=== PATIENT | male | born 1955 | race Caucasian/White ===

== ENCOUNTER → 2020-08-11 13:10 | Outpatient (BNVA) | payer MEDICARE, MEDICAID, SELFPAY | PROVIDERS: PCP Internal Medicine; Visit Provider Internal Medicine Endocrinology, Diabetes & Metabolism | DX: E11.65 Type 2 diabetes mellitus with hyperglycemia (principal); E11.21 Type 2 diabetes mellitus with diabetic nephropathy; E11.42 Type 2 diabetes mellitus with diabetic polyneuropathy; Z79.4 Long term (current) use of insulin; E53.8 Deficiency of other specified B group vitamins; E55.9 Vitamin D deficiency, unspecified; I10 Essential (primary) hypertension; E78.5 Hyperlipidemia, unspecified; E66.9 Obesity, unspecified; Z68.34 Body mass index [BMI] 34.0-34.9, adult | CPT/HCPCS: 82947; 99214 ==

== ENCOUNTER 2020-10-07 09:48 | Emergency (ER) | payer MEDICARE, MEDICAID, SELFPAY ==
[2020-10-07 09:50] VITALS: BP 147/69; BP 181/98; PULSE 104; PULSE 95; RESP 20; TEMP 36.7; O2SAT 94; O2SAT 97; BMI 35.3
--- NOTE | 2020-10-07 09:56 | CT_ITS ---
EXAMINATION: CT CERVICAL SPINE WITHOUT CONTRAST CLINICAL INFORMATION: Right arm pain COMPARISON: None TECHNIQUE: 3 mm thin axial and reformatted 2 mm thin sagittal and coronal images of cervical spine were obtained. This CT examination was performed using dose optimization techniques as appropriate, variously including the following: *Automated exposure control *Adjustment of mA and/or kV according to patient size (this includes techniques or standardized protocols for targeted exams where dose is matched to indication/reason for exam; i.e. extremities or head) *Use of iterative reconstruction technique DLP: 598 mGy-cm FINDINGS: There is mild straightening of cervical lordosis. There is loss of C5-C6, C6-C7 and C7-T1 disc levels with moderate ventral and posterior spondylosis. Rest the disc heights are normal. No visible acute fracture, dislocation or subluxation seen. There is bilateral C5-C6 and C6-C7 neural foraminal narrowing greater on the right at the C5-C6 disc level. The craniovertebral junction and the C1-C2 alignment is normal. The prevertebral and paravertebral soft tissues are normal. CT/CT cervical spine wo con IMPRESSION: Degenerative disc changes C5-C6 and C6-C7 disc levels with ventral and posterior spondylosis. There is no visible acute fracture, dislocation or subluxation seen.
--- NOTE | 2020-10-07 10:04 | ED_ITS ---
HPI - Extremity Problem General Chief complaint: Extremity Injury, Upper Stated complaint: arm pain Time Seen by Provider: 10/07/20 09:56 Source: patient Mode of arrival: ambulatory Limitations: no limitations History of Present Illness HPI Narrative: has been taking some OTC medication 250mg - 6 tabs a day up to 4 or 5 times a day unsure of what it is MD Complaint: extremity pain Onset (ago): week(s) (3) Pain Consistency: constant Location: right, upper extremity and other (also feels his right pinkie finger is numb) Quality: aching Radiation: none Relieving factors: nothing Exacerbating factors: nothing Associated symptoms: denies other symptoms Related Data Home Medications Medication Instructions Recorded Confirmed cyanocobalamin (vitamin B-12) 1,000 mcg SUBLINGUAL DAILY 08/11/20 09/24/20 1,000 mcg sublingual tablet nifedipine 30 mg tablet,extended 30 mg PO DAILY 08/11/20 09/24/20 release pen needle, diabetic 31 gauge x #1200 ea 08/11/20 09/24/2003/01 Previous Rx's Medication Instructions Recorded blood sugar diagnostic #300 ea 08/11/20 blood-glucose meter #1 ea 08/11/20 cholecalciferol (vitamin D3) 125 125 mcg PO DAILY 90 Days #90 cap 08/11/20 mcg (5,000 unit) capsule insulin degludec 200 unit/mL (3 70 unit SUBCUT DAILY 90 Days #45 ml 08/11/20 mL) subcutaneous pen lancets 28 gauge #300 ea 08/11/20 metformin 1,000 mg tablet 1,000 mg PO BID 90 Days #180 tab 08/11/20 repaglinide 1 mg tablet 1 mg PO TID 90 Days #270 tab 08/11/20 sitagliptin 100 mg tablet 100 mg PO DAILY 90 Days #90 tab 08/11/20 fluticasone 250 mcg-salmeterol 50 1 ea PO BID #180 cap 08/18/20 mcg/dose blistr powdr for inhalation lisinopril 5 mg tablet 5 mg PO DAILY #90 tab 08/29/20 simvastatin 40 mg tablet 40 mg PO BEDTIME #90 tab 09/01/20 sertraline 50 mg tablet 50 mg PO DAILY #90 tab 09/03/20 cyclobenzaprine 10 mg PO TID PRN #14 tab 12/22/20 hydrocodone-acetaminophen 1 tab PO Q6H PRN #12 tab 10/07/20 lidocaine 1 patch TOPICAL DAILY PRN #10 ea 10/07/20 Allergies Allergy/AdvReac Type Severity Reaction Status Date / Time No Known Allergies Allergy Unverified 07/03/20 15:01 [No Known Allergies*] Review of Systems Review of Systems: Constitutional : No Fever, No Chills ENT/Mouth : No Ear Pain, No Hoarseness, No sore throat Eyes: No Eye Pain, No Swelling, No Redness, No Foreign Body Cardiovascular : No Chest Pain, No SOB Respiratory : No Cough, No Dyspnea Gastrointestinal : No Nausea, No Vomiting, No Diarrhea, No abdominal Pain Genitourinary : No Dysuria, No Hematuria Musculoskeletal : positive joint pain, No Myalgias, No Joint Swelling Skin : No Skin lacerations, No rash Neuro : No Weakness, No Numbness, No Loss of Consciousness, No Dizziness, No Headache All other systems reviewed and are negative PMFSH Past Medical History Attestation statement: The following information was validated with the patient. Medical History B12 deficiency Depression, major, recurrent Diabetes type 2, uncontrolled Diabetic nephropathy Diabetic polyneuropathy associated with type 2 diabetes mellitus Dyslipidemia Hypertension halfway (current) use of insulin Obesity (BMI 30-39.9) Pain in right elbow Vitamin D deficiency Surgical History History of back surgery History of surgery of head Family History Family History Father Diabetes Mother Alzheimers disease Social History Social History Smoking Status: Current every day smoker Advance Directives: No Advance Directives Information Provided: Yes Physical Exam Vital Signs: Vital Signs: Last Vital Signs Temp 98.1 F 10/07/20 09:50 Pulse 95 10/07/20 09:50 Resp 20 10/07/20 09:50 BP 147/69 H 10/07/20 09:50 Pulse Ox 94 10/07/20 09:50 Body Mass Index 35.3 Appearance: Alert. Oriented X3. No acute distress. Eyes: Pupils equal, round and reactive to light. ENT: Pharynx normal. Neck: Normal inspection. Neck supple. negative spurling's CVS: Normal heart rate and rhythm. Pulses normal. Respiratory: No respiratory distress. Breath sounds normal. Abdomen: Soft and nontender. Skin: Skin warm and dry. Normal skin color. Normal skin turgor. Extremities: No lower extremity edema. No calf ttp reports pain in R forearm but not to palpation full ROM normal skin appearance no signs of infection, distal NV intact reports some tingling in R pinkie finger (in the whole finger) BCR in all digits, 2+ radial pulse Neuro: Oriented X 3. No motor deficit. No sensory deficit. Course Course Course Narrative: suspect radicular neck pain will start on PO pain medications stable for DC MDM - Extremity (Nontraumatic) MDM Narrative Medical decision making narrative: 65 yo male with DM here with 3 weeks of atraumatic R forearm pain no signs of infection/trauma/swelling/gout - he is NV intact, pain cannot be reproduced on my exam, bounding pulses, reports some decrease in sensation in R pinkie, will need labs due to taking OTC medication check Cr and liver, CT cspine for radicular pain as I cannot reproduce his pain, PO pain medications Lab Data Result diagrams: 10/07/20 10:24 10/07/20 10:24 Labs: Lab Results 10/07/20 10/07/20 10/07/20 Range/Units 10:24 10:24 10:24 WBC 8.7 (4.8-10.8) X10*3/uL RBC 5.07 (4.60-5.80) X10*6/uL Hgb 15.0 (14.0-18.0) g/dl Hct 44.7 (42-52) % MCV 88.2 (80-98) fL MCH 29.6 (27.0-33.0) pg MCHC 33.6 (31.0-36.0) g/dl RDW 14.5 (11.0-16.0) % Plt Count 261 (160-400) X10*3/uL MPV 9.5 (9.4-12.4) fL Immature Gran % (Auto) 0.9 H (0.0-0.4) % Neut % (Auto) 71.6 (45-73) % Lymph % (Auto) 15.5 L (20-40) % [place] % (Auto) 9.9 (2-11) % Eos % (Auto) 1.8 (0-4) % Baso % (Auto) 0.3 (0-2) % Lymph # (Auto) 1.3 (1.2-4.9) X10*3/uL [place] # (Auto) 0.9 (0.1-1.2) X10*3/uL Eos # (Auto) 0.2 (0.0-0.4) X10*3/uL Baso # (Auto) 0.0 (0.0-0.2) X10*3/uL Abs Immat Gran (auto) 0.08 H (0.00-0.03) X10*3/uL Absolute Neuts (auto) 6.2 (2.0-8.3) X10*3/uL Absolute Nucleated RBC 0.000 (0.0-0.012) X10*3/uL Nucleated RBC % (auto) 0.0 (0.0-0.2) /100WBC Sodium 136 (135-145) mmol/L Potassium 4.4 (3.3-5.1) mmol/l Chloride 104 (96-108) mmol/L Carbon Dioxide 22 (22-29) mmol/L Anion Gap 14 (12-20) BUN 20 H (9-16) mg/dL Creatinine 1.02 (0.5-1.4) mg/dL Estim Creat Clear Calc 90.6 Estimated GFR > 60 Random Glucose 242 H (60-115) mg/dL Calcium 10.3 H (8.4-10.2) mg/dL Total Bilirubin 0.3 (0.0-1.0) mg/dL Direct Bilirubin < 0.2 (0.0-0.5) mg/dL AST 14 (5-37) U/L ALT 32 (0-40) U/L Alkaline Phosphatase 58 (39-117) U/L Total Protein 7.1 (6.5-8.0) g/dL Albumin 4.3 (3.5-5.0) g/dL Discharge Plan Discharge Clinical Impression: Cervical radicular pain Arm pain Qualifiers: Laterality: right Qualified Code(s): M79.601 - Pain in right arm Patient Disposition: Home, Self-Care Instructions: Cervical Radiculopathy (ED), Arm Pain (ED) Additional Instructions: return to ED for any worsening symptoms or concerns your doctor needs to refer you to PT and possibly MRI of your neck if this does not improve Prescriptions: New cyclobenzaprine 10 mg tablet 10 mg PO TID PRN (Reason: muscle spasm) Qty: 14 RF: 0 lidocaine 4 % adhesive patch,medicated 1 patch topical DAILY PRN (Reason: pain) Qty: 10 RF: 0 hydrocodone-acetaminophen 5-325 mg tablet 1 tab PO Q6H PRN (Reason: pain) Qty: 12 RF: 0 No Action fluticasone propion-salmeterol [Advair Diskus] 250-50 mcg/dose blister with device 1 ea PO BID Qty: 180 RF: 0 lisinopril 5 mg tablet 5 mg PO DAILY Qty: 90 RF: 2 simvastatin 40 mg tablet 40 mg PO BEDTIME Qty: 90 RF: 0 sertraline 50 mg tablet 50 mg PO DAILY Qty: 90 RF: 0 nifedipine 30 mg tablet extended release 30 mg PO DAILY RF: 0 (DME) pen needle, diabetic 31 gauge x 5/16 needle See Rx Instructions ea subcut .MEDSUPPLY Qty: 1200 RF: 0 cyanocobalamin (vitamin B-12) 1,000 mcg tablet, sublingual 1,000 mcg sublingual DAILY RF: 0 insulin degludec 200 unit/mL (3 mL) insulin pen 70 unit subcut DAILY 90 Days Qty: 45 RF: 1 metformin 1,000 mg tablet 1,000 mg PO BID 90 Days Qty: 180 RF: 1 sitagliptin 100 mg tablet 100 mg PO DAILY 90 Days Qty: 90 RF: 1 repaglinide 1 mg tablet 1 mg PO TID 90 Days Qty: 270 RF: 1 (DME) blood-glucose meter [FreeStyle Lite Meter] Kit See Rx Instructions .ROUTE .MEDSUPPLY Qty: 1 RF: 0 (DME) FreeStyle Lite Strips Strip See Rx Instructions .ROUTE .MEDSUPPLY Qty: 300 RF: 1 (DME) lancets [FreeStyle Lancets] 28 gauge misc See Rx Instructions .ROUTE .MEDSUPPLY Qty: 300 RF: 1 cholecalciferol (vitamin D3) 125 mcg (5,000 unit) capsule 125 mcg PO DAILY 90 Days Qty: 90 RF: 1 Referrals: Toby Pugh MD [Primary Care Provider] - 5 days (if not better)
[2020-10-07] MEDS: oxyCODONE HCl Immed Release 5 MG TABLET 10 MG PO (10:12)
--- NOTE | 2020-10-07 10:20 | PC.NURSE ---
Patient states he has been take 6 orange pills that are 250mg multiple times a day for 3 weeks
[2020-10-07 10:34] LABS: MANUAL DIFF FLAG NO
[2020-10-07 10:35] LABS: Basophils Percent Auto 0.3 % (0-2); Eosinophils Absolute Auto 0.2 X10*3/uL (0.0-0.4); Eosinophils Percent Auto 1.8 % (0-4); Hematocrit 44.7 % (42-52); Imm Gran Abs Auto 0.08 X10*3/uL (0.00-0.03); Imm Gran Pct Auto 0.9 % (0.0-0.4); Lymphocytes Absolute Auto 1.3 X10*3/uL (1.2-4.9); Lymphocytes Percent Auto 15.5 % (20-40); Mean Corpuscular HGB Conc 33.6 g/dl (31.0-36.0); Mean Corpuscular Hemoglobin 29.6 pg (27.0-33.0); Mean Corpuscular Volume 88.2 fL (80-98); Mean Platelet Volume 9.5 fL (9.4-12.4); Monocytes Absolute Auto 0.9 X10*3/uL (0.1-1.2); Monocytes Percent Auto 9.9 % (2-11); Neutrophils Absolute Auto 6.2 X10*3/uL (2.0-8.3); Neutrophils Percent Auto 71.6 % (45-73); Platelet Count 261 X10*3/uL (160-400); Red Blood Count 5.07 X10*6/uL (4.60-5.80); Red Cell Distribution Width 14.5 % (11.0-16.0); White Blood Count 8.7 X10*3/uL (4.8-10.8)
[2020-10-07 11:01] LABS: Alanine Aminotransferase 32 U/L (0-40); Albumin Level 4.3 g/dL (3.5-5.0); Alkaline Phosphatase 58 U/L (39-117); Aspartate Amino Transferase 14 U/L (5-37); Bilirubin Direct < 0.2 mg/dL (0.0-0.5); Bilirubin Total 0.3 mg/dL (0.0-1.0); Total Protein 7.1 g/dL (6.5-8.0)
[2020-10-07 11:02] LABS: Anion Gap 14 (12-20); Blood Urea Nitrogen 20 mg/dL (9-16); Calcium 10.3 mg/dL (8.4-10.2); Carbon Dioxide 22 mmol/L (22-29); Chloride 104 mmol/L (96-108); Creatinine Clr Calc Pharmacy 90.6; Estimated Glomerular Filt Rate > 60; Glucose Random 242 mg/dL (60-115); Potassium 4.4 mmol/l (3.3-5.1); Sodium 136 mmol/L (135-145)
== END 2020-10-07 11:44 | disposition home or self-care (01) ==
PROVIDERS: Emergency Provider Emergency Medicine; PCP Internal Medicine
DX: M54.2 Cervicalgia (principal); M79.601 Pain in right arm; F17.200 Nicotine dependence, unspecified, uncomplicated; Z71.6 Tobacco abuse counseling; Z79.899 Other long term (current) drug therapy
CPT/HCPCS: 36415; 72125; 80048; 80076; 85025; 99284

== ENCOUNTER → 2020-12-08 13:45 | Outpatient (BNVA) | payer MEDICARE, MEDICAID, SELFPAY | PROVIDERS: PCP Internal Medicine; Visit Provider Internal Medicine Endocrinology, Diabetes & Metabolism | DX: E11.65 Type 2 diabetes mellitus with hyperglycemia (principal); E11.42 Type 2 diabetes mellitus with diabetic polyneuropathy; E11.21 Type 2 diabetes mellitus with diabetic nephropathy; E53.8 Deficiency of other specified B group vitamins; E55.9 Vitamin D deficiency, unspecified; E78.5 Hyperlipidemia, unspecified; E66.9 Obesity, unspecified; I10 Essential (primary) hypertension; Z79.4 Long term (current) use of insulin | CPT/HCPCS: 82947; 99212 ==

== ENCOUNTER → 2021-11-27 12:59 | Outpatient (BNVA) | payer OTHER, MEDICAID, SELFPAY | PROVIDERS: PCP Internal Medicine; Visit Provider Nurse Practitioner Gerontology | DX: E11.65 Type 2 diabetes mellitus with hyperglycemia (principal); E11.42 Type 2 diabetes mellitus with diabetic polyneuropathy; E11.21 Type 2 diabetes mellitus with diabetic nephropathy; E53.8 Deficiency of other specified B group vitamins; E55.9 Vitamin D deficiency, unspecified; E78.5 Hyperlipidemia, unspecified; E66.9 Obesity, unspecified; I10 Essential (primary) hypertension; Z79.4 Long term (current) use of insulin; Z68.37 Body mass index [BMI] 37.0-37.9, adult | CPT/HCPCS: 82947; 83036; 99212 ==

== ENCOUNTER 2022-02-24 09:43 | Outpatient (REF) | payer OTHER, SELFPAY ==
--- NOTE | ~2022-02-24 | XR_ITS ---
EXAMINATION: XR knee RT 2V CLINICAL INFORMATION: Reason for Exam M25.561 - Pain in right knee COMPARISON: Prior x-ray 2019 TECHNIQUE: frontal, lateral, tunnel and patella sunrise views FINDINGS: BONES: No fracture or dislocation is present. JOINTS: Narrowing of joint spaces and developed osteophytes from the edges of articular surfaces suggest degenerative osteoarthritis. SOFT TISSUE: Intra-articular calcification suggesting chondrocalcinosis, this has been described in association with CPPD. XR/XR knee RT 2V IMPRESSION: Moderate degenerative osteoarthritis. Intra-articular calcification chondrocalcinosis, this has been described in association with CPPD. Please correlate with patient's laboratory data.
--- NOTE | ~2022-02-24 | XR_ITS ---
EXAMINATION: 2 views left knee. CLINICAL INFORMATION: Pain COMPARISON: Prior x-ray 2019 TECHNIQUE: Frontal and lateral views. FINDINGS: BONES: No fracture or dislocation is present. JOINTS: Narrowing of joint spaces and developed osteophytes from the edges of articular surfaces suggest degenerative osteoarthritis. SOFT TISSUE: Intra-articular calcification suggesting chondrocalcinosis, this has been described in association with CPPD. XR/XR knee LT 2V IMPRESSION: Moderate degenerative osteoarthritis. Intra-articular calcification chondrocalcinosis, this has been described in association with CPPD. Please correlate with patient's laboratory data.
[2022-02-24 12:17] LABS: Vitamin D 25-OH Total 14.6 ng/mL (>30)
[2022-02-24 12:21] LABS: Alanine Aminotransferase 33 U/L (0-40); Albumin Level 3.8 g/dL (3.5-5.0); Alkaline Phosphatase 107 U/L (39-117); Anion Gap 14 (12-20); Aspartate Amino Transferase 22 U/L (5-37); Bilirubin Total 0.3 mg/dL (0.0-1.0); Blood Urea Nitrogen 12 mg/dL (9-16); Carbon Dioxide 23 mmol/L (22-29); Chloride 103 mmol/L (96-108); Cholesterol 184 mg/dL; Estimated Glomerular Filt Rate > 60; Glucose Fasting 310 mg/dL (60-99); HDL Cholesterol 27 mg/dL; Potassium 4.5 mmol/L (3.3-5.1); Sodium 135 mmol/L (135-145); Total Protein 6.9 g/dL (6.5-8.0); Triglycerides 407 mg/dL
[2022-02-24 12:28] LABS: Vitamin B12 297 pg/mL (200-900)
[2022-02-26 05:27] LABS: LDL Cholesterol Direct 120 mg/dL (<100)
== END 2022-02-24 09:44 | disposition home or self-care (01) ==
LOC: HO.HMGCX 09:43
PROVIDERS: Absent Provider Internal Medicine; PCP Internal Medicine; Visit Provider Nurse Practitioner Gerontology
DX: M25.561 Pain in right knee (principal); M25.562 Pain in left knee; E11.65 Type 2 diabetes mellitus with hyperglycemia; E55.9 Vitamin D deficiency, unspecified
CPT/HCPCS: 36415; 73560; 80053; 80061; 82306; 82607; 83721

== ENCOUNTER 2022-04-29 07:54 | Outpatient (REF) | payer OTHER, SELFPAY ==
--- NOTE | ~2022-04-29 | XR_ITS ---
EXAMINATION: XR KNEE AP STANDING XR KNEE, RIGHT XR KNEE, LEFT CLINICAL INFORMATION: Bilateral knee pain. COMPARISON: Radiographs bilateral knees 02/24/2022. TECHNIQUE: Standing AP view of both knees is performed. Axial view of each patella is also performed. FINDINGS: Right: No fracture or dislocation or destructive process. Borderline narrowing lateral knee joint compartment. No subchondral sclerosis. There is again extensive chondrocalcinosis involving both the menisci and articular cartilage. No erosive changes. No lateralization or tilting patella. Mineralization in region of proximal medial collateral ligament is likely related to remote MCL injury (Jai striata). Left: No fracture or dislocation or destructive process. No significant joint narrowing. No subchondral sclerosis. There is again extensive chondrocalcinosis involving both the menisci and articular cartilage. No erosive changes. No lateralization or tilting patella. XR/XR knee RT 1V IMPRESSION: Right: -Extensive chondrocalcinosis menisci and articular cartilage. No erosive change. -Borderline narrowing lateral compartment. No lateralization or tilting patella. -Focal mineralization in region of proximal medial collateral ligament, likely remote injury. Left: -Extensive chondrocalcinosis menisci and articular cartilage. No erosive change. -No definite knee joint narrowing. No lateralization or tilting patella.
--- NOTE | ~2022-04-29 | XR_ITS ---
EXAMINATION: XR KNEE AP STANDING XR KNEE, RIGHT XR KNEE, LEFT CLINICAL INFORMATION: Bilateral knee pain. COMPARISON: Radiographs bilateral knees 02/24/2022. TECHNIQUE: Standing AP view of both knees is performed. Axial view of each patella is also performed. FINDINGS: Right: No fracture or dislocation or destructive process. Borderline narrowing lateral knee joint compartment. No subchondral sclerosis. There is again extensive chondrocalcinosis involving both the menisci and articular cartilage. No erosive changes. No lateralization or tilting patella. Mineralization in region of proximal medial collateral ligament is likely related to remote MCL injury (Jai striata). Left: No fracture or dislocation or destructive process. No significant joint narrowing. No subchondral sclerosis. There is again extensive chondrocalcinosis involving both the menisci and articular cartilage. No erosive changes. No lateralization or tilting patella. XR/XR knee standing BI IMPRESSION: Right: -Extensive chondrocalcinosis menisci and articular cartilage. No erosive change. -Borderline narrowing lateral compartment. No lateralization or tilting patella. -Focal mineralization in region of proximal medial collateral ligament, likely remote injury. Left: -Extensive chondrocalcinosis menisci and articular cartilage. No erosive change. -No definite knee joint narrowing. No lateralization or tilting patella.
--- NOTE | ~2022-04-29 | XR_ITS ---
EXAMINATION: XR KNEE AP STANDING XR KNEE, RIGHT XR KNEE, LEFT CLINICAL INFORMATION: Bilateral knee pain. COMPARISON: Radiographs bilateral knees 02/24/2022. TECHNIQUE: Standing AP view of both knees is performed. Axial view of each patella is also performed. FINDINGS: Right: No fracture or dislocation or destructive process. Borderline narrowing lateral knee joint compartment. No subchondral sclerosis. There is again extensive chondrocalcinosis involving both the menisci and articular cartilage. No erosive changes. No lateralization or tilting patella. Mineralization in region of proximal medial collateral ligament is likely related to remote MCL injury (Jai striata). Left: No fracture or dislocation or destructive process. No significant joint narrowing. No subchondral sclerosis. There is again extensive chondrocalcinosis involving both the menisci and articular cartilage. No erosive changes. No lateralization or tilting patella. XR/XR knee LT 1V IMPRESSION: Right: -Extensive chondrocalcinosis menisci and articular cartilage. No erosive change. -Borderline narrowing lateral compartment. No lateralization or tilting patella. -Focal mineralization in region of proximal medial collateral ligament, likely remote injury. Left: -Extensive chondrocalcinosis menisci and articular cartilage. No erosive change. -No definite knee joint narrowing. No lateralization or tilting patella.
== END 2022-04-29 07:55 | disposition home or self-care (01) ==
LOC: HO.HOSX 07:54
PROVIDERS: Visit Provider Physician Assistant
DX: M17.2 Bilateral post-traumatic osteoarthritis of knee (principal)
CPT/HCPCS: 73560; 73565; 99202

== ENCOUNTER 2022-09-29 13:27 | Outpatient (REF) | payer OTHER, SELFPAY ==
[2022-09-29 16:32] LABS: MANUAL DIFF FLAG NO
[2022-09-29 16:36] LABS: Basophils Percent Auto 0.2 % (0-2); Eosinophils Absolute Auto 0.2 X10*3/uL (0.0-0.4); Eosinophils Percent Auto 2.1 % (0-4); Hematocrit 43.8 % (42.0-52.0); Hemoglobin 14.5 g/dl (14.0-18.0); Imm Gran Abs Auto 0.05 X10*3/uL (0.00-0.03); Imm Gran Pct Auto 0.6 % (0.0-0.4); Lymphocytes Absolute Auto 1.7 X10*3/uL (1.2-4.9); Lymphocytes Percent Auto 19.7 % (20-40); Mean Corpuscular HGB Conc 33.1 g/dl (31.0-36.0); Mean Corpuscular Hemoglobin 29.4 pg (27.0-33.0); Mean Corpuscular Volume 88.7 fL (80.0-98.0); Monocytes Absolute Auto 0.8 X10*3/uL (0.1-1.2); Monocytes Percent Auto 8.9 % (2-11); Neutrophils Percent Auto 68.5 % (45-73); Platelet Count 255 X10*3/uL (160-400); Red Blood Count 4.94 X10*6/uL (4.60-5.80); Red Cell Distribution Width 14.1 % (11.0-16.0); White Blood Count 8.7 X10*3/uL (4.8-10.8)
[2022-09-29 16:46] LABS: Estimated Average Glucose 203 mg/dL; Hemoglobin A1c % 8.7 %
[2022-09-29 17:19] LABS: Alanine Aminotransferase 35 U/L (0-40); Albumin Level 4.1 g/dL (3.5-5.0); Alkaline Phosphatase 78 U/L (39-117); Anion Gap 14 (12-20); Aspartate Amino Transferase 23 U/L (5-37); Bilirubin Total 0.4 mg/dL (0.0-1.0); Blood Urea Nitrogen 16 mg/dL (9-16); Calcium 9.5 mg/dL (8.4-10.2); Carbon Dioxide 23 mmol/L (22-29); Chloride 104 mmol/L (96-108); Estimated Glomerular Filt Rate > 60; Glucose Random 183 mg/dL (60-115); Potassium 4.2 mmol/L (3.3-5.1); Sodium 137 mmol/L (135-145); TSH reflex Free T4 1.68 uIU/mL (0.32-4.0); Total Protein 6.8 g/dL (6.5-8.0)
[2022-09-29 17:28] LABS: Vitamin B12 425 pg/mL (200-900)
[2022-10-06 16:14] LABS: LDL Cholesterol Direct 160 mg/dL (<100); Vitamin D 25-OH, D2 <4 ng/mL; Vitamin D 25-OH, D3 14 ng/mL; Vitamin D 25-OH, Total 14 ng/mL (30-100)
== END 2022-09-29 13:28 | disposition home or self-care (01) ==
LOC: HO.HMGCLDS 13:27
PROVIDERS: PCP Internal Medicine; Visit Provider Internal Medicine
DX: E11.21 Type 2 diabetes mellitus with diabetic nephropathy (principal); E11.42 Type 2 diabetes mellitus with diabetic polyneuropathy; E11.65 Type 2 diabetes mellitus with hyperglycemia; E53.8 Deficiency of other specified B group vitamins; E55.9 Vitamin D deficiency, unspecified; E66.9 Obesity, unspecified; E78.5 Hyperlipidemia, unspecified; F33.9 Major depressive disorder, recurrent, unspecified; I10 Essential (primary) hypertension; Z79.4 Long term (current) use of insulin
CPT/HCPCS: 36415; 80053; 82306; 82607; 83036; 83721; 84443; 85025

== ENCOUNTER 2023-01-28 14:38 | Outpatient (REF) | payer OTHER, SELFPAY ==
[2023-01-28 16:35] LABS: Hematocrit 45.1 % (42.0-52.0); Hemoglobin 15.2 g/dl (14.0-18.0)
[2023-01-28 16:40] LABS: Estimated Average Glucose 223 mg/dL; Hemoglobin A1c % 9.4 %
[2023-01-28 16:51] LABS: Alanine Aminotransferase 37 U/L (0-40); Albumin Level 4.2 g/dL (3.5-5.0); Alkaline Phosphatase 99 U/L (39-117); Anion Gap 12 (12-20); Aspartate Amino Transferase 25 U/L (5-37); Bilirubin Total 0.5 mg/dL (0.0-1.0); Blood Urea Nitrogen 9 mg/dL (9-16); Calcium 9.6 mg/dL (8.4-10.2); Carbon Dioxide 23 mmol/L (22-29); Chloride 105 mmol/L (96-108); Estimated Glomerular Filt Rate > 60; Glucose Random 133 mg/dL (60-115); Potassium 4.2 mmol/L (3.3-5.1); Sodium 136 mmol/L (135-145); Total Protein 7.1 g/dL (6.5-8.0)
[2023-01-30 09:43] LABS: LDL Cholesterol Direct 128 mg/dL (<100)
== END 2023-01-28 14:39 | disposition home or self-care (01) ==
LOC: HO.HMGCLDS 14:38
PROVIDERS: PCP Internal Medicine; Visit Provider Internal Medicine
DX: E11.42 Type 2 diabetes mellitus with diabetic polyneuropathy (principal); E11.65 Type 2 diabetes mellitus with hyperglycemia; E66.9 Obesity, unspecified; E78.5 Hyperlipidemia, unspecified; F33.9 Major depressive disorder, recurrent, unspecified; I10 Essential (primary) hypertension; Z79.4 Long term (current) use of insulin
CPT/HCPCS: 36415; 80053; 83036; 83721; 85014; 85018

== ENCOUNTER 2023-06-15 19:18 | Emergency (ER) | payer OTHER, SELFPAY ==
--- NOTE | ~2023-06-15 | CT_ITS ---
EXAMINATION: CT CERVICAL SPINE WITHOUT CONTRAST CLINICAL INFORMATION: Neck pain COMPARISON: Portions of a previous study 10/07/20 TECHNIQUE: Multidetector CT. Examination of the cervical spine. No contrast. This CT examination was performed using dose optimization techniques as appropriate, variously including the following: *Automated exposure control *Adjustment of mA and/or kV according to patient size (this includes techniques or standardized protocols for targeted exams where dose is matched to indication/reason for exam; i.e. extremities or head) *Use of iterative reconstruction technique DLP: 541 mGy-cm FINDINGS: Study limited by motion artifact There is no acute fracture or subluxation. There is reversal of expected lordosis. There is marked narrowing of the C5/C6 and C6/C7 discs. There is sclerosis throughout the mid cervical spine. There are relative areas of lucency at multiple levels similar to previous. There are osteophytes anteriorly and posteriorly and there is bilateral foraminal narrowing. There is narrowing of the facets with proliferative osteophytes bilaterally. The canal contents are not well evaluated. There is some central canal and lateral recess/foraminal narrowing. Motion limits assessment of the lung apices. CT/CT cervical spine wo IV con IMPRESSION: Degenerative disc and degenerative joint disease with reversal of expected lordosis. No acute fracture or subluxation. Fleischner guidelines were followed.
--- NOTE | 2023-06-15 19:32 | MHC.EDTECH ---
THIS TECH TOOK OVER CARE AT 1930 ED ROUNDS ARE DONE RN IS AT BEDSIDE PATIENT IS RESTING COMFORTABLY WILL CONTINUE MONITORING
[2023-06-15 19:34] VITALS: BP 135/67; BP 150/90; PULSE 96; RESP 14; TEMP 36.8; O2SAT 95; O2SAT 96; BMI 34.9
--- NOTE | 2023-06-15 19:43 | PC.NURSE ---
Pt aox4 at the bedside reporting neck pain, 9/10, that began earlier this morning. Reports pain has worsen throughout the day. Decreased ROM. Denies headache, N/V/D, chest pain, sob. Reports bilateral knee and ankle arthritis. Pending physician eval.
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
[2023-06-15 20:20] LABS: MANUAL DIFF FLAG NO
[2023-06-15] MEDS: Ketorolac Tromethamine 15 MG/ML VIAL IVPUSH (20:22)
[2023-06-15] MEDS: HYDROmorphone HCl 0.5 MG/0.5 ML SYRINGE IVPUSH (20:22)
[2023-06-15] MEDS: LORazepam 2 MG/ML VIAL 0.5 MG IVPUSH (20:23)
--- NOTE | 2023-06-15 20:27 | PC.NURSE ---
20G IV line placed on the left FA. Pt medicated for pain as ordered. Tolerated well. Pending ct scan. Pt aware of plan of care.
[2023-06-15 20:42] LABS: Anion Gap 14 (12-20); Blood Urea Nitrogen 9 mg/dL (9-16); Calcium 9.3 mg/dL (8.4-10.2); Carbon Dioxide 23 mmol/L (22-29); Chloride 106 mmol/L (96-108); Creatinine Clr Calc Pharmacy 137.5; Estimated Glomerular Filt Rate > 60; Glucose Random 102 mg/dL (60-115); Potassium 3.8 mmol/L (3.3-5.1); Sodium 139 mmol/L (135-145)
[2023-06-15 20:44] LABS: Basophils Percent Auto 0.2 % (0-2); Eosinophils Absolute Auto 0.1 X10*3/uL (0.0-0.4); Eosinophils Percent Auto 0.7 % (0-4); Imm Gran Abs Auto 0.07 X10*3/uL (0.00-0.03); Imm Gran Pct Auto 0.5 % (0.0-0.4); Lymphocytes Absolute Auto 1.3 X10*3/uL (1.2-4.9); Lymphocytes Percent Auto 9.6 % (20-40); Mean Corpuscular HGB Conc 33.3 g/dl (31.0-36.0); Mean Corpuscular Hemoglobin 27.9 pg (27.0-33.0); Mean Corpuscular Volume 83.8 fL (80.0-98.0); Mean Platelet Volume 9.4 fL (9.4-12.4); Monocytes Absolute Auto 1.1 X10*3/uL (0.1-1.2); Monocytes Percent Auto 7.6 % (2-11); Neutrophils Absolute Auto 11.4 x10*3/uL (2.0-8.3); Neutrophils Percent Auto 81.4 % (45-73); Platelet Count 331 X10*3/uL (160-400); Red Blood Count 5.01 X10*6/uL (4.60-5.80); Red Cell Distribution Width 14.5 % (11.0-16.0)
[2023-06-15 21:23] VITALS: BP 116/54; PULSE 92; RESP 14; TEMP 37; O2SAT 90
--- NOTE | 2023-06-15 21:27 | PC.NURSE ---
Pt aox4 resting at the bedside. Reports improved ROM on the neck. Pt able to turn head to the left side with minimal discomfort. Reports neck pain 8/10. Pending ct scan results. Pt aware of plan of care.
[2023-06-15 22:20] VITALS: BP 113/50; PULSE 94; RESP 14; TEMP 36.9; O2SAT 93
--- NOTE | 2023-06-15 22:32 | PC.NURSE ---
IV line removed with no complications. Discharge instructions reviewed with pt. Pt verbalizes understanding. Pending EMS transport to home. [employer] aware.
== END 2023-06-15 23:02 | disposition home or self-care (01) ==
PROVIDERS: Emergency Provider Emergency Medicine Emergency Medical Services
DX: M43.6 Torticollis (principal); E11.9 Type 2 diabetes mellitus without complications; I10 Essential (primary) hypertension; E78.5 Hyperlipidemia, unspecified; F17.210 Nicotine dependence, cigarettes, uncomplicated; E66.9 Obesity, unspecified; Z68.34 Body mass index [BMI] 34.0-34.9, adult; Z79.899 Other long term (current) drug therapy
CPT/HCPCS: 36415; 72125; 80048; 85025; 96374; 96375; 99284; 99285; J1170; J1885; J2060

== ENCOUNTER 2023-07-10 18:17 | Emergency (ER) | payer OTHER, SELFPAY ==
--- NOTE | ~2023-07-10 | CT_ITS ---
EXAMINATION: CT LUMBAR SPINE WITHOUT CONTRAST CLINICAL INFORMATION: Fall off scooter. Low back pain. Rule out fracture. COMPARISON: None available. TECHNIQUE: Multidetector volumetric imaging was obtained through the lumbar spine without contrast. Multiplanar reformatted images in coronal and sagittal orientations were submitted. This CT examination was performed using dose optimization techniques as appropriate, variously including the following: *Automated exposure control *Adjustment of mA and/or kV according to patient size (this includes techniques or standardized protocols for targeted exams where dose is matched to indication/reason for exam; i.e. extremities or head) *Use of iterative reconstruction technique DLP; 788 mGy-cm FINDINGS: Vertebral body heights are normal. No fractures. There is grade 1 anterolisthesis of L4 on L5 by 4 mm as well as grade 1 retrolisthesis of L1 on L2 by 2 mm. Mild multilevel degenerative disc disease is characterized by loss of vertebral disc height with endplate osteophytes. There is severe facet arthropathy at L4-L5 and more mild to moderate facet arthropathy at the levels of the lumbar spine. No aggressive osseous lesions. [id number] osteoarthritis in the SI joints. There is a 2.2 cm left adrenal nodule with attenuation value of -6 Hounsfield units, consistent with a lipid rich adrenal adenoma. No recommended imaging follow-up. No acute soft tissue abnormalities are identified. Mild calcific atherosclerosis abdominal aorta and iliac arteries. At L4-L5, there is at least moderate central canal stenosis produced by a grade 1 anterolisthesis of L4 forward on L5, s s arthropathy, ligamentum flavum thickening, and a mild disc bulge. There is severe right and moderate to severe left neural foraminal encroachment with mass effect upon the exiting L4 nerve roots. More mild central canal narrowing is suspected at the L3-L4 level due to a mild disc bulge and ligamentum flavum thickening. More mild neural foraminal encroachment is also suspected at L3-L4 bilaterally due to facet arthropathy and a mild disc bulge. No additional sites of significant central canal or neural foraminal encroachment. CT/CT lumbar spine wo IV con IMPRESSION: 1. No acute fracture in the lumbar spine. No aggressive osseous lesions. 2. Grade 1 anterolisthesis of L4 on L5 with severe facet arthropathy and a mild disc bulge. This results in at least moderate central canal stenosis as well as severe right and moderate to severe left neural foraminal encroachment with mass effect upon the exiting L4 nerve roots. 3. Mild multilevel degenerative disc disease and facet arthropathy.
[2023-07-10 18:26] VITALS: BP 180/80; PULSE 104; O2SAT 98
[2023-07-10 18:38] VITALS: BP 167/73; PULSE 89; RESP 18; TEMP 36.1; O2SAT 95; BMI 32.9
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
[2023-07-10] MEDS: Acetaminophen 325 MG TABLET 975 MG PO (20:37)
[2023-07-10] MEDS: Morphine Sulfate Immed Release 15 MG TABLET PO (20:37)
[2023-07-10 22:10] VITALS: BP 158/70; PULSE 86; RESP 16; TEMP 36.8; O2SAT 97
== END 2023-07-11 00:21 | disposition home or self-care (01) ==
PROVIDERS: Emergency Provider Emergency Medicine Emergency Medical Services; PCP Internal Medicine
DX: S33.5XXA Sprain of ligaments of lumbar spine, initial encounter (principal); F17.210 Nicotine dependence, cigarettes, uncomplicated; W01.0XXA Fall on same level from slipping, tripping and stumbling without subsequent striking against object, initial encounter; Y93.9 Activity, unspecified; Y92.9 Unspecified place or not applicable; Y99.9 Unspecified external cause status; Z79.899 Other long term (current) drug therapy; Z71.6 Tobacco abuse counseling
CPT/HCPCS: 72131; 99284

== ENCOUNTER 2023-10-05 13:03 | Emergency (ER) | payer OTHER, SELFPAY ==
--- NOTE | ~2023-10-05 | CT_ITS ---
EXAMINATION: CT HEAD WITHOUT CONTRAST CLINICAL INFORMATION: Change in mental status. COMPARISON: CT head from 03/03/2019. TECHNIQUE: Contiguous axial imaging was performed from the skull base to vertex without intravenous administration of contrast. This CT examination was performed using dose optimization techniques as appropriate, variously including the following: *Automated exposure control. *Adjustment of mA and/or kV according to patient size (this includes techniques or standardized protocols for targeted exams where dose is matched to indication/reason for exam; i.e. extremities or head). *Use of iterative reconstruction technique. DLP: 792 mGy-cm FINDINGS: There is no evidence of acute intracranial hemorrhage or edematous territorial infarction. Garcia-white matter differentiation is preserved. Scattered and partially confluent hypoattenuation in the periventricular and deep white matter are consistent with moderate microangiopathy. Proportional prominence of the ventricles and sulcal spaces without evidence of obstructive hydrocephalus. No abnormal mass effect or midline shift. No extra-axial fluid collections. Calcific atherosclerotic disease of the intracranial internal carotid and vertebral arteries. No hyperdense vessel sign. No acute soft tissue or osseous abnormalities. Mild mucosal thickening of the paranasal sinuses. The mastoid air cells and middle ear cavities are clear. CT/CT head/brain wo IV con IMPRESSION: 1. No evidence of acute intracranial hemorrhage or edematous territorial infarction. 2. Moderate underlying microangiopathy and generalized cerebral volume loss.
[2023-10-05 13:22] VITALS: BP 147/67; PULSE 78; RESP 18; TEMP 35.9; O2SAT 95; BMI 38.0
--- NOTE | 2023-10-05 13:37 | ED_ITS ---
HPI - Medical Clearance General Chief complaint: Medical Clearance Stated complaint: SEC 12,LIVING IN UNINHABITAL CONDITIONS PER EMS Time Seen by Provider: 10/05/23 13:36 Source: patient Mode of arrival: EMS Limitations: no limitations History of Present Illness HPI Narrative: 68-year-old male with history of depression, obesity, dyslipidemia, hypertension, diabetes mellitus, diabetic neuropathy, who was placed on a Section 12 by the police after social media coordinator deemed that the patient's living situation was unsafe. The following information was obtained from the Section 12: ?unable to verify dates, living in on an however double conditions. Self aware The patient told me that his apartment is unclean because the person that occludes is apartment has not been able to come. He also states that his social media coordinator quit. The patient is a wearing a shirt and cover also that are covered in dirt and food. The patient seems to confabulate answers to every question. Patient skin is on clean and is clear that the patient has not been bathing. Patient denied being suicidal or homicidal. He states he does not want to be here and he will not cooperate or let us draw his blood.. Related Information Home Medications Medication Instructions Recorded Confirmed cyanocobalamin (vitamin B-12) 1,000 mcg sublingual DAILY 08/11/20 01/28/23 1,000 mcg sublingual tablet Previous Rx's Medication Instructions Recorded blood sugar diagnostic (FreeStyle #300 ea 08/11/20 Lite Strips) blood-glucose meter (FreeStyle #1 ea 08/11/20 Lite Meter kit) cholecalciferol (vitamin D3) 125 125 mcg PO DAILY 90 days #90 caps 08/11/20 mcg (5,000 unit) capsule lancets 28 gauge (FreeStyle #300 ea 08/11/20 Lancets) lidocaine 4 % topical patch 1 patch topical DAILY PRN pain #10 10/07/20 ea pen needle, diabetic 31 gauge x #1,200 ea 08/26/2203/01 sertraline 50 mg tablet 50 mg PO DAILY #90 tabs 12/02/22 nifedipine 30 mg tablet,extended 30 mg PO DAILY #90 tabs 12/07/22 release 24 hr repaglinide 2 mg tablet 2 mg PO TID #270 tabs 12/07/22 celecoxib 200 mg capsule (Celebrex) 200 mg PO DAILY 30 days #30 caps 01/28/23 fluticasone 250 mcg-salmeterol 50 1 ea PO BID #180 caps 02/23/23 mcg/dose blistr powdr for inhalation (Advair Diskus) lisinopril 5 mg tablet 5 mg PO DAILY #90 tabs 03/25/23 metformin 1,000 mg tablet 1,000 mg PO BID 90 days #180 tabs 04/22/23 sitagliptin phosphate 100 mg tablet 100 mg PO DAILY 90 days #90 tabs 04/22/23 cyclobenzaprine 10 mg tablet 10 mg PO TID PRN pain #14 tabs 06/15/23 acetaminophen 500 mg tablet 1,000 mg (2 x 500 mg) PO Q6H PRN 07/10/23 (Tylenol Extra Strength) fever or pain #20 tabs ibuprofen 400 mg tablet 400 mg PO TID PRN fever or pain 07/10/23 #30 tabs morphine 15 mg immediate release 15 mg PO Q4-6H PRN pain #10 tabs 07/10/23 tablet insulin degludec 200 unit/mL (3 80 unit (0.4 mL) subcut DAILY #12 07/29/23 mL) subcutaneous pen (Tresiba mL FlexTouch U-200 insulin) simvastatin 40 mg tablet 40 mg PO BEDTIME #30 tabs 07/29/23 Allergies Allergy/AdvReac Type Severity Reaction Status Date / Time No Known Allergies Allergy Verified 10/05/23 13:22 [No Known Allergies*] Review of Systems Review of Systems: Yes all other systems are reviewed and are negative [facility] Past Medical History [facility] Narrative: Social history: Patient states he lives alone. He states that he rolls his own cigarettes and smokes 15-20 cigarettes per day for at least 50 years. He drinks 1/2 gal of alcohol over a 2 week. He denies drug use. Medical History Bilateral post-traumatic osteoarthritis of knee Pain in right elbow Depression, major, recurrent Obesity (BMI 30-39.9) Dyslipidemia Hypertension Vitamin D deficiency B12 deficiency Diabetic nephropathy Diabetic polyneuropathy associated with type 2 diabetes mellitus 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 Diabetes type 2, uncontrolled Surgical History History of surgery of head History of back surgery Family History Family History Father Diabetes Mother Alzheimers disease Social History Social History Household Members: None Housing: Apartment Alcohol intake: current Alcohol intake frequency: does not drink Alcohol type: hard liquor Patient Tobacco Use Status: Current everyday Tobacco user Cigarette Packs Per Day: 1.5 e-Cigarette/Vaping Use: Never Used Advance Directives: No service: No Current occupational status: unemployed, retired and disabled Cognitive needs: No Hearing needs: No Vision needs: Yes Physical Exam Vital Signs: Vital Signs: Last Vital Signs Temp 96.7 F L 10/05/23 13:22 Pulse 78 10/05/23 13:22 Resp 18 10/05/23 13:22 BP 147/67 H 10/05/23 13:22 Pulse Ox 95 10/05/23 13:22 O2 Del Method Room Air 10/05/23 13:22 BMI result Body Mass Index 38.0 Vital signs were normal Exam: General: Awake, alert, oriented to person. Patient is unkempt, his skin is covered with dirt cough, his clothes are covered with dirt and old food. Head: Normocephalic, atraumatic EENT: PERRL, Lids normal, sclera normal, conjunctiva normal, nose normal , ears normal, throat without erythema or exudates Neck: Supple, no adenopathy, no trachea midline or C-spine tenderness Lung: breath sounds symmetric, no wheezing, rales or rhonchi Chest: symmetric movement, nontender Heart: regular rate and rhythm, normal S1, S2 no murmurs or rubs Abdomen: soft, non-tender, nondistended, normal bowel sounds Back: no vertebral tenderness, no CVAT Extremities: no deformities, moves all extremities symmetrically Neuro: Awake, alert, oriented, normal speech, cranial nerves intact, moves all extremities symmetrically Psych: Patient is agitated about being here in the emergency department and developed being brought here by ambulance against as will. Medical Decision Making Medical Decision Making MDM Narrative: 68-year-old male with history of depression, obesity, dyslipidemia, hypertension, diabetes mellitus, diabetic neuropathy, who was placed on a Section 12 by the police after social media coordinator deemed that the patient's living situation was unsafe. The following information was obtained from the Section 12: ?unable to verify dates, living in on an however double conditions. Self aware . Vital signs were normal. Patient is very unkempt and it is clear that he has not been washing his clothes her bathing. Patient seems to confabulate answers to every question. Exam was otherwise unremarkable. Following evaluation was ordered: CBC, CMP, lipase, ethanol level, urine drug screen, TSH with free T4, urinalysis, COVID-19, influenza and RSV I will consult care team in case puente to determine disposition At the end of my shift, patient's care was turned over to my colleague, Dr. Tracee Lopez. Differential Diagnosis Differential Diagnoses: The differential diagnosis associated with the presentation includes Differential diagnosis includes was not limited to psychiatric illness, alcoholic dementia, thyroid disease, electrolyte abnormalities, anemia Admission/Observation Consideration of admission/observation: Escalation of care including a dmission/observation considered External Record Review External record reviewed: Other (Section 12) Chronic Conditions Patient?s care impacted by: Diabetes Discharge Plan Discharge Clinical Impression: Moderate dementia associated with alcoholism, Unsatisfactory living conditions Prescriptions: No Action (DME) pen needle, diabetic 31 gauge x 5/16 needle See Rx Instructions subcut .MEDSUPPLY Qty: 1200 3RF Rx Instructions: As directed sertraline 50 mg tablet 50 mg PO DAILY Qty: 90 3RF repaglinide 2 mg tablet 2 mg PO TID Qty: 270 2RF nifedipine 30 mg tablet extended release 24hr 30 mg PO DAILY Qty: 90 2RF fluticasone propion-salmeterol [Advair Diskus] 250-50 mcg/dose blister with device 1 ea PO BID Qty: 180 5RF lisinopril 5 mg tablet 5 mg PO DAILY Qty: 90 1RF metformin 1,000 mg tablet 1,000 mg PO BID 90 Days Qty: 180 6RF sitagliptin phosphate 100 mg tablet 100 mg PO DAILY 90 Days Qty: 90 1RF Tresiba FlexTouch U-200 200 unit/mL (3 mL) insulin pen 80 unit subcut DAILY Qty: 12 6RF simvastatin 40 mg tablet 40 mg PO BEDTIME Qty: 30 2RF lidocaine 4 % adhesive patch,medicated 1 patch topical DAILY PRN (Reason: pain) Qty: 10 0RF Rx Instructions: may leave on for up to 12 hrs cyclobenzaprine 10 mg tablet 10 mg PO TID PRN (Reason: pain) Qty: 14 0RF acetaminophen [Tylenol Extra Strength] 500 mg tablet 1,000 mg PO Q6H PRN (Reason: fever or pain) Qty: 20 0RF ibuprofen 400 mg tablet 400 mg PO TID PRN (Reason: fever or pain) Qty: 30 0RF morphine 15 mg tablet 15 mg PO Q4-6H PRN (Reason: pain) Qty: 10 0RF Rx Instructions: The patient may ask for partial fill; Partial Fill upon patient request. celecoxib [Celebrex] 200 mg capsule 200 mg PO DAILY 30 Days Qty: 30 0RF cyanocobalamin (vitamin B-12) 1,000 mcg tablet, sublingual 1,000 mcg sublingual DAILY (DME) blood-glucose meter [FreeStyle Lite Meter] Kit See Rx Instructions .ROUTE .MEDSUPPLY Qty: 1 0RF Rx Instructions: 4 times a day (DME) FreeStyle Lite Strips Strip See Rx Instructions .ROUTE .MEDSUPPLY Qty: 300 1RF Rx Instructions: 3 times a day (DME) lancets [FreeStyle Lancets] 28 gauge misc See Rx Instructions .ROUTE .MEDSUPPLY Qty: 300 1RF Rx Instructions: 3 times a day cholecalciferol (vitamin D3) 125 mcg (5,000 unit) capsule 125 mcg PO DAILY 90 Days Qty: 90 1RF
[2023-10-05 17:52] LABS: MANUAL DIFF FLAG NO
[2023-10-05 18:11] LABS: Alanine Aminotransferase 14 U/L (0-40); Albumin Level 3.9 g/dL (3.5-5.0); Alkaline Phosphatase 80 U/L (39-117); Anion Gap 12 (12-20); Aspartate Amino Transferase 15 U/L (5-37); Bilirubin Total 0.3 mg/dL (0.0-1.0); Blood Urea Nitrogen 13 mg/dL (9-16); Calcium 9.7 mg/dL (8.4-10.2); Carbon Dioxide 24 mmol/L (22-29); Chloride 107 mmol/L (96-108); Creatinine Clr Calc Pharmacy 135.4; Estimated Glomerular Filt Rate > 60; Ethanol < 10 mg/dL; Glucose Random 85 mg/dL (60-115); Lipase 14 U/L (8-78); Potassium 3.8 mmol/L (3.3-5.1); Sodium 139 mmol/L (135-145); Total Protein 7.4 g/dL (6.5-8.0)
--- NOTE | 2023-10-05 18:13 | MHC.CM.ED ---
Received consult from Dr. Shannon. Pt arrived on section 12. Per record, living conditions uninhabitable. Hx ETOH and smoking. Depression, obesity, hypertension and diabetes with neuropathy. Pt is unkempt in appearance with unclean clothes, old shoes without laces and no socks. Care Team consult pending. CM will evaluate pending Care Team assessment. CM following.
[2023-10-05 18:15] LABS: Basophils Percent Auto 0.3 % (0-2); Eosinophils Absolute Auto 0.2 X10*3/uL (0.0-0.4); Eosinophils Percent Auto 1.3 % (0-4); Hematocrit 45.9 % (42.0-52.0); Hemoglobin 15.4 g/dl (14.0-18.0); Imm Gran Abs Auto 0.06 X10*3/uL (0.00-0.03); Imm Gran Pct Auto 0.4 % (0.0-0.4); Lymphocytes Absolute Auto 1.7 X10*3/uL (1.2-4.9); Lymphocytes Percent Auto 12.8 % (20-40); Mean Corpuscular HGB Conc 33.6 g/dl (31.0-36.0); Mean Corpuscular Hemoglobin 28.9 pg (27.0-33.0); Mean Corpuscular Volume 86.1 fL (80.0-98.0); Mean Platelet Volume 9.7 fL (9.4-12.4); Monocytes Absolute Auto 0.9 X10*3/uL (0.1-1.2); Monocytes Percent Auto 6.8 % (2-11); Neutrophils Absolute Auto 10.6 x10*3/uL (2.0-8.3); Neutrophils Percent Auto 78.4 % (45-73); Platelet Count 308 X10*3/uL (160-400); Red Blood Count 5.33 X10*6/uL (4.60-5.80); Red Cell Distribution Width 14.4 % (11.0-16.0); White Blood Count 13.5 X10*3/uL (4.8-10.8)
[2023-10-05 18:34] LABS: TSH reflex Free T4 2.06 uIU/mL (0.32-4.0)
--- NOTE | 2023-10-05 18:38 | PC.NURSE ---
patient has been resting quietly in hallway bed in front of nurses station. patient will suddenly voice that he is leaving due to having to go home and feed his cat. patient is redirectable but is consistant on leaving the ED. patient is on sect 12 due to living conditions. patient denied his dinner tray stating he only eats one time a day at breakfast. patient states he has a visiting nurse who comes every day and draws his labs and does his insulin. respirations equal and unlabored, patient is unkempt but skin is dry and intact. alert and oriented x 3
[2023-10-05 18:49] LABS: Folate 5.1 ng/mL (> or = 4.0); Vitamin B12 440 pg/mL (200-900)
--- NOTE | 2023-10-05 20:31 | MHC.EDTECH ---
Patient stated that he is able to refuse to pee and is refusing to let staff take vitals, swab or obtain urine.
--- NOTE | 2023-10-05 21:13 | MHC.CM.ED ---
Pt refusing urine sample. Demanding to go home. CM met with patient. Very unkempt with filthy clothing with caked on dirt. A&O x3. Lives alone. Uses scooter and walker. Has MOW. Has [employer]. SSDI. States daily medication from [place]. Called and referral placed. Pt admits that his clothes are very dirty, but states he cannot get to housing authority for voucher for laundry. States policy manager hasn't come in months. States he cannot get physically into shower, so he sponge bathes. Is estranged from 2 local siblings. States he does speak with an elder sister in [place], [place] ([phone]). Message left. Pt was a section 12 from [place] police to ED. Pt appears to have capacity. Dr. Lopez in to see pt. Believes patient can be discharged to home. CM will file with [facility] for Elder at risk.
--- NOTE | 2023-10-05 22:26 | PC.NURSE ---
pt continues to refuse vital signs. ems provided with report prior to transport. pt provided with discharge packet pt verbalized understanding of discharge plan. per nurse casey saw operator, dr helton, and charge weigher pt safe for discharge
== END 2023-10-05 22:29 | disposition home or self-care (01) ==
PROVIDERS: Emergency Medicine Emergency Medical Services; Emergency Provider Student in an Organized Health Care Education/Training Program; PCP Internal Medicine
DX: F33.1 Major depressive disorder, recurrent, moderate (principal); F10.97 Alcohol use, unspecified with alcohol-induced persisting dementia; Y90.9 Presence of alcohol in blood, level not specified; F17.210 Nicotine dependence, cigarettes, uncomplicated; R51.9 Headache, unspecified; Z71.6 Tobacco abuse counseling; Z79.899 Other long term (current) drug therapy
CPT/HCPCS: 36415; 70450; 80053; 80307; 82607; 82746; 83690; 84443; 85025; 99284

== ENCOUNTER 2023-12-02 07:53 | Outpatient (AMB) | payer OTHER, SELFPAY ==
--- OUTSIDE RECORDS SUMMARY | 2023-12-02 07:53 | XMS_ITS | Continuity of Care Document ---
Author Name Unknown Organization [facility] Address [address] [place] [id number] Care Team Providers Care Gear Nicker Name Role Phone Keaton MITCHELL, Toby Primary Care Physician Encounter [facility] Date(s): 10/29/23 - 11/28/23 [facility] [address] [place] [id number] Patient Care team information Care Team Personnel Name: Toby Pugh MD Position: [facility] Physician - Primary Care Member Role: PCP Address: Address: [address] [place] [id number]- Care Team Related Persons Name: IFRAH BANKS Address: home [address] [place] [address]
[2023-12-02 08:06] VITALS: BP 136/74; PULSE 82; O2SAT 95; BMI 35.1
--- NOTE | 2023-12-02 08:06 | A.OFFPC_ITS ---
Vital Signs 12/02/23 08:06 Height 5 ft 8 in Weight 231 lb BMI 35.1 BP 136/74 Blood Pressure Location Lt brachial Position Sitting Pulse 82 Pulse Source Pulse Oximeter Pulse Oximetry (%) 95 Oxygen Delivery Method Room Air Intake Visit Reasons: Trouble walking/ numb fingers Allergies No Known Allergies [No Known Allergies*] Allergy (Verified 12/02/23 08:10) Medication List - Last Reconciled 12/02/23 by Toby Pugh MD blood sugar diagnostic (FreeStyle Lite Strips) 3 times a day blood-glucose meter (FreeStyle Lite Meter kit) 4 times a day celecoxib (Celebrex) 200 mg PO DAILY 30 days cholecalciferol (vitamin D3) 125 mcg PO DAILY 90 days cyanocobalamin (vitamin B-12) 1,000 mcg sublingual DAILY fluticasone propion-salmeterol 250-50 mcg/dose (Advair Diskus) 1 ea PO BID ibuprofen 400 mg PO TID PRN insulin degludec (Tresiba FlexTouch U-200 insulin) 80 units (0.4 mL) subcut DAILY lancets (FreeStyle Lancets) 3 times a day lisinopril 5 mg PO DAILY metformin 1,000 mg PO BID 90 days nifedipine ER 30 mg PO DAILY pen needle, diabetic (Comfort EZ Pen [place]) USE DIRECTED repaglinide 2 mg PO TID sertraline 50 mg PO DAILY simvastatin 40 mg PO BEDTIME sitagliptin phosphate (Januvia) 100 mg PO DAILY Tobacco use date assessed: 12/02/23 Fall risk assessment: 1 Fall in past year Last assessed Fall Risk: 12/02/23 HPI Trouble walking/ numb fingers HPI Details Patient is 68-year-old gentleman came in today with his new drum cleaner, as IFRAH, his old drum cleaner Patient have scooter now, he says that in September he was on his scooter when he tripped and fell He was seen in emergency room He was brought to emergency room under section 12 by a local police department as patient was found to be lacking capacity to make decision Patient has a long history of depression, hypertension, diabetes, diabetic neuropathy, COPD, still smoking, elevated lipids, obesity, severe osteoarthritis multiple joint, which limits his mobility along with neuropathy that he has in his feet He continued to smoke and have a smoker's cough He is using Advair inhaler I am not sure how much she is using but it is listed in his medication list He does have a nurse who comes in to give him his medications and insulin His hemoglobin A1c is 7.9 today After evaluation patient was discharged with diagnosis of 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 Patient had a CT scan of head which did not show any bleed He has been taking Motrin through his neighbors which is helping his joint pains He is requesting a refill Labs done in September in emergency room reviewed kidney functions are intact He came in today with his new drum cleaner Lawanda [phone] Patient's phone number changed as well [phone] He is sitting in his scooter today Personal hygiene poor His medication list printed and handed to the drum cleaner [facility], [facility] Medical History Bilateral post-traumatic osteoarthritis of knee Pain in right elbow Depression, major, recurrent Obesity (BMI 30-39.9) Dyslipidemia Hypertension Vitamin D deficiency B12 deficiency Diabetic nephropathy Diabetic polyneuropathy associated with type 2 diabetes mellitus 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 Diabetes type 2, uncontrolled Surgical History History of surgery of head History of back surgery Family History Father Diabetes Mother Alzheimers disease Social History Household Members: None Housing: Apartment Alcohol intake: current Alcohol intake frequency: 0-2 drinks per day Alcohol type: hard liquor Patient Tobacco Use Status: Current everyday Tobacco user Cigarette Packs Per Day: 1 e-Cigarette/Vaping Use: Never Used service: No Current occupational status: unemployed, retired and disabled Cognitive needs: No Hearing needs: No Vision needs: Yes Review of Systems Const Denies chills and Denies fever(s) ENT Denies epistaxis and Denies nasal discharge Card Denies chest pain Resp Denies hemoptysis GI Denies diarrhea and Denies nausea Skin/Breast Denies rash Neuro Reports no additional complaints Psych Reports no additional complaints Endo Reports no additional complaints Physical exam (Primary Care) Vital Signs: Last Vital Signs Pulse 82 12/02/23 08:06 BP 136/74 12/02/23 08:06 Pulse Ox 95 12/02/23 08:06 Oxygen Delivery Method Room Air 12/02/23 08:06 BMI result Body Mass Index 35.1 Tobacco/Smoking Status: Tobacco use Status Tobacco use date assessed 12/02/23 12/02/23 08:14 Patient Tobacco Use Status Current everyday Tobacco 12/02/23 08:14 e-Cigarette/Vaping Use Never Used 12/02/23 08:14 Const General: cooperative, comfortable and no acute distress HENMT Head: Yes normocephalic Resp Effort & Inspection: normal respiratory effort and no stridor Cardio Rhythm: regular rhythm Heart sounds: S1 normal heart sound present and S2 normal heart sound present Skin General skin exam: turgor normal Neuro General: tone normal and moves all extremities Extrem Right lower extremity: no edema Left lower extremity: no edema Results AMB Hemoglobin A1c AMB Hemoglobin A1c 7.9 % Last Edit by Ana Paula Cook CMA on 12/02/23 08: 31 Results Reviewed Results Reviewed: Laboratory Last Values Hgb A1c (Clinic) 7.9 % (4.0-6.0) H 12/02/23 08:26 Assessment and Plan Assessment & Plan (1) [facility] (current) use of insulin: Code(s): Z79.4 - [facility] (current) use of insulin (2) Diabetic polyneuropathy associated with type 2 diabetes mellitus: Code(s): E11.42 - Type 2 diabetes mellitus with diabetic polyneuropathy (3) Diabetic nephropathy: Code(s): E11.21 - Type 2 diabetes mellitus with diabetic nephropathy Qualifiers: Diabetes mellitus type: type 2 Qualified Code(s): E11.21 - Type 2 diabetes mellitus with diabetic nephropathy (4) B12 deficiency: Code(s): E53.8 - Deficiency of other specified B group vitamins (5) Vitamin D deficiency: Code(s): E55.9 - Vitamin D deficiency, unspecified (6) Hypertension: Code(s): I10 - Essential (primary) hypertension Qualifiers: Hypertension type: primary hypertension Qualified Code(s): I10 - Essential (primary) hypertension (7) Dyslipidemia: Code(s): E78.5 - Hyperlipidemia, unspecified (8) Obesity (BMI 30-39.9): Code(s): E66.9 - Obesity, unspecified (9) Depression, major, recurrent: Code(s): F33.9 - Major depressive disorder, recurrent, unspecified Qualifiers: Active/Remission status: in partial remission Qualified Code(s): F33.41 - Major depressive disorder, recurrent, in partial remission (10) Osteoarthritis of knees, bilateral: Code(s): M17.0 - Bilateral primary osteoarthritis of knee Qualifiers: Osteoarthritis type: primary Qualified Code(s): M17.0 - Bilateral primary osteoarthritis of knee (11) Risk for falls: Code(s): Z91.81 - History of falling (12) Moderate dementia associated with alcoholism: Code(s): F10.27 - Alcohol dependence with alcohol-induced persisting dementia Qualifiers: Dementia behavioral or psychological symptom: without behavioral, psychotic, or mood disturbance or anxiety Qualified Code(s): F10.27 - Alcohol dependence with alcohol-induced persisting dementia Plan Patient is 68-year-old gentleman came in today with his new drum cleaner, as IFRAH, his old drum cleaner Patient have scooter now, he says that in September he was on his scooter when he tripped and fell He was seen in emergency room He was brought to emergency room under section 12 by a local police department as patient was found to be lacking capacity to make decision Patient has a long history of depression, hypertension, diabetes, diabetic neuropathy, COPD, still smoking, elevated lipids, obesity, severe osteoarthritis multiple joint, which limits his mobility along with neuropathy that he has in his feet He continued to smoke and have a smoker's cough He is using Advair inhaler I am not sure how much she is using but it is listed in his medication list He does have a nurse who comes in to give him his medications and insulin His hemoglobin A1c is 7.9 today After evaluation patient was discharged with diagnosis of 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 Patient had a CT scan of head which did not show any bleed He has been taking Motrin through his neighbors which is helping his joint pains He is requesting a refill Labs done in September in emergency room reviewed kidney functions are intact He came in today with his new drum cleaner Lawanda [phone] Patient's phone number changed as well [phone] He is sitting in his scooter today Personal hygiene poor His medication list printed and handed to the drum cleaner Orders: Orders AMB Hemoglobin A1c Today E11.65 - Type 2 diabetes mellitus with hyperglycemia Medications: Discontinued celecoxib (Celebrex) Discontinued Reason: Patient Completed Course 200 mg PO DAILY 30 days 30 caps 0RF Coding Level of Care Code Est Pt Level 5 (46442) Diagnoses 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 Z79.4 Diabetic polyneuropathy associated with type 2 diabetes mellitus E11.42 Diabetic nephropathy associated with type 2 diabetes mellitus E11.21 Diabetes mellitus type: type 2 B12 deficiency E53.8 Vitamin D deficiency E55.9 Primary hypertension I10 Hypertension type: primary hypertension Dyslipidemia E78.5 Obesity (BMI 30-39.9) E66.9 Recurrent major depressive disorder, in partial remission F33.41 Active/Remission status: in partial remission Primary osteoarthritis of both knees M17.0 Osteoarthritis type: primary Risk for falls Z91.81 Moderate dementia associated with alcoholism, without behavioral disturbance, psychotic disturbance, mood disturbance, or anxiety F10.27 Dementia behavioral or psychological symptom: without behavioral, psychotic, or mood disturbance or anxiety Time Spent (min) 46 Comment 7 minute pre visit, 33 minute with patient and drum cleaner, 6 minute documentation
== END 2023-12-02 08:37 | disposition home or self-care (01) ==
PROVIDERS: PCP Internal Medicine; Visit Provider Internal Medicine
DX: E11.65 Type 2 diabetes mellitus with hyperglycemia (principal)
CPT/HCPCS: 83036; 99215

== ENCOUNTER 2024-03-09 13:05 | Outpatient (AMB) | payer OTHER, SELFPAY ==
--- NOTE | 2024-03-09 14:07 | A.OFFPC_ITS ---
Vital Signs 03/09/24 14:10 Height 5 ft 8 in Weight 233 lb BMI 35.4 BP 140/80 H Blood Pressure Location Rt brachial Position Sitting Pulse 66 Pulse Source Pulse Oximeter Pulse Oximetry (%) 92 Oxygen Delivery Method Room Air Intake Visit Reasons: 3mth f/u diabetes Allergies No Known Allergies [No Known Allergies*] Allergy (Verified 03/09/24 14:10) Medication List - Last Reconciled 03/09/24 by Toby Pugh MD blood sugar diagnostic (FreeStyle Lite Strips) 3 times a day blood-glucose meter (FreeStyle Lite Meter kit) 4 times a day cholecalciferol (vitamin D3) 125 mcg PO DAILY 90 days cyanocobalamin (vitamin B-12) 1,000 mcg sublingual DAILY fluticasone propion-salmeterol 250-50 mcg/dose (Advair Diskus) 1 ea PO BID ibuprofen 400 mg PO TID PRN insulin degludec (Tresiba FlexTouch U-200 insulin) 80 units (0.4 mL) subcut DAILY lancets (FreeStyle Lancets) 3 times a day lisinopril 5 mg PO DAILY metformin 1,000 mg PO BID 90 days nifedipine ER 30 mg PO DAILY pen needle, diabetic (Comfort EZ Pen Hinkle) USE DIRECTED repaglinide 2 mg PO TID sertraline 50 mg PO DAILY simvastatin 40 mg PO BEDTIME sitagliptin phosphate (Januvia) 100 mg PO DAILY Tobacco use date assessed: 12/02/23 Fall risk assessment: No Falls in past year Last assessed Fall Risk: 03/09/24 HPI 3mth f/u diabetes HPI Details Patient is 68-year-old gentleman came in today with his new cylinder grinder, Lawanda phone number [phone] Patient has a long history of depression, hypertension, diabetes, diabetic neuropathy, COPD, still smoking, elevated lipids, obesity, severe osteoarthritis multiple joint, which limits his mobility along with neuropathy that he has in his feet He continued to smoke and have a smoker's cough He is using Advair inhaler He does have a nurse who comes in to give him his medications and insulin Due for labs He also suffers from 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 and to she by 80 units daily along with repaglinide 2 mg t.i.d. and Januvia 100 mg daily Lipids: Continue simvastatin 40 mg For depression he is on sertraline 50 mg Patient is obese having difficulty losing weight Follow-up 3 months [facility] Medical History Bilateral post-traumatic osteoarthritis of knee Pain in right elbow Depression, major, recurrent Obesity (BMI 30-39.9) Dyslipidemia Hypertension Vitamin D deficiency B12 deficiency Diabetic nephropathy Diabetic polyneuropathy associated with type 2 diabetes mellitus custodial (current) use of insulin Diabetes type 2, uncontrolled Surgical History History of surgery of head History of back surgery Family History Father Diabetes Mother Alzheimers disease Social History Household Members: None Housing: Apartment Alcohol intake: current Alcohol intake frequency: 0-2 drinks per day Alcohol type: hard liquor Patient Tobacco Use Status: Current everyday Tobacco user Cigarette Packs Per Day: 1 e-Cigarette/Vaping Use: Never Used service: No Current occupational status: unemployed, retired and disabled Cognitive needs: No Hearing needs: No Vision needs: Yes Questionnaire PHQ-9 Over the last 2 weeks, how often have you been bothered by any of the following problems? 1. Little interest or pleasure in doing things: more than half the days 2. Feeling down, depressed, or hopeless: several days 3. Trouble falling or staying asleep, or sleeping too much: more than half the days 4. Feeling tired or having little energy: more than half the days 5. Poor appetite or overeating: more than half the days 6. Feeling bad about yourself - or that you are a failure or have let yourself or your family down: several days 7. Trouble concentrating on things, such as reading the newspaper or watching television: more than half the days 8. Moving or speaking so slowly that other people could have noticed. Or the opposite - being so fidgety or restless that you have been moving around a lot more than usual: not at all 9. Thoughts that you would be better off or of hurting yourself in some way: not at all Total score: 12 Depression Screening Interpretation: Positive Depression Screening Follow-up: Existing condition and In treatment Depression Screening Done: Yes 91149 - PHQ-9 Billing: Yes Source: Developed by Drs. Clark Ledezma, Ellie Marie, Alfred Tenorio and colleagues, with an educational alexis from [employer]. Review of Systems Const Denies chills and Denies fever(s) ENT Denies epistaxis and Denies nasal discharge Card Denies chest pain Resp Denies hemoptysis GI Denies diarrhea and Denies nausea Skin/Breast Denies rash Neuro Reports no additional complaints Psych Reports no additional complaints Endo Reports no additional complaints Physical exam (Primary Care) Vital Signs: Last Vital Signs Pulse 66 03/09/24 14:10 BP 140/80 H 03/09/24 14:10 Pulse Ox 92 03/09/24 14:10 Oxygen Delivery Method Room Air 03/09/24 14:10 BMI result Body Mass Index 35.4 Tobacco/Smoking Status: Tobacco use Status Tobacco use date assessed 12/02/23 03/09/24 14:08 Patient Tobacco Use Status Current everyday Tobacco 03/09/24 14:08 e-Cigarette/Vaping Use Never Used 03/09/24 14:08 Depression Screening Interpretation: Positive Depression Screening Follow-up: Existing condition and In treatment Const General: cooperative, comfortable and no acute distress Orientation/consciousness: patient oriented x3 HENMT Head: Yes normocephalic Eyes General: appearance normal, both eyes and all related structures Resp Effort & Inspection: normal respiratory effort, no cough and no stridor Cardio Rhythm: regular rhythm Heart sounds: S1 normal heart sound present and S2 normal heart sound present Skin General skin exam: turgor normal Neuro General: patient oriented x3, tone normal and moves all extremities Assessment and Plan Assessment & Plan (1) long term care phlebotomist (current) use of insulin: Code(s): Z79.4 - long term care phlebotomist (current) use of insulin (2) Diabetic polyneuropathy associated with type 2 diabetes mellitus: Code(s): E11.42 - Type 2 diabetes mellitus with diabetic polyneuropathy (3) Diabetic nephropathy: Code(s): E11.21 - Type 2 diabetes mellitus with diabetic nephropathy Qualifiers: Diabetes mellitus type: type 2 Qualified Code(s): E11.21 - Type 2 diabetes mellitus with diabetic nephropathy (4) B12 deficiency: Code(s): E53.8 - Deficiency of other specified B group vitamins (5) Vitamin D deficiency: Code(s): E55.9 - Vitamin D deficiency, unspecified (6) Hypertension: Code(s): I10 - Essential (primary) hypertension Qualifiers: Hypertension type: primary hypertension Qualified Code(s): I10 - Essential (primary) hypertension (7) Obesity (BMI 30-39.9): Code(s): E66.9 - Obesity, unspecified (8) Depression, major, recurrent: Code(s): F33.9 - Major depressive disorder, recurrent, unspecified Qualifiers: Active/Remission status: in partial remission Qualified Code(s): F33.41 - Major depressive disorder, recurrent, in partial remission (9) Dyslipidemia: Code(s): E78.5 - Hyperlipidemia, unspecified (10) Osteoarthritis of knees, bilateral: Code(s): M17.0 - Bilateral primary osteoarthritis of knee Qualifiers: Osteoarthritis type: primary Qualified Code(s): M17.0 - Bilateral primary osteoarthritis of knee (11) Moderate dementia associated with alcoholism: Code(s): F10.27 - Alcohol dependence with alcohol-induced persisting dementia Qualifiers: Dementia behavioral or psychological symptom: without behavioral, psychotic, or mood disturbance or anxiety Qualified Code(s): F10.27 - Alcohol dependence with alcohol-induced persisting dementia (12) Diabetes mellitus: Code(s): E11.9 - Type 2 diabetes mellitus without complications Qualifiers: Diabetes mellitus complication detail: with polyneuropathy Diabetes mellitus complication status: with neurologic complications Diabetes mellitus terminal superintendent insulin use: with [facility] use Diabetes mellitus type: type 2 Qualified Code(s): E11.42 - Type 2 diabetes mellitus with diabetic polyneuropathy; Z79.4 - custodial (current) use of insulin (13) Risk for falls: Code(s): Z91.81 - History of falling Plan Patient is 68-year-old gentleman came in today with his new cylinder grinder, Lawanda phone number [phone] Patient has a long history of depression, hypertension, diabetes, diabetic neuropathy, COPD, still smoking, elevated lipids, obesity, severe osteoarthritis multiple joint, which limits his mobility along with neuropathy that he has in his feet He continued to smoke and have a smoker's cough He is using Advair inhaler He does have a nurse who comes in to give him his medications and insulin Due for labs He also suffers from 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 and to she by 80 units daily along with repaglinide 2 mg t.i.d. and Januvia 100 mg daily Lipids: Continue simvastatin 40 mg For depression he is on sertraline 50 mg Patient is obese having difficulty losing weight Follow-up 3 months Need ophthalmology and podiatry referrals Orders: Orders Complete Blood Count Auto Diff Today E11.21 - Type 2 diabetes mellitus with diabetic nephropathy, E11.42 - Type 2 diabetes mellitus with diabetic polyneuropathy, E53.8 - Deficiency of other specified B group vitamins, E55.9 - Vitamin D deficiency, unspecified, E66.9 - Obesity, unspecified, E78.5 - Hyperlipidemia, unspecified, F10.27 - Alcohol dependence with alcohol-induced persisting dementia, F33.41 - Major depressive disorder, recurrent, in partial remission, I10 - Essential (primary) hypertension, M17.0 - Bilateral primary osteoarthritis of knee, Z79.4 - custodial (current) use of insulin Comprehensive Met. Panel Today E11.21 - Type 2 diabetes mellitus with diabetic nephropathy, E11.42 - Type 2 diabetes mellitus with diabetic polyneuropathy, E53.8 - Deficiency of other specified B group vitamins, E55.9 - Vitamin D deficiency, unspecified, E66.9 - Obesity, unspecified, E78.5 - Hyperlipidemia, unspecified, F10.27 - Alcohol dependence with alcohol-induced persisting dementia, F33.41 - Major depressive disorder, recurrent, in partial remission, I10 - Essential (primary) hypertension, M17.0 - Bilateral primary osteoarthritis of knee, Z79.4 - long term care phlebotomist (current) use of insulin TSH reflex Free T4 Today E11.21 - Type 2 diabetes mellitus with diabetic nep hropathy, E11.42 - Type 2 diabetes mellitus with diabetic polyneuropathy, E53.8 - Deficiency of other specified B group vitamins, E55.9 - Vitamin D deficiency, unspecified, E66.9 - Obesity, unspecified, E78.5 - Hyperlipidemia, unspecified, F10.27 - Alcohol dependence with alcohol-induced persisting dementia, F33.41 - Major depressive disorder, recurrent, in partial remission, I10 - Essential (primary) hypertension, M17.0 - Bilateral primary osteoarthritis of knee, Z79.4 - long term care phlebotomist (current) use of insulin Microalbumin, Random (w Creat) Today E11.21 - Type 2 diabetes mellitus with diabetic nephropathy, E11.42 - Type 2 diabetes mellitus with diabetic polyneuropathy, E53.8 - Deficiency of other specified B group vitamins, E55.9 - Vitamin D deficiency, unspecified, E66.9 - Obesity, unspecified, E78.5 - Hyperlipidemia, unspecified, F10.27 - Alcohol dependence with alcohol-induced persisting dementia, F33.41 - Major depressive disorder, recurrent, in partial remission, I10 - Essential (primary) hypertension, M17.0 - Bilateral primary osteoarthritis of knee, Z79.4 - long term care phlebotomist (current) use of insulin Hemoglobin A1c Today E11.21 - Type 2 diabetes mellitus with diabetic nephropathy, E11.42 - Type 2 diabetes mellitus with diabetic polyneuropathy, E53.8 - Deficiency of other specified B group vitamins, E55.9 - Vitamin D deficiency, unspecified, E66.9 - Obesity, unspecified, E78.5 - Hyperlipidemia, unspecified, F10.27 - Alcohol dependence with alcohol-induced persisting dementia, F33.41 - Major depressive disorder, recurrent, in partial remission, I10 - Essential (primary) hypertension, M17.0 - Bilateral primary osteoarthritis of knee, Z79.4 - long term care phlebotomist (current) use of insulin LDL Cholesterol Direct Today E11.21 - Type 2 diabetes mellitus with diabetic nephropathy, E11.42 - Type 2 diabetes mellitus with diabetic polyneuropathy, E53.8 - Deficiency of other specified B group vitamins, E55.9 - Vitamin D deficiency, unspecified, E66.9 - Obesity, unspecified, E78.5 - Hyperlipidemia, unspecified, F10.27 - Alcohol dependence with alcohol-induced persisting dementia, F33.41 - Major depressive disorder, recurrent, in partial remission, I10 - Essential (primary) hypertension, M17.0 - Bilateral primary osteoarthritis of knee, Z79.4 - custodial (current) use of insulin Vitamin D 25-OH (D2 and D3) Today E11.21 - Type 2 diabetes mellitus with diabetic nephropathy, E11.42 - Type 2 diabetes mellitus with diabetic polyneuropathy, E53.8 - Deficiency of other specified B group vitamins, E55.9 - Vitamin D deficiency, unspecified, E66.9 - Obesity, unspecified, E78.5 - Hyperlipidemia, unspecified, F10.27 - Alcohol dependence with alcohol-induced persisting dementia, F33.41 - Major depressive disorder, recurrent, in partial remission, I10 - Essential (primary) hypertension, M17.0 - Bilateral primary osteoarthritis of knee, Z79.4 - long term care phlebotomist (current) use of insulin Vitamin B12 Today E11.21 - Type 2 diabetes mellitus with diabetic nephropathy, E11.42 - Type 2 diabetes mellitus with diabetic polyneuropathy, E53.8 - Deficiency of other specified B group vitamins, E55.9 - Vitamin D deficiency, unspecified, E66.9 - Obesity, unspecified, E78.5 - Hyperlipidemia, unspecified, F10.27 - Alcohol dependence with alcohol-induced persisting dementia, F33.41 - Major depressive disorder, recurrent, in partial remission, I10 - Essential (primary) hypertension, M17.0 - Bilateral primary osteoarthritis of knee, Z79.4 - custodial (current) use of insulin Referrals Podiatry Referral E11.9 - Type 2 diabetes mellitus without complications Ophthalmology Referral E11.9 - Type 2 diabetes mellitus without complications Medications: New acetaminophen ER (Tylenol Arthritis Pain) 650 mg PO Q12H 180 tabs 0RF pain 90 days naproxen 500 mg PO BID 180 tabs 0RF pain 90 days Discontinued ibuprofen Discontinued Reason: Doctor's Order 400 mg PO TID PRN 30 tabs 0RF fever or pain Coding Level of Care Code Est Pt Level 4 (85684) Complex EM visit Add On G2211 Diagnoses long term care phlebotomist (current) use of insulin Z79.4 Diabetic polyneuropathy associated with type 2 diabetes mellitus E11.42 Diabetic nephropathy associated with type 2 diabetes mellitus E11.21 Diabetes mellitus type: type 2 B12 deficiency E53.8 Vitamin D deficiency E55.9 Primary hypertension I10 Hypertension type: primary hypertension Obesity (BMI 30-39.9) E66.9 Recurrent major depressive disorder, in partial remission F33.41 Active/Remission status: in partial remission Dyslipidemia E78.5 Primary osteoarthritis of both knees M17.0 Osteoarthritis type: primary Moderate dementia associated with alcoholism, without behavioral disturbance, psychotic disturbance, mood disturbance, or anxiety F10.27 Dementia behavioral or psychological symptom: without behavioral, psychotic, or mood disturbance or anxiety Type 2 diabetes mellitus with diabetic polyneuropathy, with long-term current use of insulin E11.42; Z79.4 Diabetes mellitus complication detail: with polyneuropathy Diabetes mellitus complication status: with neurologic complications Diabetes mellitus [facility] insulin use: with terminal superintendent use Diabetes mellitus type: type 2 Risk for falls Z91.81
[2024-03-09 14:10] VITALS: BP 140/80; PULSE 66; O2SAT 92; BMI 35.4
== END 2024-03-09 16:13 | disposition home or self-care (01) ==
PROVIDERS: PCP Internal Medicine; Visit Provider Internal Medicine
DX: E11.42 Type 2 diabetes mellitus with diabetic polyneuropathy (principal); E11.21 Type 2 diabetes mellitus with diabetic nephropathy; Z79.4 Long term (current) use of insulin; F33.41 Major depressive disorder, recurrent, in partial remission; F10.27 Alcohol dependence with alcohol-induced persisting dementia; E53.8 Deficiency of other specified B group vitamins; E55.9 Vitamin D deficiency, unspecified; I10 Essential (primary) hypertension; E66.9 Obesity, unspecified; E78.5 Hyperlipidemia, unspecified; M17.0 Bilateral primary osteoarthritis of knee; Z91.81 History of falling
CPT/HCPCS: 99214; G2211

== ENCOUNTER 2024-03-09 14:26 | Outpatient (REF) | payer OTHER, SELFPAY ==
[2024-03-09 16:03] LABS: MANUAL DIFF FLAG NO
[2024-03-09 16:29] LABS: Basophils Percent Auto 0.3 % (0-2); Eosinophils Absolute Auto 0.2 X10*3/uL (0.0-0.4); Eosinophils Percent Auto 1.8 % (0-4); Hematocrit 43.8 % (42.0-52.0); Hemoglobin 14.6 g/dl (14.0-18.0); Imm Gran Abs Auto 0.04 X10*3/uL (0.00-0.03); Imm Gran Pct Auto 0.4 % (0.0-0.4); Lymphocytes Absolute Auto 1.6 X10*3/uL (1.2-4.9); Lymphocytes Percent Auto 17.6 % (20-40); Mean Corpuscular HGB Conc 33.3 g/dl (31.0-36.0); Mean Corpuscular Hemoglobin 28.9 pg (27.0-33.0); Mean Corpuscular Volume 86.7 fL (80.0-98.0); Mean Platelet Volume 9.8 fL (9.4-12.4); Monocytes Absolute Auto 0.7 X10*3/uL (0.1-1.2); Monocytes Percent Auto 7.1 % (2-11); Neutrophils Absolute Auto 6.8 x10*3/uL (2.0-8.3); Neutrophils Percent Auto 72.8 % (45-73); Platelet Count 320 X10*3/uL (160-400); Red Blood Count 5.05 X10*6/uL (4.60-5.80); Red Cell Distribution Width 14.3 % (11.0-16.0); White Blood Count 9.3 X10*3/uL (4.8-10.8)
[2024-03-09 16:45] LABS: Estimated Average Glucose 166 mg/dL; Hemoglobin A1c % 7.4 % (<6.0)
[2024-03-09 16:47] LABS: Alanine Aminotransferase 16 U/L (0-40); Alkaline Phosphatase 87 U/L (39-117); Anion Gap 12 (12-20); Aspartate Amino Transferase 18 U/L (5-37); Bilirubin Total 0.2 mg/dL (0.0-1.0); Blood Urea Nitrogen 11 mg/dL (9-16); Calcium 9.8 mg/dL (8.4-10.2); Carbon Dioxide 27 mmol/L (22-29); Chloride 105 mmol/L (96-108); Estimated Glomerular Filt Rate > 60; Glucose Random 104 mg/dL (60-115); Potassium 4.1 mmol/L (3.3-5.1); Sodium 140 mmol/L (135-145); Total Protein 7.5 g/dL (6.5-8.0)
[2024-03-09 17:02] LABS: Vitamin B12 352 pg/mL (200-900)
[2024-03-09 17:06] LABS: TSH reflex Free T4 2.72 uIU/mL (0.32-4.0)
[2024-03-10 11:09] LABS: LDL Cholesterol Direct 115 mg/dL (<100)
[2024-03-13 16:53] LABS: Vitamin D 25-OH, D2 <4 ng/mL; Vitamin D 25-OH, D3 15 ng/mL; Vitamin D 25-OH, Total 15 ng/mL (30-100)
== END 2024-03-09 14:27 | disposition home or self-care (01) ==
LOC: HO.HMGCLDS 14:26
PROVIDERS: PCP Internal Medicine; Visit Provider Internal Medicine
DX: E11.42 Type 2 diabetes mellitus with diabetic polyneuropathy (principal); E53.8 Deficiency of other specified B group vitamins; E55.9 Vitamin D deficiency, unspecified; E66.9 Obesity, unspecified; F33.41 Major depressive disorder, recurrent, in partial remission; I10 Essential (primary) hypertension; E78.5 Hyperlipidemia, unspecified; M17.0 Bilateral primary osteoarthritis of knee; F10.27 Alcohol dependence with alcohol-induced persisting dementia; E11.21 Type 2 diabetes mellitus with diabetic nephropathy; Z79.4 Long term (current) use of insulin
CPT/HCPCS: 36415; 80053; 82306; 82607; 83036; 83721; 84443; 85025

== ENCOUNTER 2024-06-08 12:27 | Outpatient (AMB) | payer OTHER, SELFPAY ==
[2024-06-08 12:37] VITALS: BP 130/84; PULSE 78; O2SAT 98; BMI 35.0
--- NOTE | 2024-06-08 12:37 | MHC.PC.OV ---
Vital Signs 06/08/24 12:37 Height 5 ft 8 in Weight 230 lb 8 oz BMI 35.0 BP 130/84 Blood Pressure Location Lt brachial Position Sitting Pulse 78 Pulse Source Pulse Oximeter Pulse Oximetry (%) 98 Oxygen Delivery Method Room Air Intake Visit Reasons: 3M F/u~ [phone] Allergies No Known Allergies [No Known Allergies*] Allergy (Verified 06/08/24 12:43) Medication List - Last Reconciled 06/08/24 by Toby Pugh MD acetaminophen ER (Tylenol Arthritis Pain) 650 mg PO Q12H 90 days blood sugar diagnostic (FreeStyle Lite Strips) 3 times a day blood-glucose meter (FreeStyle Lite Meter kit) 4 times a day cholecalciferol (vitamin D3) 125 mcg PO DAILY 90 days cyanocobalamin (vitamin B-12) 1,000 mcg sublingual DAILY fluticasone propion-salmeterol 250-50 mcg/dose (Advair Diskus) 1 ea PO BID insulin degludec (Tresiba FlexTouch U-200 insulin) 80 units (0.4 mL) subcut DAILY lancets (FreeStyle Lancets) 3 times a day lisinopril 5 mg PO DAILY metformin 1,000 mg PO BID 90 days naproxen 500 mg PO BID 90 days nifedipine ER 30 mg PO DAILY pen needle, diabetic (Comfort EZ [place]) USE DIRECTED repaglinide 2 mg PO TID sertraline 50 mg PO DAILY simvastatin 40 mg PO BEDTIME sitagliptin phosphate (Januvia) 100 mg PO DAILY Tobacco use date assessed: 06/08/24 Fall risk assessment: 2 + Falls in past year Last assessed Fall Risk: 06/08/24 Dental Screening Dental Screen Date: 06/08/24 Did you have a dental visit in the last 12 months?: No Did you have a dental problem in the last 6 months where you did not have access to dental care?: No Was dental information given to patient?: No HPI 3M F/u~ [phone] HPI Details Patient is 69-year-old gentleman came in today with 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 new 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, Lawanda phone number [phone] Patient has a long history of depression, hypertension, diabetes, diabetic neuropathy, COPD, still smoking, elevated lipids, obesity, severe osteoarthritis multiple joint, which limits his mobility along with neuropathy that he has in his feet He continued to smoke and have a smoker's cough He is using Advair inhaler , but I am not sure if he is doing it regularly and appropriately He does have a nurse who comes in to give him his medications and insulin He also suffers from 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 and to she by 80 units daily along with repaglinide 2 mg t.i.d. and Januvia 100 mg daily Hemoglobin A1c 7.0 today Lipids: Continue simvastatin 40 mg For depression he is on sertraline 50 mg Patient is obese having difficulty losing weight Follow-up 3 months [facility] Medical History Bilateral post-traumatic osteoarthritis of knee Pain in right elbow Depression, major, recurrent Obesity (BMI 30-39.9) Dyslipidemia Hypertension Vitamin D deficiency B12 deficiency Diabetic nephropathy Diabetic polyneuropathy associated with type 2 diabetes mellitus [facility] (current) use of insulin Diabetes type 2, uncontrolled Surgical History History of surgery of head History of back surgery Family History Father Diabetes Mother Alzheimers disease Social History Household Members: None Housing: Apartment Alcohol intake: current Alcohol intake frequency: 0-2 drinks per day Alcohol type: hard liquor Patient Tobacco Use Status: Current everyday Tobacco user Cigarette Packs Per Day: 1 e-Cigarette/Vaping Use: Never Used service: No Current occupational status: unemployed, retired and disabled Cognitive needs: No Hearing needs: No Vision needs: Yes Questionnaire PHQ-9 Over the last 2 weeks, how often have you been bothered by any of the following problems? 1. Little interest or pleasure in doing things: more than half the days 2. Feeling down, depressed, or hopeless: several days 3. Trouble falling or staying asleep, or sleeping too much: several days 4. Feeling tired or having little energy: several days 5. Poor appetite or overeating: more than half the days 6. Feeling bad about yourself - or that you are a failure or have let yourself or your family down: not at all 7. Trouble concentrating on things, such as reading the newspaper or watching television: not at all 8. Moving or speaking so slowly that other people could have noticed. Or the opposite - being so fidgety or restless that you have been moving around a lot more than usual: not at all 9. Thoughts that you would be better off or of hurting yourself in some way: not at all Total score: 7 Depression Screening Interpretation: Negative Depression Screening Done: Yes 07064 - PHQ-9 Billing: Yes Source: Developed by Drs. Clark Ledezma, Ellie Marie, Alfred Tenorio and colleagues, with an educational alexis from [employer]. Thrive Questionnaire Date Thrive assessed: 06/08/24 I am a: Patient What is your living situation today?: I have a steady place to live Within the past 12 months, did the food you bought not last and you didn't have the money to get more?: Never true Within the past 12 months, did you worry whether your food would run out before you got money to buy more?: Never true Do you have trouble paying for medicines?: No Do you have trouble getting transportation to medical appointments?: No Do you have trouble paying your heating and electricity bill?: No Do you have trouble taking care of your child, family member or friend?: No Do you have trouble with day-to-day activities such as bathing, preparing meals, shopping, managing finances, etc.?: No Are you currently unemployed and looking for a job?: No Are you interested in more education?: No Please select the resources that you would like help with: None Currently or been in a relationship where the following occur: No concerns reported THRIVE Score: 0 AUDIT C Alcohol Use Questionnaire (AUDIT-C) 1. How often do you have a drink containing alcohol?: Never 3. How often do you have six or more drinks on one occasion?: Never Total Score: 0 Score Reviewed/Action Taken: Yes AMBAR-7 AMB Questionnaire AMBAR-7 Date AMBAR - 7 assessed: 06/08/24 Feeling nervous, anxious, or on edge: 0 = Not at all Not being able to stop or control worryin = Not at all Worrying too much about different things: 0 = Not at all Trouble relaxin = Not at all Being so restless that it is hard to sit still: 0 = Not at all Becoming easily annoyed or irritable: 0 = Not at all Feeling afraid as if something awful might happen: 0 = Not at all Total AMBAR-7 score (0-4 normal; 5-9 mild; 10-14 moderate; 15-21 severe): 0 Source: Developed by Drs. Clark Ledezma, Ellie Marie, Alfred Tenorio and colleagues, with an educational alexis from [employer]. AMBAR-7 Assessment Billing AMBAR-7 Assessment Tool: AMBAR-7 Assessment 25065 Review of Systems Const Denies chills and Denies fever(s) ENT Denies epistaxis and Denies nasal discharge Card Denies chest pain Resp Denies hemoptysis GI Denies diarrhea and Denies nausea Skin/Breast Denies rash Neuro Reports no additional complaints Psych Reports no additional complaints Endo Reports no additional complaints Physical exam (Primary Care) Vital Signs: Last Vital Signs Pulse 78 06/08/24 12:37 BP 130/84 06/08/24 12:37 Pulse Ox 98 06/08/24 12:37 Oxygen Delivery Method Room Air 06/08/24 12:37 BMI result Body Mass Index 35.0 Tobacco/Smoking Status: Tobacco use Status Tobacco use date assessed 06/08/24 06/08/24 12:44 Patient Tobacco Use Status Current everyday Tobacco 06/08/24 12:39 e-Cigarette/Vaping Use Never Used 06/08/24 12:39 PHQ-9: PHQ-9 Score PHQ-9: Total score 7 06/08/24 12:48 Depression Screening Interpretation: Negative Thrive Assessment: Date of Thrive Assessment Date Thrive assessed 06/08/24 06/08/24 12:44 Currently or been in a relationship where the following occur: No concerns reported Const General: cooperative, comfortable and no acute distress Orientation/consciousness: patient oriented x3 HENMT Head: Yes normocephalic Eyes General: appearance normal, both eyes and all related structures Neck Neck: Yes supple Resp Effort & Inspection: normal respiratory effort, no cough and no stridor Cardio Rhythm: regular rhythm Heart sounds: S1 normal heart sound present and S2 normal heart sound present Skin General skin exam: turgor normal Neuro General: patient oriented x3, tone normal and moves all extremities Assessment and Plan Assessment & Plan (1) Diabetes mellitus: Code(s): E11.9 - Type 2 diabetes mellitus without complications Qualifiers: Diabetes mellitus complication detail: with polyneuropathy Diabetes mellitus complication status: with neurologic complications Diabetes mellitus fpc insulin use: with machine long goods helper use Diabetes mellitus type: type 2 Qualified Code(s): E11.42 - Type 2 diabetes mellitus with diabetic polyneuropathy; Z79.4 - terminal press operator (current) use of insulin (2) [facility] (current) use of insulin: Code(s): Z79.4 - terminal press operator (current) use of insulin (3) Diabetic polyneuropathy associated with type 2 diabetes mellitus: Code(s): E11.42 - Type 2 diabetes mellitus with diabetic polyneuropathy (4) Osteoarthritis of knees, bilateral: Code(s): M17.0 - Bilateral primary osteoarthritis of knee Qualifiers: Osteoarthritis type: primary Qualified Code(s): M17.0 - Bilateral primary osteoarthritis of knee (5) Moderate dementia associated with alcoholism: Code(s): F10.27 - Alcohol dependence with alcohol-induced persisting dementia Qualifiers: Dementia behavioral or psychological symptom: without behavioral, psychotic, or mood disturbance or anxiety Qualified Code(s): F10.27 - Alcohol dependence with alcohol-induced persisting dementia (6) Diabetic nephropathy: Code(s): E11.21 - Type 2 diabetes mellitus with diabetic nephropathy Qualifiers: Diabetes mellitus type: type 2 Qualified Code(s): E11.21 - Type 2 diabetes mellitus with diabetic nephropathy (7) B12 deficiency: Code(s): E53.8 - Deficiency of other specified B group vitamins (8) Vitamin D deficiency: Code(s): E55.9 - Vitamin D deficiency, unspecified (9) Hypertension: Code(s): I10 - Essential (primary) hypertension Qualifiers: Hypertension type: primary hypertension Qualified Code(s): I10 - Essential (primary) hypertension (10) Depression, major, recurrent: Code(s): F33.9 - Major depressive disorder, recurrent, unspecified Qualifiers: Active/Remission status: in partial remission Qualified Code(s): F33.41 - Major depressive disorder, recurrent, in partial remission (11) Dyslipidemia: Code(s): E78.5 - Hyperlipidemia, unspecified (12) Risk for falls: Code(s): Z91.81 - History of falling (13) Obesity (BMI 30-39.9): Code(s): E66.9 - Obesity, unspecified (14) Diabetes type 2, uncontrolled: Code(s): E11.65 - Type 2 diabetes mellitus with hyperglycemia (15) Immobility: Code(s): Z74.09 - Other reduced mobility Plan Patient is 69-year-old gentleman came in today with his new 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, Lawanda phone number [phone] Patient has a long history of depression, hypertension, diabetes, diabetic neuropathy, COPD, still smoking, elevated lipids, obesity, severe osteoarthritis multiple joint, which limits his mobility along with neuropathy that he has in his feet He continued to smoke and have a smoker's cough He is using Advair inhaler , but I am not sure if he is doing it regularly and appropriately He does have a nurse who comes in to give him his medications and insulin He also suffers from 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 and to she by 80 units daily along with repaglinide 2 mg t.i.d. and Januvia 100 mg daily Hemoglobin A1c 7.0 today Lipids: Continue simvastatin 40 mg For depression he is on sertraline 50 mg Patient is obese having difficulty losing weight Follow-up 3 months Orders: Referrals Physical Medicine and Rehabilitation Referral Z74.09 - Other reduced mobility Ophthalmology Referral E11.65 - Type 2 diabetes mellitus with hyperglycemia Coding Level of Care Code Est Pt Level 4 (88346) Complex EM visit Add On G2211 Diagnoses Type 2 diabetes mellitus with diabetic polyneuropathy, with long-term current use of insulin E11.42; Z79.4 Diabetes mellitus complication detail: with polyneuropathy Diabetes mellitus complication status: with neurologic complications Diabetes mellitus machine long goods helper insulin use: with fpc use Diabetes mellitus type: type 2 terminal press operator (current) use of insulin Z79.4 Diabetic polyneuropathy associated with type 2 diabetes mellitus E11.42 Primary osteoarthritis of both knees M17.0 Osteoarthritis type: primary Moderate dementia associated with alcoholism, without behavioral disturbance, psychotic disturbance, mood disturbance, or anxiety F10.27 Dementia behavioral or psychological symptom: without behavioral, psychotic, or mood disturbance or anxiety Diabetic nephropathy associated with type 2 diabetes mellitus E11.21 Diabetes mellitus type: type 2 B12 deficiency E53.8 Vitamin D deficiency E55.9 Primary hypertension I10 Hypertension type: primary hypertension Recurrent major depressive disorder, in partial remission F33.41 Active/Remission status: in partial remission Dyslipidemia E78.5 Risk for falls Z91.81 Obesity (BMI 30-39.9) E66.9 Diabetes type 2, uncontrolled E11.65 Immobility Z74.09 Additional Codes AMBAR-7 Assessment Billing - AMBAR-7 Assessment Tool: AMBAR-7 Assessment 60946 ([id number])
== END 2024-06-08 13:05 | disposition home or self-care (01) ==
PROVIDERS: PCP Internal Medicine; Visit Provider Internal Medicine
DX: E11.42 Type 2 diabetes mellitus with diabetic polyneuropathy (principal); Z79.4 Long term (current) use of insulin; M17.0 Bilateral primary osteoarthritis of knee; F10.27 Alcohol dependence with alcohol-induced persisting dementia; E11.21 Type 2 diabetes mellitus with diabetic nephropathy; E53.8 Deficiency of other specified B group vitamins; E55.9 Vitamin D deficiency, unspecified; I10 Essential (primary) hypertension; F33.41 Major depressive disorder, recurrent, in partial remission; E78.5 Hyperlipidemia, unspecified; Z91.81 History of falling; E11.65 Type 2 diabetes mellitus with hyperglycemia; E66.9 Obesity, unspecified; Z74.09 Other reduced mobility
CPT/HCPCS: 83036; 96127; 99214; G2211

== ENCOUNTER 2024-11-09 08:46 | Outpatient (AMB) | payer OTHER, SELFPAY ==
[2024-11-09 09:04] VITALS: BP 140/82; PULSE 85; O2SAT 95
--- NOTE | 2024-11-09 09:04 | MHC.PC.OV ---
Vital Signs 11/09/24 09:04 Height 5 ft 8 in BP 140/82 H Blood Pressure Location Rt brachial Position Sitting Pulse 85 Pulse Source Pulse Oximeter Pulse Oximetry (%) 95 Oxygen Delivery Method Room Air Intake Visit Reasons: DM, B12 Allergies No Known Allergies [No Known Allergies*] Allergy (Verified 11/09/24 09:07) Medication List - Last Reconciled 11/09/24 by Toby Pugh MD acetaminophen ER (Tylenol Arthritis Pain) 650 mg PO Q12H 90 days blood sugar diagnostic (FreeStyle Lite Strips) 3 times a day blood-glucose meter (FreeStyle Lite Meter kit) 4 times a day cholecalciferol (vitamin D3) 125 mcg PO DAILY 90 days cyanocobalamin (vitamin B-12) 1,000 mcg sublingual DAILY fluticasone propion-salmeterol 250-50 mcg/dose (Advair Diskus) 1 ea PO BID insulin degludec (Tresiba FlexTouch U-200 insulin) 80 units (0.4 mL) subcut DAILY lancets (FreeStyle Lancets) 3 times a day lisinopril 5 mg PO DAILY metformin 1,000 mg PO BID 90 days naproxen 500 mg PO BID 90 days nifedipine ER 30 mg PO DAILY pen needle, diabetic (Comfort EZ Pen Sunman) USE DIRECTED repaglinide 2 mg PO TID sertraline 100 mg PO DAILY simvastatin 40 mg PO BEDTIME sitagliptin phosphate (Januvia) 100 mg PO DAILY Tobacco use date assessed: 11/09/24 Dental Screening Dental Screen Date: 06/08/24 HPI DM, B12 HPI Details - The patient is a 69-year-old male presenting with routine evaluation and management of diabetes mellitus type , patient also have history of hypertension, severe COPD, severe osteoarthritis bilateral knee, scooter dependent for mobility, obesity, diabetic neuropathy, depression and anxiety, lipid disorder . Last lab test dated February of last year; new set of lab order placed - Cough: Persistent chronic cough noted, worsened by environmental factors such as smoke. No current production of phlegm. Associated wheezing observed. Continued to smoke - COPD: Wheezing noted, particularly on the right side, with questioning of inhaler usage. Which patient is not using regularly - Hyperlipidemia: Elevated LDL at 150 mg/dL as noted in previous labs. Current management includes statins. - Vitamin D deficiency: Last labs showed slightly reduced vitamin D levels; continue supplement - History of missed podiatry appointments noted; new referral placed Also due for eye exam ophthalmology referral placed Scooter dependent for mobility Medications - Long-acting insulin, 80 units daily - Metformin 1 mg, two times daily for diabetes management - Sitagliptin 100 mg daily for diabetes management - Sertraline 100 mg daily - Nifedipine 30 mg daily for hypertension - Repaglinide 2 mg three times daily for diabetes management - Pravastatin 40 mg at bedtime for hyperlipidemia Problem List - Diabetes Mellitus type 2 with elevated hemoglobin A1c - Hyperlipidemia with elevated LDL - Vitamin D deficiency - Chronic cough secondary to COPD and smoking - Wheezing - History of missed podiatry appointment - due for ophthalmology appointment - obesity - hygiene issue Diagnostic results - Labs: - Hemoglobin A1c 7.4 - LDL 150 mg/dL - Normal kidney function - Liver enzymes within normal limits - Thyroid within normal limits - Vitamin D level slightly below normal threshold Patient Instructions - Schedule and attend routine laboratory tests as suggested - Schedule a chest X-ray - Begin or resume use of the prescribed inhaler for management of wheezing and cough - Schedule and attend podiatry and eye appointments as needed Review of Systems - Respiratory: Reports chronic cough, denies sputum production; wheezing noted on physical exam, especially on the right side. 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 awake oriented x3 motor sensory intact skin: Normal turgor PFSH Medical History Bilateral post-traumatic osteoarthritis of knee Pain in right elbow Depression, major, recurrent Obesity (BMI 30-39.9) Dyslipidemia Hypertension Vitamin D deficiency B12 deficiency Diabetic nephropathy Diabetic polyneuropathy associated with type 2 diabetes mellitus long-term (current) use of insulin Diabetes type 2, uncontrolled Surgical History History of surgery of head History of back surgery Family History Father Diabetes Mother Alzheimers disease Social History Household Members: None Housing: Apartment Alcohol intake: current Alcohol intake frequency: 0-2 drinks per day Alcohol type: hard liquor Patient Tobacco Use Status: Current everyday Tobacco user Cigarette Packs Per Day: 1 e-Cigarette/Vaping Use: Never Used service: No Current occupational status: unemployed, retired and disabled Cognitive needs: No Hearing needs: No Vision needs: Yes Questionnaire PHQ-9 Over the last 2 weeks, how often have you been bothered by any of the following problems? 79520 - PHQ-9 Billing: Patient declined-do not bill Source: Developed by Drs. Clark Ledezma, Ellie Marie, Alfred Tenorio and colleagues, with an educational alexis from [employer]. Thrive Questionnaire Date Thrive assessed: 06/08/24 AMBAR-7 AMB Questionnaire AMBAR-7 Date AMBAR - 7 assessed: 06/08/24 Source: Developed by Drs. Clark Ledezma, Ellie Marie, Alfred Tenorio and colleagues, with an educational alexis from [employer]. Physical exam (Primary Care) Vital Signs: Last Vital Signs Pulse 85 11/09/24 09:04 BP 140/82 H 11/09/24 09:04 Pulse Ox 95 11/09/24 09:04 Oxygen Delivery Method Room Air 11/09/24 09:04 Tobacco/Smoking Status: Tobacco use Status Tobacco use date assessed 11/09/24 11/09/24 09:09 Patient Tobacco Use Status Current everyday Tobacco 11/09/24 09:05 e-Cigarette/Vaping Use Never Used 11/09/24 09:05 Thrive Assessment: Date of Thrive Assessment Date Thrive assessed 06/08/24 11/09/24 09:05 Coding Level of Care Code Est Pt Level 4 (95319) Complex EM visit Add On G2211 Diagnoses Diabetic polyneuropathy associated with type 2 diabetes mellitus E11.42 Chesty cough R05.8 long-term (current) use of insulin Z79.4 Type 2 diabetes mellitus with diabetic polyneuropathy, with long-term current use of insulin E11.42; Z79.4 Diabetes mellitus complication detail: with polyneuropathy Diabetes mellitus complication status: with neurologic complications Diabetes mellitus retirement insulin use: with certified diabetes educator use Diabetes mellitus type: type 2 Vitamin D deficiency E55.9 Recurrent major depressive disorder, in partial remission F33.41 Active/Remission status: in partial remission Obesity (BMI 30-39.9) E66.9 Chronic pain of both knees M25.561; M25.562; G89.29 Chronicity: chronic Primary osteoarthritis of both knees M17.0 Osteoarthritis type: primary Risk for falls Z91.81 Moderate dementia associated with alcoholism, without behavioral disturbance, psychotic disturbance, mood disturbance, or anxiety F10.27 Dementia behavioral or psychological symptom: without behavioral, psychotic, or mood disturbance or anxiety Immobility Z74.09 Assessment & Plan Assessment & Plan (1) Diabetic polyneuropathy associated with type 2 diabetes mellitus: Code(s): E11.42 - Type 2 diabetes mellitus with diabetic polyneuropathy Category: Medical (2) Chesty cough: Code(s): R05.8 - Other specified cough Category: Medical (3) director merit system (current) use of insulin: Code(s): Z79.4 - director merit system (current) use of insulin Category: Medical (4) Diabetes mellitus: Code(s): E11.9 - Type 2 diabetes mellitus without complications Category: Medical Qualifiers: Diabetes mellitus complication detail: with polyneuropathy Diabetes mellitus complication status: with neurologic complications Diabetes mellitus certified diabetes educator insulin use: with certified diabetes educator use Diabetes mellitus type: type 2 Qualified Code(s): E11.42 - Type 2 diabetes mellitus with diabetic polyneuropathy; Z79.4 - long-term (current) use of insulin (5) Vitamin D deficiency: Code(s): E55.9 - Vitamin D deficiency, unspecified Category: Medical (6) Depression, major, recurrent: Code(s): F33.9 - Major depressive disorder, recurrent, unspecified Category: Medical Qualifiers: Active/Remission status: in partial remission Qualified Code(s): F33.41 - Major depressive disorder, recurrent, in partial remission (7) Obesity (BMI 30-39.9): Code(s): E66.9 - Obesity, unspecified Category: Medical (8) Knee pain, bilateral: Code(s): M25.561 - Pain in right knee; M25.562 - Pain in left knee Category: Medical Qualifiers: Chronicity: chronic Qualified Code(s): M25.561 - Pain in right knee; M25.562 - Pain in left knee; G89.29 - Other chronic pain (9) Osteoarthritis of knees, bilateral: Code(s): M17.0 - Bilateral primary osteoarthritis of knee Category: Medical Qualifiers: Osteoarthritis type: primary Qualified Code(s): M17.0 - Bilateral primary osteoarthritis of knee (10) Risk for falls: Code(s): Z91.81 - History of falling Category: Medical (11) Moderate dementia associated with alcoholism: Code(s): F10.27 - Alcohol dependence with alcohol-induced persisting dementia Category: Medical Qualifiers: Dementia behavioral or psychological symptom: without behavioral, psychotic, or mood disturbance or anxiety Qualified Code(s): F10.27 - Alcohol dependence with alcohol-induced persisting dementia (12) Immobility: Code(s): Z74.09 - Other reduced mobility Category: Medical Plan - The patient is a 69-year-old male presenting with routine evaluation and management of diabetes mellitus type , patient also have history of hypertension, severe COPD, severe osteoarthritis bilateral knee, scooter dependent for mobility, obesity, diabetic neuropathy, depression and anxiety, lipid disorder . Last lab test dated February of last year; new set of lab order placed - Cough: Persistent chronic cough noted, worsened by environmental factors such as smoke. No current production of phlegm. Associated wheezing observed. Continued to smoke - COPD: Wheezing noted, particularly on the right side, with questioning of inhaler usage. Which patient is not using regularly - Hyperlipidemia: Elevated LDL at 150 mg/dL as noted in previous labs. Current management includes statins. - Vitamin D deficiency: Last labs showed slightly reduced vitamin D levels; continue supplement - History of missed podiatry appointments noted; new referral placed Also due for eye exam ophthalmology referral placed Scooter dependent for mobility Medications - Long-acting insulin, 80 units daily - Metformin 1 mg, two times daily for diabetes management - Sitagliptin 100 mg daily for diabetes management - Sertraline 100 mg daily - Nifedipine 30 mg daily for hypertension - Repaglinide 2 mg three times daily for diabetes management - Pravastatin 40 mg at bedtime for hyperlipidemia Problem List - Diabetes Mellitus type 2 with elevated hemoglobin A1c - Hyperlipidemia with elevated LDL - Vitamin D deficiency - Chronic cough secondary to COPD and smoking - Wheezing - History of missed podiatry appointment - due for ophthalmology appointment - obesity - hygiene issue Diagnostic results - Labs: - Hemoglobin A1c 7.4 - LDL 150 mg/dL - Normal kidney function - Liver enzymes within normal limits - Thyroid within normal limits - Vitamin D level slightly below normal threshold Patient Instructions - Schedule and attend routine laboratory tests as suggested - Schedule a chest X-ray - Begin or resume use of the prescribed inhaler for management of wheezing and cough - Schedule and attend podiatry and eye appointments as needed Orders: Orders Complete Blood Count Auto Diff Today E11.42 - Type 2 diabetes mellitus with diabetic polyneuropathy, E55.9 - Vitamin D deficiency, unspecified, E66.9 - Obesity, unspecified, F10.27 - Alcohol dependence with alcohol-induced persisting dementia, F33.41 - Major depressive disorder, recurrent, in partial remission, M17.0 - Bilateral primary osteoarthritis of knee, M25.561 - Pain in right knee, M25.562 - Pain in left knee, Z74.09 - Other reduced mobility, Z79.4 - director merit system (current) use of insulin, Z91.81 - History of falling LDL Cholesterol Direct Today E11.42 - Type 2 diabetes mellitus with diabetic polyneuropathy, E55.9 - Vitamin D deficiency, unspecified, E66.9 - Obesity, unspecified, F10.27 - Alcohol dependence with alcohol-induced persisting dementia, F33.41 - Major depressive disorder, recurrent, in partial remission, M17.0 - Bilateral primary osteoarthritis of knee, M25.561 - Pain in right knee, M25.562 - Pain in left knee, Z74.09 - Other reduced mobility, Z79.4 - director merit system (current) use of insulin, Z91.81 - History of falling XR chest 2V Today R05.8 - Other specified cough Hemoglobin A1c Today E11.42 - Type 2 diabetes mellitus with diabetic polyneuropathy, E55.9 - Vitamin D deficiency, unspecified, E66.9 - Obesity, unspecified, F10.27 - Alcohol dependence with alcohol-induced persisting dementia, F33.41 - Major depressive disorder, recurrent, in partial remission, M17.0 - Bilateral primary osteoarthritis of knee, M25.561 - Pain in right knee, M25.562 - Pain in left knee, Z74.09 - Other reduced mobility, Z79.4 - long-term (current) use of insulin, Z91.81 - History of falling Comprehensive Met. Panel Today E11.42 - Type 2 diabetes mellitus with diabetic polyneuropathy, E55.9 - Vitamin D deficiency, unspecified, E66.9 - Obesity, unspecified, F10.27 - Alcohol dependence with alcohol-induced persisting dementia, F33.41 - Major depressive disorder, recurrent, in partial remission, M17.0 - Bilateral primary osteoarthritis of knee, M25.561 - Pain in right knee, M25.562 - Pain in left knee, Z74.09 - Other reduced mobility, Z79.4 - long-term (current) use of insulin, Z91.81 - History of falling Referrals Podiatry Referral E11.9 - Type 2 diabetes mellitus without complications
== END 2024-11-09 09:31 | disposition home or self-care (01) ==
PROVIDERS: PCP Internal Medicine; Visit Provider Internal Medicine
DX: E11.42 Type 2 diabetes mellitus with diabetic polyneuropathy (principal); R05.8 Other specified cough; Z79.4 Long term (current) use of insulin; E55.9 Vitamin D deficiency, unspecified; F33.41 Major depressive disorder, recurrent, in partial remission; E66.9 Obesity, unspecified; M25.561 Pain in right knee; M25.562 Pain in left knee; G89.29 Other chronic pain; M17.0 Bilateral primary osteoarthritis of knee; Z91.81 History of falling; F10.27 Alcohol dependence with alcohol-induced persisting dementia; Z74.09 Other reduced mobility

== ENCOUNTER 2024-11-09 08:46 | Outpatient (REF) | payer OTHER, SELFPAY ==
--- NOTE | ~2024-11-09 | XR_ITS ---
EXAMINATION: XR CHEST 2 VIEWS HISTORY: R05.8 - Other specified cough COMPARISON: Comparison is made with the prior examination dated 03/03/2019. FINDINGS: PA and lateral views of the chest are submitted. There is a 5 mm nodular density in the right lower lung zone. The left lung is clear. There are no focal airspace opacities. There is no pleural effusion, pneumothorax, or pulmonary vascular congestion. The heart is normal in size. The bones are intact. XR/XR chest 2V IMPRESSION: 5 mm nodular opacity in the right lower lung zone. Further evaluation with chest CT is recommended. Electronically signed by: Clark Maciel MD 11/09/2024 11:36 AM EST
[2024-11-09 13:53] LABS: MANUAL DIFF FLAG NO
[2024-11-09 13:56] LABS: Basophils Percent Auto 0.5 % (0-2); Eosinophils Absolute Auto 0.2 X10*3/uL (0.0-0.4); Hematocrit 45.7 % (42.0-52.0); Imm Gran Abs Auto 0.04 X10*3/uL (0.00-0.03); Imm Gran Pct Auto 0.5 % (0.0-0.4); Lymphocytes Absolute Auto 1.4 X10*3/uL (1.2-4.9); Lymphocytes Percent Auto 18.5 % (20-40); Mean Corpuscular HGB Conc 32.8 g/dl (31.0-36.0); Mean Corpuscular Hemoglobin 29.1 pg (27.0-33.0); Mean Corpuscular Volume 88.7 fL (80.0-98.0); Mean Platelet Volume 10.1 fL (9.4-12.4); Monocytes Absolute Auto 0.5 X10*3/uL (0.1-1.2); Monocytes Percent Auto 7.1 % (2-11); Neutrophils Absolute Auto 5.2 x10*3/uL (2.0-8.3); Neutrophils Percent Auto 71.4 % (45-73); Platelet Count 291 X10*3/uL (160-400); Red Blood Count 5.15 X10*6/uL (4.60-5.80); Red Cell Distribution Width 14.6 % (11.0-16.0); White Blood Count 7.4 X10*3/uL (4.8-10.8)
[2024-11-09 14:12] LABS: Estimated Average Glucose 163 mg/dL; Hemoglobin A1C 214.8384 umol/L; Hemoglobin A1c % 7.3 % (<6.0); Total Hemoglobin (HGBA1C) 3800.4397 umol/L
[2024-11-09 15:43] LABS: Alanine Aminotransferase 18 U/L (0-40); Alkaline Phosphatase 99 U/L (39-117); Anion Gap 13 (12-20); Aspartate Amino Transferase 21 U/L (5-37); Bilirubin Total 0.4 mg/dL (0.0-1.0); Blood Urea Nitrogen 9 mg/dL (9-16); Carbon Dioxide 25 mmol/L (22-29); Chloride 105 mmol/L (96-108); Estimated Glomerular Filt Rate > 60; Glucose Random 178 mg/dL (60-115); Potassium 4.2 mmol/L (3.3-5.1); Sodium 139 mmol/L (135-145); Total Protein 7.6 g/dL (6.5-8.0)
[2024-11-10 17:39] LABS: LDL Cholesterol Direct 133 mg/dL (<100)
== END 2024-11-09 08:47 | disposition home or self-care (01) ==
LOC: HO.HMGCX 08:46
PROVIDERS: PCP Internal Medicine; Visit Provider Internal Medicine
DX: E11.42 Type 2 diabetes mellitus with diabetic polyneuropathy (principal); R05.8 Other specified cough; I10 Essential (primary) hypertension; R05.3 Chronic cough; J44.9 Chronic obstructive pulmonary disease, unspecified; E78.5 Hyperlipidemia, unspecified; E55.9 Vitamin D deficiency, unspecified; F33.41 Major depressive disorder, recurrent, in partial remission; E66.9 Obesity, unspecified; M17.0 Bilateral primary osteoarthritis of knee; F10.27 Alcohol dependence with alcohol-induced persisting dementia; F17.210 Nicotine dependence, cigarettes, uncomplicated; Z79.4 Long term (current) use of insulin; Z79.899 Other long term (current) drug therapy; Z91.81 History of falling; Z74.09 Other reduced mobility
CPT/HCPCS: 36415; 71046; 80053; 83036; 83721; 85025; 99212

== ENCOUNTER → 2024-11-09 09:40 | Outpatient (BNV) | payer OTHER, SELFPAY | PROVIDERS: PCP Internal Medicine; Visit Provider Radiology Diagnostic Radiology | DX: R05.8 Other specified cough (principal) | CPT/HCPCS: 71046 ==

== ENCOUNTER → 2025-03-20 23:59 | Outpatient (BNV) | payer OTHER, SELFPAY | PROVIDERS: PCP Internal Medicine; Visit Provider Internal Medicine | DX: E11.9 Type 2 diabetes mellitus without complications (principal); J44.9 Chronic obstructive pulmonary disease, unspecified; I10 Essential (primary) hypertension | CPT/HCPCS: G0179 ==

== ENCOUNTER 2025-05-07 08:35 | Outpatient (AMB) | payer OTHER, SELFPAY ==
--- NOTE | 2025-05-07 08:44 | MHC.PC.OV ---
Vital Signs 05/07/25 08:50 Height 5 ft 8 in Weight 228 lb BMI 34.7 BP 140/82 H Blood Pressure Location Lt brachial Position Sitting Pulse 86 Pulse Source Pulse Oximeter Pulse Oximetry (%) 93 Oxygen Delivery Method Room Air Intake Visit Reasons: Diabetic F/U Allergies No Known Allergies (No Known Allergies*) Allergy (Verified 11/09/24 09:07) Medication List - Last Reconciled 05/07/25 by Toby Pugh MD acetaminophen ER (Tylenol Arthritis Pain) 650 mg PO Q12H 90 days blood sugar diagnostic (FreeStyle Lite Strips) 3 times a day blood-glucose meter (FreeStyle Lite Meter kit) 4 times a day cholecalciferol (vitamin D3) 125 mcg PO DAILY 90 days cyanocobalamin (vitamin B-12) 1,000 mcg sublingual DAILY fluticasone propion-salmeterol 250-50 mcg/dose (Advair Diskus) 1 ea PO BID insulin degludec (Tresiba FlexTouch U-200 insulin) 80 units (0.4 mL) subcut DAILY lancets (FreeStyle Lancets) 3 times a day lisinopril 5 mg PO DAILY metformin 1,000 mg PO BID 90 days naproxen 500 mg PO BID 90 days nifedipine ER 30 mg PO DAILY pen needle, diabetic (Comfort EZ Pen [place]) USE DIRECTED repaglinide 2 mg PO TID sertraline 50 mg PO DAILY simvastatin 40 mg PO BEDTIME sitagliptin phosphate (Januvia) 100 mg PO DAILY Tobacco use date assessed: 11/09/24 Fall risk assessment: No Falls in past year Last assessed Fall Risk: 05/07/25 Dental Screening Dental Screen Date: 05/07/25 Did you have a dental visit in the last 12 months?: No Did you have a dental problem in the last 6 months where you did not have access to dental care?: No Was dental information given to patient?: Patient declined HPI Diabetic F/U HPI Details History - The patient is a 70-year-old male presenting with management of diabetes. The patient reports consistent blood sugar levels between 145 and 150, although levels have reached 300 on occasion, particularly after consuming excessive coffee with sugar. The patient's last hemoglobin A1c measured at 8.4%. 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 - The patient confirms smoking habits of approximately 20 cigarettes per day. He rolls his own cigarettes, citing cost as a factor, and acknowledges occasional alcohol consumption about once a month. - The patient reports severe osteoarthritis in the knees, limiting ambulation to five feet without the aid of a motorized chair. This condition is long-standing and significantly impacts his mobility. - The patient mentions the last blood test was conducted in October and recognizes the need for routine bloodwork. - There is a history of hypertension noted, and the patient is currently medicated for the same. - The patient confirms difficulties due to wheezing on the right lung but denies shortness of breath or any recent worsening of respiratory symptoms. The patient mentions using a motorized chair for mobility, indicating severe arthritis impact. - The last healthcare visit was approximately seven months ago. 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 He has developed a habitual coffee intake associated with that occupation, consuming 12 to 24 cups daily. - Smoking includes approximately 20 cigarettes per day, rolled manually due to financial constraints. - The patient's mobility is severely limited due to knee osteoarthritis, necessitating the use of a motorized chair for distances beyond five feet. Medications - Lisinopril 5 mg for hypertension - Metformin 1 g, twice daily, for diabetes mellitus - Nifedipine 30 mg for hypertension - Sertraline 50 mg - Repaglinide 2 mg, three times daily, for diabetes mellitus - Simvastatin 40 mg - Sitagliptin (Januvia) 100 mg for diabetes mellitus Problem List - Diabetes mellitus with poor glycemic control - Chronic obstructive pulmonary disease - Hypertension - Severe osteoarthritis of the knees - Obesity Diagnostic results - Labs: Hemoglobin A1c measured at 8.4% Patient Instructions - Reduce coffee intake and alternate with water or other low-caffeine beverages. - Prepare for a blood test today and follow up as needed. - Attempt to cut down on smoking if possible. - Return in three months for a follow-up visit. Review of Systems General: No fever no chills neurological: No headaches no dizziness ear nose throat: No sore throat no hearing difficulty no ear pain cardiovascular: No syncope, no chest pain, no palpitations gastrointestinal: No nausea vomiting or diarrhea endocrine: No polyuria polydipsia no heat intolerance genitourinary: No dysuria skin: No new complaints Physical Exam general: No acute distress HEENT: No acute findings neck: Supple respiratory system: Wheezing noted on the right side of the lung cardiovascular: S1-S2 RRR gastrointestinal: No pain extremities: No new findings, difficulty walking due to severe osteoarthritis knees 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 MANAGER: Alert awake oriented x3 motor sensory intact skin: Normal turgor [facility] Medical History Bilateral post-traumatic osteoarthritis of knee Pain in right elbow Depression, major, recurrent Obesity (BMI 30-39.9) Dyslipidemia Hypertension Vitamin D deficiency B12 deficiency Diabetic nephropathy Diabetic polyneuropathy associated with type 2 diabetes mellitus 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 Diabetes type 2, uncontrolled Surgical History History of surgery of head History of back surgery Family History Father Diabetes Mother Alzheimers disease Social History Household Members: None Housing: Apartment Alcohol intake: current Alcohol intake frequency: 0-2 drinks per day Alcohol type: hard liquor Patient Tobacco Use Status: Current everyday Tobacco user Cigarette Packs Per Day: 1 e-Cigarette/Vaping Use: Never Used service: No Current occupational status: unemployed, retired and disabled Cognitive needs: No Hearing needs: No Vision needs: Yes Questionnaire PHQ-9 Over the last 2 weeks, how often have you been bothered by any of the following problems? 1. Little interest or pleasure in doing things: more than half the days 2. Feeling down, depressed, or hopeless: several days 3. Trouble falling or staying asleep, or sleeping too much: several days 4. Feeling tired or having little energy: several days 5. Poor appetite or overeating: more than half the days 6. Feeling bad about yourself - or that you are a failure or have let yourself or your family down: not at all 7. Trouble concentrating on things, such as reading the newspaper or watching television: not at all 8. Moving or speaking so slowly that other people could have noticed. Or the opposite - being so fidgety or restless that you have been moving around a lot more than usual: not at all 9. Thoughts that you would be better off or of hurting yourself in some way: not at all Total score: 7 Depression Screening Interpretation: Negative Depression Screening Done: Yes 84759 - PHQ-9 Billing: Yes Source: Developed by Drs. Clark Ledezma, Ellie Marie, Alfred Tenorio and colleagues, with an educational alexis from [employer]. Thrive Questionnaire Date Thrive assessed: 05/07/25 I am a: Patient What is your living situation today?: I have a steady place to live Within the past 12 months, did the food you bought not last and you didn't have the money to get more?: Never true Within the past 12 months, did you worry whether your food would run out before you got money to buy more?: Never true Do you have trouble paying for medicines?: No Do you have trouble getting transportation to medical appointments?: No Do you have trouble paying your heating and electricity bill?: No Do you have trouble taking care of your child, family member or friend?: No Do you have trouble with day-to-day activities such as bathing, preparing meals, shopping, managing finances, etc.?: No Are you currently unemployed and looking for a job?: No Are you interested in more education?: No Please select the resources that you would like help with: None Currently or been in a relationship where the following occur: No concerns reported THRIVE Score: 0 AUDIT C Alcohol Use Questionnaire (AUDIT-C) 1. How often do you have a drink containing alcohol?: 2-4 times a month 2. How many drinks containing alcohol do you have on a typical day when you are drinking?: 3 or 4 3. How often do you have six or more drinks on one occasion?: Never Total Score: 3 Score Reviewed/Action Taken: Yes AMBAR-7 AMB Questionnaire AMBAR-7 Date AMBAR - 7 assessed: 05/07/25 Feeling nervous, anxious, or on edge: 0 = Not at all Not being able to stop or control worryin = Not at all Worrying too much about different things: 0 = Not at all Trouble relaxin = Not at all Being so restless that it is hard to sit still: 0 = Not at all Becoming easily annoyed or irritable: 0 = Not at all Feeling afraid as if something awful might happen: 0 = Not at all Total AMBAR-7 score (0-4 normal; 5-9 mild; 10-14 moderate; 15-21 severe): 0 Source: Developed by Drs. Clark Ledezma, Ellie Marie, Alfred Tenorio and colleagues, with an educational alexis from [employer]. AMBAR-7 Assessment Billing AMBAR-7 Assessment Tool: AMBAR-7 Assessment 22342 Physical exam (Primary Care) Vital Signs: Last Vital Signs Pulse 86 05/07/25 08:50 BP 140/82 H 05/07/25 08:50 Pulse Ox 93 05/07/25 08:50 Oxygen Delivery Method Room Air 05/07/25 08:50 BMI result Body Mass Index 34.7 Tobacco/Smoking Status: Tobacco use Status Tobacco use date assessed 11/09/24 05/07/25 08:46 Patient Tobacco Use Status Current everyday Tobacco 05/07/25 08:46 e-Cigarette/Vaping Use Never Used 05/07/25 08:46 PHQ-9: PHQ-9 Score PHQ-9: Total score 7 05/07/25 11:10 Depression Screening Interpretation: Negative Thrive Assessment: Date of Thrive Assessment Date Thrive assessed 05/07/25 05/07/25 08:53 Currently or been in a relationship where the following occur: No concerns reported Results AMB Hemoglobin A1c AMB Hemoglobin A1c 8.4 % Last Edit by Mane Barnhart CMA on 05/07/25 09:06 Results Reviewed Results Reviewed: Laboratory Last Values Hgb A1c (Clinic) 8.4 % (4.0-6.0) H 05/07/25 08:56 Coding Level of Care Code Est Pt Level 5 (62412) Diagnoses Uncontrolled type 2 diabetes mellitus with hyperglycemia E11.65 Glycemic state: with hyperglycemia Primary hypertension I10 Hypertension type: primary hypertension Dyslipidemia E78.5 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 Z79.4 Diabetic nephropathy associated with type 2 diabetes mellitus E11.21 Diabetes mellitus type: type 2 Diabetic polyneuropathy associated with type 2 diabetes mellitus E11.42 Primary osteoarthritis of both knees M17.0 Osteoarthritis type: primary B12 deficiency E53.8 Vitamin D deficiency E55.9 Obesity (BMI 30-39.9) E66.9 Immobility Z74.09 Recurrent major depressive disorder, in partial remission F33.41 Active/Remission status: in partial remission Risk for falls Z91.81 Additional Codes AMBAR-7 Assessment Billing - AMBAR-7 Assessment Tool: AMBAR-7 Assessment 23998 ([id number]) PHQ-9 - 66758 - PHQ-9 Billing: Yes ([id number]) Time Spent (min) 40 Comment Reviewing chart/previous labs/tong-kf-czej/coordination of care Assessment & Plan Assessment & Plan (1) Diabetes type 2, uncontrolled: Code(s): E11.65 - Type 2 diabetes mellitus with hyperglycemia Category: Medical Qualifiers: Glycemic state: with hyperglycemia Qualified Code(s): E11.65 - Type 2 diabetes mellitus with hyperglycemia (2) Hypertension: Code(s): I10 - Essential (primary) hypertension Category: Medical Qualifiers: Hypertension type: primary hypertension Qualified Code(s): I10 - Essential (primary) hypertension (3) Dyslipidemia: Code(s): E78.5 - Hyperlipidemia, unspecified Category: Medical (4) assisted (current) use of insulin: Code(s): Z79.4 - 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 Category: Medical (5) Diabetic nephropathy: Code(s): E11.21 - Type 2 diabetes mellitus with diabetic nephropathy Category: Medical Qualifiers: Diabetes mellitus type: type 2 Qualified Code(s): E11.21 - Type 2 diabetes mellitus with diabetic nephropathy (6) Diabetic polyneuropathy associated with type 2 diabetes mellitus: Code(s): E11.42 - Type 2 diabetes mellitus with diabetic polyneuropathy Category: Medical (7) Osteoarthritis of knees, bilateral: Code(s): M17.0 - Bilateral primary osteoarthritis of knee Category: Medical Qualifiers: Osteoarthritis type: primary Qualified Code(s): M17.0 - Bilateral primary osteoarthritis of knee (8) B12 deficiency: Code(s): E53.8 - Deficiency of other specified B group vitamins Category: Medical (9) Vitamin D deficiency: Code(s): E55.9 - Vitamin D deficiency, unspecified Category: Medical (10) Obesity (BMI 30-39.9): Code(s): E66.9 - Obesity, unspecified Category: Medical (11) Immobility: Code(s): Z74.09 - Other reduced mobility Category: Medical (12) Depression, major, recurrent: Code(s): F33.9 - Major depressive disorder, recurrent, unspecified Category: Medical Qualifiers: Active/Remission status: in partial remission Qualified Code(s): F33.41 - Major depressive disorder, recurrent, in partial remission (13) Risk for falls: Code(s): Z91.81 - History of falling Category: Medical Plan History - The patient is a 70-year-old male presenting with management of diabetes. The patient reports consistent blood sugar levels between 145 and 150, although levels have reached 300 on occasion, particularly after consuming excessive coffee with sugar. The patient's last hemoglobin A1c measured at 8.4%. 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 - The patient confirms smoking habits of approximately 20 cigarettes per day. He rolls his own cigarettes, citing cost as a factor, and acknowledges occasional alcohol consumption about once a month. - The patient reports severe osteoarthritis in the knees, limiting ambulation to five feet without the aid of a motorized chair. This condition is long-standing and significantly impacts his mobility. - The patient mentions the last blood test was conducted in October and recognizes the need for routine bloodwork. - There is a history of hypertension noted, and the patient is currently medicated for the same. - The patient confirms difficulties due to wheezing on the right lung but denies shortness of breath or any recent worsening of respiratory symptoms. The patient mentions using a motorized chair for mobility, indicating severe arthritis impact. - The last healthcare visit was approximately seven months ago. 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 He has developed a habitual coffee intake associated with that occupation, consuming 12 to 24 cups daily. - Smoking includes approximately 20 cigarettes per day, rolled manually due to financial constraints. - The patient's mobility is severely limited due to knee osteoarthritis, necessitating the use of a motorized chair for distances beyond five feet. Medications - Lisinopril 5 mg for hypertension - Metformin 1 g, twice daily, for diabetes mellitus - Nifedipine 30 mg for hypertension - Sertraline 50 mg - Repaglinide 2 mg, three times daily, for diabetes mellitus - Simvastatin 40 mg - Sitagliptin (Januvia) 100 mg for diabetes mellitus Problem List - Diabetes mellitus with poor glycemic control - Chronic obstructive pulmonary disease - Hypertension - Severe osteoarthritis of the knees - Obesity Diagnostic results - Labs: Hemoglobin A1c measured at 8.4% Patient Instructions - Reduce coffee intake and alternate with water or other low-caffeine beverages. - Prepare for a blood test today and follow up as needed. - Attempt to cut down on smoking if possible. - Return in three months for a follow-up visit. Orders: Orders AMB Hemoglobin A1c Today Z13.9 - Encounter for screening, unspecified Complete Blood Count Auto Diff Today E11.21 - Type 2 diabetes mellitus with diabetic nephropathy, E11.42 - Type 2 diabetes mellitus with diabetic polyneuropathy, E11.65 - Type 2 diabetes mellitus with hyperglycemia, E53.8 - Deficiency of other specified B group vitamins, E55.9 - Vitamin D deficiency, unspecified, E66.9 - Obesity, unspecified, E78.5 - Hyperlipidemia, unspecified, F33.41 - Major depressive disorder, recurrent, in partial remission, I10 - Essential (primary) hypertension, M17.0 - Bilateral primary osteoarthritis of knee, Z74.09 - Other reduced mobility, Z79.4 - 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 Vitamin D 25-OH (D2 and D3) Today E11.21 - Type 2 diabetes mellitus with diabetic nephropathy, E11.42 - Type 2 diabetes mellitus with diabetic polyneuropathy, E11.65 - Type 2 diabetes mellitus with hyperglycemia, E53.8 - Deficiency of other specified B group vitamins, E55.9 - Vitamin D deficiency, unspecified, E66.9 - Obesity, unspecified, E78.5 - Hyperlipidemia, unspecified, F33.41 - Major depressive disorder, recurrent, in partial remission, I10 - Essential (primary) hypertension, M17.0 - Bilateral primary osteoarthritis of knee, Z74.09 - Other reduced mobility, Z79.4 - assisted (current) use of insulin, Z91.81 - History of falling Microalbumin, Random (w Creat) Today E11.21 - Type 2 diabetes mellitus with diabetic nephropathy, E11.42 - Type 2 diabetes mellitus with diabetic polyneuropathy, E11.65 - Type 2 diabetes mellitus with hyperglycemia, E53.8 - Deficiency of other specified B group vitamins, E55.9 - Vitamin D deficiency, unspecified, E66.9 - Obesity, unspecified, E78.5 - Hyperlipidemia, unspecified, F33.41 - Major depressive disorder, recurrent, in partial remission, I10 - Essential (primary) hypertension, M17.0 - Bilateral primary osteoarthritis of knee, Z74.09 - Other reduced mobility, Z79.4 - 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 Vitamin B12 Today E11.21 - Type 2 diabetes mellitus with diabetic nephropathy, E11.42 - Type 2 diabetes mellitus with diabetic polyneuropathy, E11.65 - Type 2 diabetes mellitus with hyperglycemia, E53.8 - Deficiency of other specified B group vitamins, E55.9 - Vitamin D deficiency, unspecified, E66.9 - Obesity, unspecified, E78.5 - Hyperlipidemia, unspecified, F33.41 - Major depressive disorder, recurrent, in partial remission, I10 - Essential (primary) hypertension, M17.0 - Bilateral primary osteoarthritis of knee, Z74.09 - Other reduced mobility, Z79.4 - assisted (current) use of insulin, Z91.81 - History of falling LDL Cholesterol Direct Today E11.21 - Type 2 diabetes mellitus with diabetic nephropathy, E11.42 - Type 2 diabetes mellitus with diabetic polyneuropathy, E11.65 - Type 2 diabetes mellitus with hyperglycemia, E53.8 - Deficiency of other specified B group vitamins, E55.9 - Vitamin D deficiency, unspecified, E66.9 - Obesity, unspecified, E78.5 - Hyperlipidemia, unspecified, F33.41 - Major depressive disorder, recurrent, in partial remission, I10 - Essential (primary) hypertension, M17.0 - Bilateral primary osteoarthritis of knee, Z74.09 - Other reduced mobility, Z79.4 - assisted (current) use of insulin, Z91.81 - History of falling TSH reflex Free T4 Today E11.21 - Type 2 diabetes mellitus with diabetic nephropathy, E11.42 - Type 2 diabetes mellitus with diabetic polyneuropathy, E11.65 - Type 2 diabetes mellitus with hyperglycemia, E53.8 - Deficiency of other specified B group vitamins, E55.9 - Vitamin D deficiency, unspecified, E66.9 - Obesity, unspecified, E78.5 - Hyperlipidemia, unspecified, F33.41 - Major depressive disorder, recurrent, in partial remission, I10 - Essential (primary) hypertension, M17.0 - Bilateral primary osteoarthritis of knee, Z74.09 - Other reduced mobility, Z79.4 - 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
[2025-05-07 08:50] VITALS: BP 140/82; PULSE 86; O2SAT 93; BMI 34.7
--- OUTSIDE RECORDS SUMMARY | 2025-05-07 08:54 | XMS_ITS | Data Portability ---
Author Organization [facility], [facility] Address [address] [place] [phone] Care Team Providers Care Fern Gatherer Name Role Phone [facility] Referring Provider [phone] Assessment Encounter Date Assessment Date Assessment LastModified by Organization Details LastModified Time 03/10/2023 03/10/2023 I provided real -time medical direction via phone for this encounter, and was available for additional phone based assistance as needed. I have reviewed and agree with the Assessment and Plan as documented by the Budget Manager. Patient given the opportunity to ask questions. Advised if develops CP/severe SOB/turning blue/ AMS/ syncope/ hi fever to call 911- advised need to discuss further venous stasis pain management with pcp tomorrow- he verbalized understanding of instructions to medic- little interest in dietary modification [email or web address] Not available 03/10/2023 13:23:52 Plan of Treatment Reminders Order Date Submit Date Provider Last Modified By Organization Details Last Modified Time Details Appointments None recorded. Lab glucose, fingerstick , blood 2022 023 [email or web address], [phone] 3 13:14:41 BMP, serum or plasma 2022 023 [email or web address], [phone] 3 13:21:46 Referral None recorded. Procedures None recorded. Surgeries None recorded. Imaging None recorded. Medication Orders ketorolac 30 mg/mL (1 mL) injection solution 2022 023 [email or web address] 0 [facility]/Pharmacy #[id number], [address] [place], [address], 3 13:21:46 amoxicillin 500 mg capsule 2022 023 [facility]/Pharmacy #[id number], [address] [place], [address], 10:48:25 Patient TargetsNo targets recorded. Patient InstructionsNo instructions recorded. Reason for Referral None Reported. Results Created Date Observation Date Name Description Value Unit Range Abnormal Flag Note LastModifiedBy Organization Detail LastModifiedTime 03/10/20 23 03/10/2023 BMP, serum or plasm a BUN 12 Not Available [facility] - Ins [address], [address] [place] [address] 03/10/2023 13:14:50 03/10/2003/10/2023 BMP, serum or plasm a Ca I roseann 1.23 Not Available [facility] - [facility] ed [address] [place] [address], [address] [place] [address] 03/10/2023 13:14:50 03/10/20 23 03/10/2023 BMP, serum or plasm a CI- 103 Not Available Main - Ins [address], [address] [place] [address] 03/10/2023 13:14:50 03/10/20 23 03/10/2023 BMP, serum or plasm a CRE 0.5 Not Available Main - Ins [address], [address] [place] [address] 03/10/2023 13:14:50 03/10/20 23 03/10/2023 BMP, serum or plasm a GLU did not report see finger stick Not Available [facility] - [address], [address] [place] [address] 03/10/2023 13:14:50 03/10/20 23 03/10/2023 BMP, serum or plasm a K+ 4.1 Not Available Main - Ins [address], [address] [place] [address] 03/10/2023 13:14:50 03/10/20 23 03/10/2023 BMP, serum or plasm a Na+ 135 Not Available Main - Ins [address], [address] [place] [address] 03/10/2023 13:14:50 03/10/20 23 03/10/2023 BMP, serum or plasm a tCO2 24 Not Available Main - Ins [address], [address] [place] [address] 03/10/2023 13:14:50 03/10/20 23 03/10/2023 BMP, serum or plasm a eGFR not report ed Not Available Main - [facility] ed [address] [place] [address], [phone] 03/10/2023 13:14:50 03/10/20 23 03/10/2023 gluco se, andrei batista k, blood Blood Glucose: mg/dl 295 Not Available Main - [facility] [address] [place] [address], [phone] 03/10/2023 13:14:08 Result Notes None recorded. Medical Equipment None Reported. Allergies No known drug allergies Medications Name Sig Start Date Stop Date Status Note LastModified by Organization Details LastModified Time nifedipine ER 30 mg tablet,exten ded release 24 hr TAKE 1 TABLET BY MOUTH ONCE DAILY active Not Available Not Available No t Available celecoxib 200 mg capsule active Not Available Not Available Not Available amoxicillin 500 mg capsule Take 1 capsule every 8 hours by oral route for 7 days. active Not Available Not Available Not Available fluticasone 250 mcg-salmeter ol 50 mcg/dose blistr powdr for inhalation INHALE 1 PUFF BY MOUTH INTO THE lungs two (2) times a day active Not Available Not Available Not Available repaglinide 2 mg tablet TAKE 1 TABLET BY MOUTH 3 (THREE) TIMES A DAY active Not Available Not Available Not Available ketorolac 30 mg/mL (1 mL) injection solution 30 mg IM x1 2022 active Not Available Not Available Not Avai lable simvastatin 40 mg tablet TAKE 1 TABLET BY MOUTH AT BEDTIME active Not Available Not Available No t Available metformin 1,000 mg tablet TAKE 1 TABLET BY MOUTH two (2) times a day active Not Available Not Available No t Available lisinopril 5 mg tablet TAKE 1 TABLET BY MOUTH ONCE DAILY active Not Available Not Available No t Available sertraline 50 mg tablet TAKE 1 TABLET BY MOUTH ONCE DAILY active Not Available Not Available No t Available Januvia 100 mg tablet TAKE 1 TABLET BY MOUTH ONCE DAILY active Not Available Not Available No t Available Comfort EZ Pen [place] 31 gauge x 5/16 USE DIRECTED active Not Available Not Available No t Available Tresiba FlexTouch U-200 insulin 200 unit/mL (3 mL) subcutaneous pen INJECT 80 UNITS SUBCUTANEOU SLY ONCE DAILY active Not Available Not Available No t Available Flowflex COVID-19 Antigen Home Test kit USE DIRECTED active Not Available Not Available No t Available Vitals Date Recorded Body weight Respiratory rate Heart rate Body temperature Oxygen saturation Oxygen saturation in Arterial blood by Pulse oximetry Systolic And Diastolic Provider Name and Address Organization Details Last Updated DateTime 3 057561. 88 g 18 /min 85 /min 97.1 [degF] 96 % 96 % 159/84 mm[Hg] Not Available [facility] - production 3 10:38:21 Date Recorded Heart rate Respiratory rate Body weight Oxygen saturation Oxygen saturation in Arterial blood by Pulse oximetry Body temperature Respiratory rate Body temperature Heart rate Body weight Oxygen saturation Oxygen saturation in Arterial blood by Pulse oximetry Provider Name and Address Organization Details Last Updated DateTime 3 89 /min 18 /min 719676. 92 g 97 % 97 % 97.1 [degF] 18 /min 97.1 [degF] 89 /min 400277. 92 g 97 % 97 % Not Available [facility] - production 3 13:30:08 Date Recorded Systolic And Diastolic Systolic And Diastolic Provider Name and Address Organization Details Last Updated DateTime 03/10/2023 157/76 mm[Hg] 157/76 mm[Hg] Not Available [facility] - [facility] 03/10/2023 13:30:08 Social History None recorded. Functional Status None recorded. Mental Status None recorded. Family History Nothing Reported. Medical History No medical history recorded. Past Encounters Encounter ID Performer Location Encounter Start Date Encounter Closed Date Diagnosis/Indication Diagnosis SNOMED-CT Code Diagnosis ICD10 Code Diagnosis Note [id number] Yaya Conley MD Main - [address] [phone] 01/10/2023 10:38:08 01/12/2023 09:43:41 Paronychia of finger of right hand [id number] L03.011 This 67-year-ol d male has had swelling and pain of his distal right thumb for several days with no history of trauma. There has been some purulent drainage but no fever. I reviewed images of the area and he clearly has a paronychia . I ordered Amoxicilli n 500 mg tid for seven days. He will follow-up with his PCP. The patient agreed with this plan. [id number] Yarelis Osborne MD Main - [address] [place] [address] 03/10/2023 12:54:58 03/11/2023 14:14:21 Chronic pain syndrome 247653686 G89.4 chronic edema/ venous stasis of LE- no evidence of acute cellulitis -or CHF clinically - patient taking too much Tylenol- advised limit to 4 grams/ 24hr max - patient denies hx ckd- checked bmp- renal function nl- bs would not read but got accucheck for BS no longer on celebrex/ on no anticoagul ants- Advised can give 1 dose ketorolac- repeat dosing not advisable as can affect renal function/i nteract w/ antihypert ensives and increase risk of bleeding Suggested to elevate legs/ reduce salt and sugar intake - will help with dm/ weight and thus reduce edema/ venous stasis and pain / also smoking cessation will assist w/ reducing PVD- is board attendant commitment - advised no simple fix Health Concerns Section Related Observation LastModified by Organization Detai ls LastModified Time None Recorded Concern Status LastModified by Organization Details LastModified Time None Recorded Advance Directives Directive None Recorded Payers Insurance Date Sequence Insurance Name Policy Number Policy Ramirez Covered Member ID Ramirez Member ID Guarantor Name 03/10/2023 1 [facility] - DOS PRIOR TO 2023 - DUAL ELIGIBLE (MEDICARE REPLACEMENT/AD VANTAGE - HMO) Gilberto Vásquez [id number] Gilberto Vásquez 11/22/2023 1 [facility] - DOS ON OR AFTER 2023 - DUAL ELIGIBLE - LONG-TERM OPTIONS AND ONE CARE (MEDICARE REPLACEMENT/AD VANTAGE - HMO) Gilberto Vásquez [id number] Gilberto Vásquez Notes Date Note Type Note Provider Name and Address Organization Details Recorded Time 01/10/2023 text/html [facility] Nursing Assessment: Reason For Request: Infected thumb Chief Complaints: Pain, Wound Care PMH: Diabetes Allergies: No Known Comments: Member calling in to place a referral, identified via /name. Member with 2 day history of thumb pain. Member denies trauma, scratch, splinter etc to thumb. Member thumb is now swollen with pus draining from one side, it is warm to touch, He has been washing and applying bacitracin with no improvement. Denies fever/chills. Would like thumb evaluated. Yaya Conley MD [address] [facility],[address], [place], [phone], [place] [facility] 01/10/2023 10:58:16 03/10/2023 text/html [facility] Nursing Assessment: Reason For Request: pt kneecaps down scarlet red, seems and looks like as if he is bleeding under his leg>Pts states when he walks there is pain, PT doc told them he has arthritis but pt states he doesn't feel this is connected to that. PT states these symptoms have been going on for a year>Liquid discharge>No swelling. Chief Complaints: Edema PMH: Diabetes Allergies: No Known Comments: Member calling in to place a referral, identified via /name. Member with LE pain x1 year, however, from his knee caps down his legs are extremely painful and red, denies swelling, says he can see blood tinged drainage under his skin, but unsure how else to describe what his legs look like. Denies hx of cellulitis. Member would like to be evaluated- Kathya SEG: pat non compliant with diet- hi salt/ sugar- had coffee w/ sugar when medic arrived/home poorly kept/hygiene issues noted by medic- no fever/chills/ no increased SOB/ no CP- wants something for pain in legs- is taking Tylenol 650mg 3 tablets every 6 hrs without relief- still smoking........... .................. .................. .................. .................. .................. .................. .................. .... Budget Manager Note From Jasbir Cornell: Pt reports one year of bilateral lower leg pain unrelieved by APAP. Pt denies CP SOB, f/n/v/d. Pt is alert, no distress. VSS. Afebrile. Neuro exam and gait normal. Lungs CTA. Lower legs are discolored and very painful to touch. unremarkable BMP. Pts sx c/w chronic venous stasis. Pt treated with 30 mg IM ketorolac in the right deltoid. Pt educated to keep legs elevated, proper APAP dose, decrease salt and sugar intake, quit smoking. Pt instructed to f/u with PCP and to seek emergent medical care for new or worsening sx, which are reviewed with him. .................. .................. .................. .................. .................. .................. .................. ............... Disposition: Fulfilled Yarelis Osborne MD [address] [facility],[address], [place], [address], [facility] 03/10/2023 17:51:25
== END 2025-05-07 09:15 | disposition home or self-care (01) ==
LOC: HO.HMCC 08:36
PROVIDERS: PCP Internal Medicine; Visit Provider Internal Medicine
DX: E11.65 Type 2 diabetes mellitus with hyperglycemia (principal); Z79.4 Long term (current) use of insulin; E11.21 Type 2 diabetes mellitus with diabetic nephropathy; E11.42 Type 2 diabetes mellitus with diabetic polyneuropathy; I10 Essential (primary) hypertension; E78.5 Hyperlipidemia, unspecified; M17.0 Bilateral primary osteoarthritis of knee; E53.8 Deficiency of other specified B group vitamins; E55.9 Vitamin D deficiency, unspecified; E66.9 Obesity, unspecified; Z74.09 Other reduced mobility; F33.41 Major depressive disorder, recurrent, in partial remission

== ENCOUNTER → 2025-05-07 08:35 | Outpatient (BNVA) | payer OTHER, SELFPAY | PROVIDERS: PCP Internal Medicine; Visit Provider Internal Medicine | DX: E11.65 Type 2 diabetes mellitus with hyperglycemia (principal); M17.0 Bilateral primary osteoarthritis of knee; I10 Essential (primary) hypertension; R06.2 Wheezing; E78.5 Hyperlipidemia, unspecified; E11.21 Type 2 diabetes mellitus with diabetic nephropathy; E11.42 Type 2 diabetes mellitus with diabetic polyneuropathy; E53.8 Deficiency of other specified B group vitamins; E55.9 Vitamin D deficiency, unspecified; E66.9 Obesity, unspecified; F33.41 Major depressive disorder, recurrent, in partial remission; F17.210 Nicotine dependence, cigarettes, uncomplicated; Z91.81 History of falling; Z74.09 Other reduced mobility; Z79.4 Long term (current) use of insulin; Z68.34 Body mass index [BMI] 34.0-34.9, adult | CPT/HCPCS: 83036; 96127; 99212 ==

== ENCOUNTER 2025-05-27 13:20 | Outpatient (AMB) | payer OTHER, SELFPAY ==
[2025-05-27 13:22] VITALS: BP 150/82; PULSE 85; O2SAT 95; BMI 35.2
--- NOTE | 2025-05-27 13:22 | A.OFFVIS_ITS ---
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 He is accompanied by his porter sample case Lawanda. He was referred by PCP for pulmonary evaluation after incidental finding on CXR revealing 5 mm nodular density of RLL. CT chest was recommended however patient refuses further evaluation with CT imaging. He reports ongoing dry cough, dyspnea, wheezing and chest tightness. More recently cough productive unsure of sputum color with associated chest congestion. Denies fevers or chills. He is currently prescribed Advair however does not use. He denies prior h/o asthma. He denies h/o recurrent URI. 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 He reports father with COPD otherwise denies any pertinent family history. 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 Diabetes type 2, uncontrolled Surgical History History of surgery of head History of back surgery Family History Father Diabetes Mother Alzheimers disease Social History Household Members: None Housing: Apartment Alcohol intake: current Alcohol intake frequency: 0-2 drinks per day Alcohol type: hard liquor Patient Tobacco Use Status: Current everyday Tobacco user Cigarette Packs Per Day: 1 e-Cigarette/Vaping Use: Never Used service: No Current occupational status: unemployed, retired and disabled Cognitive needs: No Hearing needs: No Vision needs: Yes Review of Systems Const Denies chills, Denies excessive sweating, Denies fever(s), Denies headache(s) and Denies night sweats Eyes Denies dry eyes, Denies irritation and Denies itchy eyes ENT Reports Normal hearing present, Denies headache(s), Denies nasal congestion, Denies nasal discharge, Denies post nasal drip and Denies sore throat Card Denies chest pain, Denies chest pain at rest, Denies chest pain with activity, Denies claudication, Denies leg edema, Reports dyspnea on exertion, Denies orthopnea and Denies paroxysmal nocturnal dyspnea Resp Reports chest congestion, Reports cough, Denies hemoptysis, Denies excessive phlegm production, Denies pain on inspiration, Denies pain with cough, Reports dyspnea on exertion, Denies stridor and Reports wheezing Musc Denies myalgias Neuro Reports Normal hearing present and Denies headache(s) Endo Denies excessive sweating Audi/Lymph Denies lymphadenopathy Aller/Immun Denies itchy eyes, Denies seasonal rhinorrhea and Reports wheezing Physical Exam Vital Signs: Last Vital Signs Pulse 85 05/27/25 13:22 BP 150/82 H 05/27/25 13:22 Pulse Ox 95 05/27/25 13:22 Oxygen Delivery Method Room Air 05/27/25 13:22 BMI result Body Mass Index 35.2 Const General: cooperative, comfortable, no acute distress, alert and poor hygiene Nutritional Appearance: obese Orientation/consciousness: patient oriented x3 Limitations: wheelchair HEENT Head: Yes normal to inspection, Yes normocephalic and Yes atraumatic Ears: hearing grossly normal bilaterally and external ears normal Eyes General: appearance normal, both eyes and all related structures Eyelids: Yes eyelids normal Sclerae: sclerae normal EOM: EOMs intact bilaterally Neck Neck: Yes normal visual inspection and Yes no lymphadenopathy Lymphatic: no lymphadenopathy noted Chest Chest palpation & inspection: normal inspection of the chest Resp Effort & Inspection: normal respiratory effort, able to speak in complete sentences, audible wheezes, Actively coughing, no stridor, not tachypneic, no tripod positioning and no use of accessory muscles Auscultation: rhonchi and wheezes Cardio Jugular venous distension: no JVD Rate: regular rate Rhythm: regular rhythm Skin Other: warm, dry General skin exam: no rashes or lesions noted Neuro General: patient oriented x3 Cranial nerves: Yes Normal hearing present Cognition (Neuro): normal cognition Gait exam (Neuro): Normal gait present Extrem General: Yes normal to inspection, Yes capillary refill normal, Yes no clubbing, cyanosis or edema and Yes no pedal edema Psych Appearance: grossly normal and well kempt Speech and movement: Normal speech and movement present and Clear speech present Affect: normal affect Attitude: cooperative Thought process: Normal thought process present Thought content: Normal thought content present Insight: Good insight present (Psych) Judgement: Good judgement present (Psych) Results Reviewed Results Reviewed: [facility] [place] [address] XRay Report Signed Patient: Gilberto Vásquez MR#: [id number] : 1955 Acct:[id number] Age/Sex: 69 / M ADM Date: 11/09/24 Loc: .[facility] Attending Dr: Toby Pugh MD Ordering Physician: Toby Pugh MD Date of Service: 11/09/24 Procedure(s): XR chest 2V Accession Number(s): [id number] cc: Toby Pugh MD~ EXAMINATION: XR CHEST 2 VIEWS HISTORY: R05.8 - Other specified cough COMPARISON: Comparison is made with the prior examination dated 03/03/2019. FINDINGS: PA and lateral views of the chest are submitted. There is a 5 mm nodular density in the right lower lung zone. The left lung is clear. There are no focal airspace opacities. There is no pleural effusion, pneumothorax, or pulmonary vascular congestion. The heart is normal in size. The bones are intact. XR/XR chest 2V IMPRESSION: 5 mm nodular opacity in the right lower lung zone. Further evaluation with chest CT is recommended. Electronically signed by: Clark Maciel MD 11/09/2024 11:36 AM EST Dictated By: Clark Maciel MD Signed By: <Electronically signed by Clark Maciel MD in OV> 11/09/24 1136 DD/ 0940 Assessment & Plan Assessment & Plan (1) COPD (chronic obstructive pulmonary disease): Code(s): J44.9 - Chronic obstructive pulmonary disease, unspecified Category: Medical (2) Opacity of lung on imaging study: Code(s): R91.8 - Other nonspecific abnormal finding of lung field Category: Medical (3) Nicotine dependence, cigarettes, uncomplicated: Code(s): F17.210 - Nicotine dependence, cigarettes, uncomplicated Category: Medical Plan Gilberto presents for pulmonary evaluation after incidental finding on chest x-ray. Discussed importance of further evaluation with chest CT however patient adamantly refused. He was agreeable to chest x-ray which he will obtain today. Will treat bronchitic symptoms with doxycycline and prednisone. Reviewed potential side effects of hyperglycemia, encouraged patient to closely monitor blood glucose. He is aware to call if symptoms do not improve. Discussed importance of compliance with Advair and will send prescription for nebulized therapy to use p.r.n.. Will send for PFT to assess severity of COPD. All questions were answered and patient is in agreement of plan. Will follow-up in 6-8 weeks or sooner if needed. Orders: Orders PFT pulmonary function test Today J44.9 - Chronic obstructive pulmonary disease, unspecified XR chest 2V Today R91.8 - Other nonspecific abnormal finding of lung field Medications: New prednisone 20 mg x 5 days followed by 10 mg x 5 days 20 mg PO DAILY 15 tabs 0RF ipratropium-albuterol 0.5 mg-3 mg(2.5 mg base)/3 mL 3 mL inhalation Q6H PRN 180 mL 0RF wheezing doxycycline hyclate 100 mg PO BID 14 caps 0RF Coding Level of Care Code New Pt Level 4 (24526) Diagnoses COPD (chronic obstructive pulmonary disease) J44.9 Opacity of lung on imaging study R91.8 Nicotine dependence, cigarettes, uncomplicated F17.210
== END 2025-05-27 14:04 | disposition home or self-care (01) ==
LOC: HO.HPS 13:20
PROVIDERS: PCP Internal Medicine; Referring Provider Internal Medicine; Visit Provider Nurse Practitioner Family
DX: J44.9 Chronic obstructive pulmonary disease, unspecified (principal); R91.8 Other nonspecific abnormal finding of lung field; F17.210 Nicotine dependence, cigarettes, uncomplicated
CPT/HCPCS: 99204

== ENCOUNTER 2025-05-27 13:20 | Outpatient (REF) | payer OTHER, SELFPAY ==
--- NOTE | ~2025-05-27 | XR_ITS ---
EXAMINATION: XR CHEST CLINICAL INFORMATION: R91.8 - Other nonspecific abnormal finding of lung field COMPARISON: November 09, 2024. TECHNIQUE: 2 views of the chest were obtained. FINDINGS: Pulmonary reticular pattern. No consolidation, pleural effusion or pneumothorax. Cardiomediastinal silhouette size is normal. Calcified plaque thoracic aorta. Multilevel thoracolumbar spondylosis. XR/XR chest 2V IMPRESSION: Chronic interstitial lung disease. No acute airspace disease. Electronically signed by: George Gallagher MD 05/27/2025 03:17 PM EDT
== END 2025-05-27 13:21 | disposition home or self-care (01) ==
LOC: HO.XRAY 13:20
PROVIDERS: PCP Internal Medicine; Referring Provider Internal Medicine; Visit Provider Nurse Practitioner Family
DX: R05.8 Other specified cough (principal); J44.9 Chronic obstructive pulmonary disease, unspecified; R07.89 Other chest pain; R91.8 Other nonspecific abnormal finding of lung field; R06.2 Wheezing; R06.09 Other forms of dyspnea; F17.210 Nicotine dependence, cigarettes, uncomplicated
CPT/HCPCS: 71046; 99202

== ENCOUNTER → 2025-05-27 14:13 | Outpatient (BNV) | payer OTHER, SELFPAY | PROVIDERS: PCP Internal Medicine; Referring Provider Internal Medicine; Visit Provider Radiology Diagnostic Radiology | DX: R91.8 Other nonspecific abnormal finding of lung field (principal) | CPT/HCPCS: 71046 ==

== ENCOUNTER 2025-07-15 10:04 | Outpatient (AMB) | payer OTHER, SELFPAY ==
--- NOTE | 2025-07-15 10:06 | A.OFFVIS_ITS ---
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 He is accompanied by his registered nurse hh case manager Lawanda. He was referred by PCP for pulmonary evaluation after incidental finding on CXR revealing 5 mm nodular density of RLL. CT chest was recommended however patient refuses further evaluation with CT imaging. He was agreeable to CXR which he had performed which revealed pulmonary reticular pattern. Again discussed further evaluation with chest CT however he refuses. At the last visit, he was treated for COPD exacerbation with doxycycline as well as prednisone. It is unclear if he took either one of these medications, registered nurse hh case manager can not confirm. He reports improvements in cough and chest congestion, possible that he took the abx however continues with significant wheezing. He is currently prescribed Advair however does not use consistently, reports daily use of DuoNeb. He has upcoming PFT scheduled in August. 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 Diabetes type 2, uncontrolled Surgical History History of surgery of head History of back surgery Family History Father Diabetes Mother Alzheimers disease Social History (Updated 07/15/25 @ 10:12 by Ana Paula Cook CMA) Household Members: None Housing: Apartment Alcohol intake: current Alcohol intake frequency: 0-2 drinks per day Alcohol type: hard liquor Patient Tobacco Use Status: Current everyday Tobacco user Cigarette Packs Per Day: 1 Cigarettes Per Day: 20 e-Cigarette/Vaping Use: Never Used service: No Current occupational status: unemployed, retired and disabled Cognitive needs: No Hearing needs: No Vision needs: Yes Review of Systems Const Denies chills, Denies excessive sweating, Denies fever(s), Denies headache(s) and Denies night sweats Eyes Denies dry eyes, Denies irritation and Denies itchy eyes ENT Reports Normal hearing present, Denies headache(s), Denies nasal congestion, Denies nasal discharge, Denies post nasal drip and Denies sore throat Card Denies chest pain, Denies chest pain at rest, Denies chest pain with activity, Denies claudication, Denies leg edema, Reports dyspnea on exertion, Denies orthopnea and Denies paroxysmal nocturnal dyspnea Resp Denies hemoptysis, Denies excessive phlegm production, Denies pain on inspiration, Denies pain with cough, Reports dyspnea on exertion, Denies stridor and Reports wheezing Musc Denies myalgias Neuro Reports Normal hearing present and Denies headache(s) Endo Denies excessive sweating Audi/Lymph Denies lymphadenopathy Aller/Immun Denies itchy eyes, Denies seasonal rhinorrhea and Reports wheezing Physical Exam Vital Signs: Last Vital Signs Pulse 86 07/15/25 10:07 BP 140/62 H 07/15/25 10:07 Pulse Ox 95 07/15/25 10:07 Oxygen Delivery Method Room Air 07/15/25 10:07 BMI result Body Mass Index 34.7 Const General: cooperative, comfortable, no acute distress, alert and poor hygiene Nutritional Appearance: obese Orientation/consciousness: patient oriented x3 Limitations: wheelchair HEENT Head: Yes normal to inspection, Yes normocephalic and Yes atraumatic Ears: hearing grossly normal bilaterally and external ears normal Eyes General: appearance normal, both eyes and all related structures Eyelids: Yes eyelids normal Sclerae: sclerae normal EOM: EOMs intact bilaterally Neck Neck: Yes normal visual inspection and Yes no lymphadenopathy Lymphatic: no lymphadenopathy noted Chest Chest palpation & inspection: normal inspection of the chest Resp Effort & Inspection: normal respiratory effort, able to speak in complete sentences, audible wheezes, no cough, no stridor, not tachypneic, no tripod positioning and no use of accessory muscles Auscultation: no rhonchi, wheezes and diminished lung sounds Cardio Jugular venous distension: no JVD Rate: regular rate Rhythm: regular rhythm Skin Other: warm, dry General skin exam: no rashes or lesions noted Neuro General: patient oriented x3 Cranial nerves: Yes Normal hearing present Cognition (Neuro): normal cognition Gait exam (Neuro): Normal gait present Extrem General: Yes normal to inspection, Yes capillary refill normal, Yes no clubbing, cyanosis or edema and Yes no pedal edema Psych Appearance: grossly normal and well kempt Speech and movement: Normal speech and movement present and Clear speech present Affect: normal affect Attitude: cooperative Thought process: Normal thought process present Thought content: Normal thought content present Insight: Good insight present (Psych) Judgement: Good judgement present (Psych) Office Procedures Nebulizer Treatment Nebulizer Treatment 58606-Agjylpkor/MDI RX initial, or Nebulizer Subsequent Treatment Office Meds ipratropium 0.5 mg-albuterol 3 mg (2.5 mg base)/3 mL nebulization soln Performing Provider: Jazmin Shea NP Performing Location: 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 TECHNIQUE: 2 views of the chest were obtained. FINDINGS: Pulmonary reticular pattern. No consolidation, pleural effusion or pneumothorax. Cardiomediastinal silhouette size is normal. Calcified plaque thoracic aorta. Multilevel thoracolumbar spondylosis. XR/XR chest 2V IMPRESSION: Chronic interstitial lung disease. No acute airspace disease. 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: Assessment & Plan Assessment & Plan (1) COPD (chronic obstructive pulmonary disease): Code(s): J44.9 - Chronic obstructive pulmonary disease, unspecified Category: Medical (2) Opacity of lung on imaging study: Code(s): R91.8 - Other nonspecific abnormal finding of lung field Category: Medical (3) Nicotine dependence, cigarettes, uncomplicated: Code(s): F17.210 - Nicotine dependence, cigarettes, uncomplicated Category: Medical Plan Gilberto was initially referred after incidental finding on chest x-ray 10/2024 revealed possible 5 mm pulmonary nodule with recommendations for Chest CT however patient refuses. Recent CXR revealed chronic interstitial changes. He was agreeable to repeat Discussed importance of further evaluation with chest CT however patient adamantly refused. Patient continues with wheezing, unsure if prednisone was obtained previously. DuoNeb given in office with improved aeration and mild decrease in wheezing. Will prescribe and encouraged consistent use of Advair in addition to DuoNeb PRN. Reviewed potential side effects of hyperglycemia, encouraged patient to closely monitor blood glucose. He is aware to call if symptoms do not improve. Smoking cessation reviewed and patient not ready to quit. All questions were answered and patient is in agreement of plan. Will follow-up in 8-10 weeks or sooner if needed. Orders: Orders AMB Nebulizer Treatment 07/15/25 J44.9 - Chronic obstructive pulmonary disease, unspecified Medications: New prednisone see taper instructions 20 mg x 5 days followed by 10 mg x 5 days 10 mg PO DIRECTED 15 tabs 0RF Coding Level of Care Code Est Pt Level 4 (66824) Diagnoses COPD (chronic obstructive pulmonary disease) J44.9 Opacity of lung on imaging study R91.8 Nicotine dependence, cigarettes, uncomplicated F17.210 CPT Codes Nebulizer Treatment - Nebulizer Treatment, initial or subsequent: 86129- Nebulizer/MDI RX initial, or Nebulizer Subsequent Treatment ([id number])
[2025-07-15 10:07] VITALS: BP 140/62; PULSE 86; O2SAT 95; BMI 34.7
== END 2025-07-15 10:46 | disposition home or self-care (01) ==
LOC: HO.HPS 10:05
PROVIDERS: PCP Internal Medicine; Visit Provider Nurse Practitioner Family
DX: J44.9 Chronic obstructive pulmonary disease, unspecified (principal)
CPT/HCPCS: 99214

== ENCOUNTER → 2025-07-15 10:04 | Outpatient (BNVA) | payer OTHER, SELFPAY | PROVIDERS: PCP Internal Medicine; Visit Provider Nurse Practitioner Family | DX: J44.9 Chronic obstructive pulmonary disease, unspecified (principal); R91.8 Other nonspecific abnormal finding of lung field; F17.210 Nicotine dependence, cigarettes, uncomplicated | CPT/HCPCS: 94640; 99212 ==

== ENCOUNTER → 2025-07-15 23:59 | Outpatient (BNV) | payer OTHER, SELFPAY | PROVIDERS: PCP Internal Medicine; Visit Provider Internal Medicine | DX: E11.9 Type 2 diabetes mellitus without complications (principal); J44.9 Chronic obstructive pulmonary disease, unspecified; I10 Essential (primary) hypertension | CPT/HCPCS: G0179 ==

== ENCOUNTER 2025-08-09 09:51 | Outpatient (REF) | payer OTHER, SELFPAY ==
--- OUTSIDE RECORDS SUMMARY | 2025-08-09 12:35 | XMS_ITS | Data Portability ---
Author Organization [facility], [facility] Address [address] [place] [id number] Care Team Providers Care Rn Hemo Dialysis Name Role Phone [facility] Referring Provider [phone] Assessment Encounter Date Assessment Date Assessment LastModified by Organization Details LastModified Time 03/10/2023 03/10/2023 I provided real -time medical direction via phone for this encounter, and was available for additional phone based assistance as needed. I have reviewed and agree with the Assessment and Plan as documented by the Framing Mill Operator. Patient given the opportunity to ask questions. Advised if develops CP/severe SOB/turning blue/ AMS/ syncope/ hi fever to call 911- advised need to discuss further venous stasis pain management with pcp tomorrow- he verbalized understanding of instructions to medic- little interest in dietary modification [email or web address] Not available 03/10/2023 13:23:52 Plan of Treatment Reminders Order Date Submit Date Provider Last Modified By Organization Details Last Modified Time Details Appointments None recorded. Lab glucose, fingerstick , blood 2022 023 [email or web address], [address] 3 13:14:41 BMP, serum or plasma 2022 023 [email or web address], [address] 3 13:21:46 Referral None recorded. Procedures None recorded. Surgeries None recorded. Imaging None recorded. Medication Orders ketorolac 30 mg/mL (1 mL) injection solution 2022 023 [email or web address] 0 [facility]/Pharmacy #[id number], [address] [facility] [place], [address], 3 13:21:46 amoxicillin 500 mg capsule 2022 023 [facility]/Pharmacy #[id number], [address] [place], [address], 10:48:25 Patient TargetsNo targets recorded. Patient InstructionsNo instructions recorded. Reason for Referral None Reported. Results Created Date Observation Date Name Description Value Unit Range Abnormal Flag Note LastModifiedBy Organization Detail LastModifiedTime 03/10/20 23 03/10/2023 BMP, serum or plasm a BUN 12 Not Available Main - Ins [address], [address] [place] [address] 03/10/2023 13:14:50 03/10/2003/10/2023 BMP, serum or plasm a Ca I roseann 1.23 Not Available [facility] ed [address] [place] [address], [address] [place] [address] 03/10/2023 13:14:50 03/10/20 23 03/10/2023 BMP, serum or plasm a CI- 103 Not Available Main - Ins [address], [address] [place] [address] 03/10/2023 13:14:50 03/10/20 23 03/10/2023 BMP, serum or plasm a CRE 0.5 Not Available Main - Ins [address], [address] [place] [address] 03/10/2023 13:14:50 03/10/20 23 03/10/2023 BMP, serum or plasm a GLU did not report see finger stick Not Available [facility] - [address], [address] [place] [address] 03/10/2023 13:14:50 03/10/20 23 03/10/2023 BMP, serum or plasm a K+ 4.1 Not Available Main - Ins [address], [address] [place] [address] 03/10/2023 13:14:50 03/10/20 23 03/10/2023 BMP, serum or plasm a Na+ 135 Not Available Main - Ins [address], [address] [place] [address] 03/10/2023 13:14:50 03/10/20 23 03/10/2023 BMP, serum or plasm a tCO2 24 Not Available Main - Ins [address], [address] [place] [address] 03/10/2023 13:14:50 03/10/20 23 03/10/2023 BMP, serum or plasm a eGFR not report ed Not Available Main - [facility] ed [address] [place] [address], [phone] 03/10/2023 13:14:50 03/10/20 23 03/10/2023 gluco se, andrei batista k, blood Blood Glucose: mg/dl 295 Not Available Main - Insted [address] [place] [address], [phone] 03/10/2023 13:14:08 Result Notes None recorded. Medical [...] Available No t Available Comfort EZ Pen [place] 31 gauge x 5/16 USE DIRECTED active [...] Address Organization Details Last Updated DateTime 3 566361. 88 g 18 /min 85 /min 97.1 [...] Updated DateTime 3 89 /min 18 /min 546784. 92 g 97 % 97 % 97.1 [degF] 18 /min 97.1 [degF] 89 /min 743539. 92 g 97 % 97 % Not [...] Diagnosis SNOMED-CT Code Diagnosis ICD10 Code Diagnosis IMO Codes Diagnosis Note 8848 Yaya Conley MD Main - [address] [phone] 01/10/2023 10:38:08 01/12/2023 09:43:41 Paronychia of finger of right hand [id number] L03.011 This 67-year-ol d male has had [...] PCP. The patient agreed with this plan. [id number] Yarelis Osborne MD Main - instED [address] [place] [address] 03/10/2023 12:54:58 03/11/2023 14:14:21 Chronic pain syndrome 670099830 G89.4 chronic edema/ venous stasis of LE- [...] cessation will assist w/ reducing PVD- is intermediate accountant commitment - advised no simple fix Health Concerns Section Related Observation LastModified by Organization Detai ls LastModified Time None Recorded Concern Status LastModified by Organization Details LastModified Time None Recorded Advance Directives Directive None Recorded Payers Insurance Date Sequence Insurance Name Policy Number Policy Ramirez Covered Member ID Ramirez Member ID Guarantor Name 03/10/2023 1 [facility] - DOS PRIOR TO 2023 - DUAL ELIGIBLE (MEDICARE REPLACEMENT/AD VANTAGE - HMO) Gilberto Vásquez [id number] Gilberto Vásquez 11/22/2023 1 [facility] - DOS ON OR AFTER 2023 - DUAL ELIGIBLE - SENIOR LIVING OPTIONS AND ONE CARE (MEDICARE REPLACEMENT/AD VANTAGE - HMO) Gilberto Vásquez [id number] Gilberto Vásquez Notes Date Note Type Note Provider Name and Address Organization Details Recorded Time 01/10/2023 text/html ROS as noted in the HPI CRC Nursing Assessment: Reason For Request: Infected [...] like thumb evaluated. Yaya Conley MD [address] [facility],[address], [place], [address], [place] [employer] - [employer] 01/10/2023 10:58:16 03/10/2023 text/html ROS as noted in the HPI CRC Nursing Assessment: Reason For Request: pt [...] Member would like to be evaluated- Kathya SEGMD: pat non compliant with diet- hi salt/ sugar- had coffee w/ sugar when medic arrived/home poorly kept/hygiene issues noted by medic- no fever/chills/ no increased SOB/ no CP- wants something for pain in legs- is taking Tylenol 650mg 3 tablets every 6 hrs without relief- still smoking........... .................. .................. .................. .................. .................. .................. .................. .... Framing Mill Operator Note From Jasbir Cornell: Pt reports one [...] ............... Disposition: Fulfilled Yarelis Osborne MD [address] [facility],[address], [place], [address], [employer] - [employer]URNS 03/10/2023 17:51:25
== END 2025-08-09 09:52 | disposition home or self-care (01) ==
LOC: HO.HMGCLDS 09:51
PROVIDERS: PCP Internal Medicine; Visit Provider Internal Medicine
DX: E11.65 Type 2 diabetes mellitus with hyperglycemia (principal); E11.21 Type 2 diabetes mellitus with diabetic nephropathy; E11.42 Type 2 diabetes mellitus with diabetic polyneuropathy; I10 Essential (primary) hypertension; E66.9 Obesity, unspecified; J44.9 Chronic obstructive pulmonary disease, unspecified; E78.5 Hyperlipidemia, unspecified; M17.0 Bilateral primary osteoarthritis of knee; E53.8 Deficiency of other specified B group vitamins; E55.9 Vitamin D deficiency, unspecified; F33.41 Major depressive disorder, recurrent, in partial remission; Z23 Encounter for immunization; Z91.81 History of falling; Z74.09 Other reduced mobility; Z79.4 Long term (current) use of insulin; Z79.899 Other long term (current) drug therapy
CPT/HCPCS: 83036; 90471; 90677; 99212

== ENCOUNTER 2025-08-09 09:51 | Outpatient (AMB) | payer OTHER, SELFPAY ==
[2025-08-09 09:55] VITALS: BP 156/78; PULSE 82; RESP 18; TEMP 36.5; O2SAT 94; BMI 35.1
--- NOTE | 2025-08-09 09:55 | A.OFFPC_ITS ---
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: No Allergies No Known Allergies (No Known Allergies*) Allergy (Verified 08/09/25 09:56) Medication List - Last Reconciled 08/09/25 by Toby Pugh MD acetaminophen ER (Tylenol Arthritis Pain) 650 mg PO Q12H 90 days blood sugar diagnostic (FreeStyle Lite Strips) 3 times a day blood-glucose meter (FreeStyle Lite Meter kit) 4 times a day fluticasone propion-salmeterol 250-50 mcg/dose (Advair Diskus) 1 ea PO BID insulin degludec (Tresiba FlexTouch U-200 insulin) 80 units (0.4 mL) subcut DAILY ipratropium-albuterol 0.5 mg-3 mg(2.5 mg base)/3 mL 3 mL inhalation Q6H PRN lancets (FreeStyle Lancets) 3 times a day lisinopril 5 mg PO DAILY metformin 1,000 mg PO BID 90 days naproxen 500 mg PO BID 90 days nifedipine ER 30 mg PO DAILY pen needle, diabetic (Comfort EZ Pen [place]) USE DIRECTED prednisone 10 mg PO DIRECTED repaglinide 2 mg PO TID sertraline 100 mg PO DAILY simvastatin 40 mg PO BEDTIME sitagliptin phosphate (Januvia) 100 mg PO DAILY Tobacco use date assessed: 08/09/25 Dental Screening Dental Screen Date: 05/07/25 HPI 3m f/u HPI Details History The patient is a 70-year-old male with a history of obesity, severe bilateral osteoarthritis uses scooter anxiety lipid disorder presenting with elevated blood pressure, diabetes mellitus, and Chronic Obstructive Pulmonary Disease (COPD). Hypertension: - The patient has been experiencing elev ated blood pressure readings. - Currently, his blood pressure is recor ded at 156/78 mmHg. - Management of his blood pressure is th rough the [facility] office. - He is on Lisinopril 5 mg, which will b e increased to 10 mg due to current levels. Diabetes Mellitus:. - Current home blood glucose readings ar e noted to be between 98 and 145 mg/dL. - Last hemoglobin A1c is recorded at 7.1 as of today. - Medications are refilled through this office, and diabetic management includes insulin which is administered by a visiting nurse. Chronic Obstructive Pulmonary Disease (COPD): - The patient has COPD and is under the care of a legal contracts specialist. - He is prescribed Advair as a maintenan ce inhaler and ipratropium. - Prednisone was recently prescribed due to wheezing symptoms. - The patient uses a breathing machine d aily. - He reports smoking occasionally despit e COPD. Social History: - The patient occasionally smokes tobacc o. - He has a nurse visiting daily to admin ister insulin. - Reports anxiety related to housing iss ues. Problem List - Essential Hypertension - Diabetes Mellitus - Chronic Obstructive Pulmonary Disease (COPD) - Anxiety - obesity - scooter dependent due to severe osteoa rthritis multiple joints especially knees - continued to smoke [place] of Care - Pulmonology for COPD management - Nurse visits daily for insulin adminis tration Plan - Increase Lisinopril dosage from 5 mg t o 10 mg for better blood pressure control. - Continue current diabetes management; meet hemoglobin A1c goal of 7.1. Encourage the patient to have pending metabolic profile and CBC tests. - Reinforce smoking cessation for COPD m anagement and monitor wheezing; pulmonary therapy scheduled. - Advise continuation of prescribed COPD medications and daily use of breathing machine. And follow-up with legal contracts specialist - Administer pneumonia vaccine today and plan tetanus vaccine during the next visit. - Address anxiety as it may impact blood pressure. 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 x3 motor intact skin: Normal turgor [facility] Medical History Bilateral post-traumatic osteoarthritis of knee Pain in right elbow Depression, major, recurrent Obesity (BMI 30-39.9) Dyslipidemia Hypertension Vitamin D deficiency B12 deficiency Diabetic nephropathy Diabetic polyneuropathy associated with type 2 diabetes mellitus 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 Diabetes type 2, uncontrolled Surgical History History of surgery of head History of back surgery Family History Father Diabetes Mother Alzheimers disease Social History Household Members: None Housing: Apartment Alcohol intake: current Alcohol intake frequency: 0-2 drinks per day Alcohol type: hard liquor Patient Tobacco Use Status: Current everyday Tobacco user Cigarette Packs Per Day: 1 Cigarettes Per Day: 20 e-Cigarette/Vaping Use: Never Used service: No Current occupational status: unemployed, retired and disabled Cognitive needs: No Hearing needs: No Vision needs: Yes Questionnaire Thrive Questionnaire Date Thrive assessed: 05/07/25 AMBAR-7 AMB Questionnaire AMBAR-7 Date AMBAR - 7 assessed: 05/07/25 Source: Developed by Drs. Clark Ledezma, Ellie Marie, Alfred Tenorio and colleagues, with an educational alexis from [employer]. Physical exam (Primary Care) Vital Signs: Last Vital Signs Temp 97.7 F 08/09/25 09:55 Pulse 82 08/09/25 09:55 Resp 18 08/09/25 09:55 BP 156/78 H 08/09/25 09:55 Pulse Ox 94 08/09/25 09:55 Oxygen Delivery Method Room Air 08/09/25 09:55 BMI result Body Mass Index 35.1 Tobacco/Smoking Status: Tobacco use Status Tobacco use date assessed 08/09/25 08/09/25 09:58 Patient Tobacco Use Status Current everyday Tobacco 08/09/25 09:58 e-Cigarette/Vaping Use Never Used 08/09/25 09:58 Thrive Assessment: Date of Thrive Assessment Date Thrive assessed 05/07/25 08/09/25 09:58 Results AMB Hemoglobin A1c AMB Hemoglobin A1c 7.1 % Last Edit by Amna Coto CMA on 08/09/25 10:15 Immunizations pneumoc 20-katerina conj-dip cr(PF) 0.5 mL IM syringe Performing Provider: Toby Pugh MD Performing Location: [facility] Administered by: Amna Coto CMA on 08/09/25 10:40 Dose Route Admin Location Dispensed Lot Number Expiration Date [place] Utility Agent 0.5 mL IM Right Deltoid 0.5 mL [id number] 12/14/25 4956-5000-52 [place] [employer] Total Dispensed Waste 0.5 mL 0 % VIS Given Date VIS Provided VIS Publication Date 08/09/25 Single Vaccine 25 Eligibility Eligibility Date Funding Source Not [facility] Eligible 08/09/25 Private Results Reviewed Results Reviewed: Laboratory Last Values Hgb A1c (Clinic) 7.1 % (4.0-6.0) H 08/09/25 10:08 Coding Level of Care Code Est Pt Level 5 (18198) Diagnoses Uncontrolled type 2 diabetes mellitus with hyperglycemia E11.65 Glycemic state: with hyperglycemia Primary hypertension I10 Hypertension type: primary hypertension Dyslipidemia E78.5 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 Z79.4 Diabetic nephropathy associated with type 2 diabetes mellitus E11.21 Diabetes mellitus type: type 2 Diabetic polyneuropathy associated with type 2 diabetes mellitus E11.42 Primary osteoarthritis of both knees M17.0 Osteoarthritis type: primary B12 deficiency E53.8 Vitamin D deficiency E55.9 Obesity (BMI 30-39.9) E66.9 Immobility Z74.09 Recurrent major depressive disorder, in partial remission F33.41 Active/Remission status: in partial remission Risk for falls Z91.81 Time Spent (min) 40 Comment complex, multiple meds and problem / face to face with patient and career technical counselor, coordinatio Assessment & Plan Assessment & Plan (1) Diabetes type 2, uncontrolled: Code(s): E11.65 - Type 2 diabetes mellitus with hyperglycemia Category: Medical Qualifiers: Glycemic state: with hyperglycemia Qualified Code(s): E11.65 - Type 2 diabetes mellitus with hyperglycemia (2) Hypertension: Code(s): I10 - Essential (primary) hypertension Category: Medical Qualifiers: Hypertension type: primary hypertension Qualified Code(s): I10 - Essential (primary) hypertension (3) Dyslipidemia: Code(s): E78.5 - Hyperlipidemia, unspecified Category: Medical (4) 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: Code(s): Z79.4 - roasterman (current) use of insulin Category: Medical (5) Diabetic nephropathy: Code(s): E11.21 - Type 2 diabetes mellitus with diabetic nephropathy Category: Medical Qualifiers: Diabetes mellitus type: type 2 Qualified Code(s): E11.21 - Type 2 diabetes mellitus with diabetic nephropathy (6) Diabetic polyneuropathy associated with type 2 diabetes mellitus: Code(s): E11.42 - Type 2 diabetes mellitus with diabetic polyneuropathy Category: Medical (7) Osteoarthritis of knees, bilateral: Code(s): M17.0 - Bilateral primary osteoarthritis of knee Category: Medical Qualifiers: Osteoarthritis type: primary Qualified Code(s): M17.0 - Bilateral primary osteoarthritis of knee (8) B12 deficiency: Code(s): E53.8 - Deficiency of other specified B group vitamins Category: Medical (9) Vitamin D deficiency: Code(s): E55.9 - Vitamin D deficiency, unspecified Category: Medical (10) Obesity (BMI 30-39.9): Code(s): E66.9 - Obesity, unspecified Category: Medical (11) Immobility: Code(s): Z74.09 - Other reduced mobility Category: Medical (12) Depression, major, recurrent: Code(s): F33.9 - Major depressive disorder, recurrent, unspecified Category: Medical Qualifiers: Active/Remission status: in partial remission Qualified Code(s): F33.41 - Major depressive disorder, recurrent, in partial remission (13) Risk for falls: Code(s): Z91.81 - History of falling Category: Medical Plan Management of obesity, severe bilateral osteoarthritis uses scooter anxiety lipid disorder presenting with elevated blood pressure, diabetes mellitus, and Chronic Obstructive Pulmonary Disease (COPD). Hypertension: - The patient has been experiencing elevated blood pressure readings. - Currently, his blood pressure is recorded at 156/78 mmHg. - Management of his blood pressure is through the [facility] office. - He is on Lisinopril 5 mg, which will be increased to 10 mg due to current levels. Diabetes Mellitus:. - Current home blood glucose readings are noted to be between 98 and 145 mg/dL. - Last hemoglobin A1c is recorded at 7.1 as of today. - Medications are refilled through this office, and diabetic management includes insulin which is administered by a visiting nurse. Chronic Obstructive Pulmonary Disease (COPD): - The patient has COPD and is under the care of a legal contracts specialist. - He is prescribed Advair as a maintenance inhaler and ipratropium. - Prednisone was recently prescribed due to wheezing symptoms. - The patient uses a breathing machine daily. - He reports smoking occasionally despite COPD. Social History: - The patient occasionally smokes tobacco. - He has a nurse visiting daily to administer insulin. - Reports anxiety related to housing issues. Problem List - Essential Hypertension - Diabetes Mellitus - Chronic Obstructive Pulmonary Disease (COPD) - Anxiety - obesity - scooter dependent due to severe osteoarthritis multiple joints especially knees - continued to smoke [place] of Care - Pulmonology for COPD management - Nurse visits daily for insulin administration Plan - Increase Lisinopril dosage from 5 mg to 10 mg for better blood pressure control. - Continue current diabetes management; meet hemoglobin A1c goal of 7.1. Encourage the patient to have pending metabolic profile and CBC tests. - Reinforce smoking cessation for COPD management and monitor wheezing; pulmonary therapy scheduled. - Advise continuation of prescribed COPD medications and daily use of breathing machine. And follow-up with legal contracts specialist - Administer pneumonia vaccine today and plan tetanus vaccine during the next visit. - Address anxiety as it may impact blood pressure. Continue sertraline Follow-up 3 months Orders: Orders AMB Hemoglobin A1c Today E11.65 - Type 2 diabetes mellitus with hyperglycemia Pneumococcal 20 Immunization Today Z23 - Encounter for immunization Medications: Changed From lisinopril 5 mg PO DAILY 30 tabs 5RF E11.65 - Type 2 diabetes mellitus with hyperglycemia To lisinopril 10 mg PO DAILY 90 tabs 0RF 90 days E11.65 - Type 2 diabetes mellitus with hyperglycemia
== END 2025-08-09 10:45 | disposition home or self-care (01) ==
LOC: HO.HMCC 09:52
PROVIDERS: PCP Internal Medicine; Visit Provider Internal Medicine
DX: E11.65 Type 2 diabetes mellitus with hyperglycemia (principal); Z79.4 Long term (current) use of insulin; E11.21 Type 2 diabetes mellitus with diabetic nephropathy; E11.42 Type 2 diabetes mellitus with diabetic polyneuropathy; I10 Essential (primary) hypertension; E78.5 Hyperlipidemia, unspecified; M17.0 Bilateral primary osteoarthritis of knee; E53.8 Deficiency of other specified B group vitamins; E55.9 Vitamin D deficiency, unspecified; F33.41 Major depressive disorder, recurrent, in partial remission; Z91.81 History of falling; Z23 Encounter for immunization

== ENCOUNTER 2025-08-16 09:13 | Outpatient (REF) | payer OTHER, SELFPAY ==
--- OUTSIDE RECORDS SUMMARY | 2025-08-16 10:08 | XMS_ITS | Data Portability ---
Author Organization [facility], [facility] Address [address] [place] [phone] Care Team Providers Care Oral Surgery Technician Name Role Phone [facility] Referring Provider Assessment Encounter Date Assessment Date Assessment LastModified by Organization Details LastModified Time 03/10/2023 03/10/2023 I provided real -time medical direction via phone for this encounter, and was available for additional phone based assistance as needed. I have reviewed and agree with the Assessment and Plan as documented by the Fixed Income Manager. Patient given the opportunity to ask questions. Advised if develops CP/severe SOB/turning blue/ AMS/ syncope/ hi fever to call 911- advised need to discuss further venous stasis pain management with pcp tomorrow- he verbalized understanding of instructions to medic- little interest in dietary modification Not available 03/10/2023 13:23:52 Plan of Treatment Reminders Order Date Submit Date Provider Last Modified By Organization Details Last Modified Time Details Appointments None recorded. Lab glucose, fingerstick , blood 2022 023 [email or web address] 0 [facility], [address] [place] [address], [phone] 3 13:14:41 BMP, serum or plasma 2022 023 [email or web address], [address] 3 13:21:46 Referral None recorded. Procedures None recorded. Surgeries None recorded. Imaging None recorded. Medication Orders ketorolac 30 mg/mL (1 mL) injection solution [email or web address] [facility]/Pharmacy #[id number], [address] [facility] [place], [address], 3 13:21:46 amoxicillin 500 mg capsule 2022 023 [facility]/Pharmacy #[id number], [address] [place], [address], 10:48:25 Patient TargetsNo targets recorded. Patient InstructionsNo instructions recorded. Reason for Referral None Reported. Results Created Date Observation Date Name Description Value Unit Range Abnormal Flag Note LastModifiedBy Organization Detail LastModifiedTime 03/10/20 23 03/10/2023 BMP, serum or plasm a BUN 12 Not Available Main - Ins [address], [address] [place] [address] 03/10/2023 13:14:50 03/10/2003/10/2023 BMP, serum or plasm a Ca I roseann 1.23 Not Available [facility] ed [address] [place] [address], [address] [place] [address] 03/10/2023 13:14:50 03/10/20 23 03/10/2023 BMP, serum or plasm a CI- 103 Not Available Main - Ins [address], [address] [place] [address] 03/10/2023 13:14:50 03/10/20 23 03/10/2023 BMP, serum or plasm a CRE 0.5 Not Available Main - Ins [address], [address] [place] [address] 03/10/2023 13:14:50 03/10/20 23 03/10/2023 BMP, serum or plasm a GLU did not report see finger stick Not Available [facility] - [address], [address] [place] [address] 03/10/2023 13:14:50 03/10/20 23 03/10/2023 BMP, serum or plasm a K+ 4.1 Not Available Main - Ins [address], [address] [place] [address] 03/10/2023 13:14:50 03/10/20 23 03/10/2023 BMP, serum or plasm a Na+ 135 Not Available Main - Ins [address], [address] [place] [address] 03/10/2023 13:14:50 03/10/20 23 03/10/2023 BMP, serum or plasm a tCO2 24 Not Available Main - Ins [address], [address] [place] [address] 03/10/2023 13:14:50 03/10/20 23 03/10/2023 BMP, serum or plasm a eGFR not report ed Not Available Main - [facility] ed [address] [place] [address], [phone] 03/10/2023 13:14:50 03/10/20 23 03/10/2023 gluco se, andrei batista k, blood Blood Glucose: mg/dl 295 Not Available Main - Insted [address] [place] [address], [phone] 03/10/2023 13:14:08 Result Notes None recorded. Medical [...] Available No t Available Comfort EZ Pen [place] 31 gauge x 5/16 USE DIRECTED active [...] Address Organization Details Last Updated DateTime 3 462555. 88 g 18 /min 85 /min 97.1 [...] Updated DateTime 3 89 /min 18 /min 077484. 92 g 97 % 97 % 97.1 [degF] 18 /min 97.1 [degF] 89 /min 695531. 92 g 97 % 97 % Not [...] Note 8848 Yaya Conley MD Main - [address] [address] 01/10/2023 10:38:08 01/12/2023 09:43:41 Paronychia of finger of right hand [id number] 3119763 L03.011 This 67-year-ol d male has had [...] PCP. The patient agreed with this plan. 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 - advised no simple fix Health Concerns Section Related Observation LastModified by Organization Detai ls LastModified Time None Recorded Concern Status LastModified by Organization Details LastModified Time None Recorded Advance Directives Directive None Recorded Payers Insurance Date Sequence Insurance Name Policy Number Policy Ramirez Covered Member ID Ramirez Member ID Guarantor Name 03/10/2023 1 [facility] - DOS PRIOR TO 2023 - DUAL ELIGIBLE (MEDICARE REPLACEMENT/AD VANTAGE - HMO) Gilberto Vásquez [id number] Gilberto Vásquez 11/22/2023 1 [facility] - DOS ON OR AFTER 2023 - DUAL ELIGIBLE - FDC OPTIONS AND ONE CARE (MEDICARE REPLACEMENT/AD VANTAGE - HMO) Gilberto Vásquez [id number] Gilberto Vásquez Notes Date Note Type Note [...] like thumb evaluated. Yaya Conley MD [address] [facility],[address], [place], [address], [place] [employer] - [employer] 01/10/2023 10:58:16 03/10/2023 text/html ROS as noted [...] .................. .................. .................. .................. .................. .................. .... Fixed Income Manager Note From Jasbir Cornell: Pt reports [...] ............... Disposition: Fulfilled Yarelis Osborne MD [address] [facility],[address], [place], [address], [employer] - [employer]URNS 03/10/2023 17:51:25
[2025-08-16 10:34] LABS: MANUAL DIFF FLAG NO
[2025-08-16 10:43] LABS: Hematocrit 48.6 % (42.0-52.0); Hemoglobin 15.8 g/dl (14.0-18.0); Imm Gran Abs Auto 0.07 X10*3/uL (0.00-0.03); Imm Gran Pct Auto 0.8 % (0.0-0.4); Lymphocytes Absolute Auto 1.6 X10*3/uL (1.2-4.9); Mean Corpuscular HGB Conc 32.5 g/dl (31.0-36.0); Mean Corpuscular Hemoglobin 29.0 pg (27.0-33.0); Mean Corpuscular Volume 89.2 fL (80.0-98.0); NRBC Abs Auto 0.000 X10*3/uL (0.0-0.012); NRBC Pct Auto 0.0 /100WBC (0.0-0.2); Platelet Count 276 X10*3/uL (160-400); Red Blood Count 5.45 X10*6/uL (4.60-5.80); White Blood Count 8.6 X10*3/uL (4.8-10.8)
[2025-08-16 11:34] LABS: Alanine Aminotransferase 28 U/L (0-40); Albumin Level 4.4 g/dL (3.5-5.0); Alkaline Phosphatase 96 U/L (39-117); Anion Gap 12 (12-20); Aspartate Amino Transferase 26 U/L (5-37); Blood Urea Nitrogen 12 mg/dL (9-16); Calcium 9.9 mg/dL (8.4-10.2); Carbon Dioxide 30 mmol/L (22-29); Chloride 106 mmol/L (96-108); Estimated Glomerular Filt Rate > 60; Potassium 4.6 mmol/L (3.3-5.1); Sodium 143 mmol/L (135-145); Total Protein 7.4 g/dL (6.5-8.0)
[2025-08-16 11:51] LABS: Vitamin B12 293 pg/mL (200-900)
[2025-08-21 07:24] LABS: Vitamin D 25-OH, D2 <4 ng/mL; Vitamin D 25-OH, D3 19 ng/mL; Vitamin D 25-OH, Total 19 ng/mL (30-100)
== END 2025-08-16 09:14 | disposition home or self-care (01) ==
LOC: HO.HMGCLDS 09:13
PROVIDERS: PCP Internal Medicine; Visit Provider Internal Medicine
DX: E11.65 Type 2 diabetes mellitus with hyperglycemia (principal); E11.21 Type 2 diabetes mellitus with diabetic nephropathy; E11.42 Type 2 diabetes mellitus with diabetic polyneuropathy; Z79.4 Long term (current) use of insulin; E66.9 Obesity, unspecified; E53.8 Deficiency of other specified B group vitamins; E55.9 Vitamin D deficiency, unspecified; M17.0 Bilateral primary osteoarthritis of knee; I10 Essential (primary) hypertension; E78.5 Hyperlipidemia, unspecified; F33.41 Major depressive disorder, recurrent, in partial remission; Z91.81 History of falling; Z74.09 Other reduced mobility
CPT/HCPCS: 36415; 80053; 82306; 82607; 83721; 84443; 85025